=== PATIENT | male | born 1960 | race Caucasian/White ===

== ENCOUNTER 2019-02-21 11:16 | Outpatient (CLI) | payer MEDICAID, SELFPAY ==
--- NOTE | 2019-02-21 11:24 | XRR_ITS ---
PROCEDURE INFORMATION: Exam: XR Left Knee Exam date and time: 02/21/2019 11:45 AM Age: 58 years old Clinical indication: Knee; Left; Patient HX: Pain for 3 weeks, no trauma; Additional info: Left knee joint pain TECHNIQUE: Imaging protocol: XR Left knee. Views: Frontal, lateral, and 2 oblique views. COMPARISON: No relevant prior studies available. FINDINGS: Bones/joints: Normal. Soft tissues: Normal. XR/XR knee LT 4V [id number] IMPRESSION: No acute findings.
== END 2019-02-21 11:17 | disposition home or self-care (01) ==
LOC: RAD 11:20
PROVIDERS: Family Provider Internal Medicine; PCP Internal Medicine; Visit Provider Internal Medicine
DX: M25.562 Pain in left knee (principal)
CPT/HCPCS: 73564

== ENCOUNTER 2019-08-21 13:40 | Emergency (ER) | payer MEDICARE, MEDICAID, SELFPAY ==
[2019-08-21 14:29] VITALS: BP 121/72; PULSE 87; RESP 14; TEMP 37.3; O2SAT 95; BMI 30.5
[2019-08-21 14:40] VITALS: RESP 18
--- NOTE | 2019-08-21 15:04 | XRR_ITS ---
PROCEDURE INFORMATION: Exam: XR Right Knee Exam date and time: 08/21/2019 3:46 PM Age: 59 years old Clinical indication: Injury or trauma; Injury history: Stepped in a hole, twisting right knee; Initial encounter; Sprain or strain; Patella or knee; Injury date: 08/21/19; Injury details: Stepped in hole, twisting right knee. Right leg feels unsteady. ; Additional info: Injury and pain with weightbearing. TECHNIQUE: Imaging protocol: XR Right knee. Views: 3 views. COMPARISON: No relevant prior studies available. FINDINGS: Bones/joints: There is no evidence for acute fracture or malalignment. Soft tissues: Normal. XR/XR knee RT 3V* [id number] IMPRESSION: No acute findings. If there is desire for further evaluation, a MRI could be performed.
--- NOTE | 2019-08-21 15:29 | W.ED.EXTPRO ---
HPI - Extremity Problem General: Chief complaint: Extremity Injury, Lower Stated complaint: R knee injury Time Seen by Provider: 08/21/19 15:03 History of Present Illness: HPI Narrative: Patient is a 59-year-old male who comes to the ED with right knee pain. This morning patient was walking outside and he stepped in a hole causing him to twist his right knee. He did not fall down or hit his head or lose consciousness. He now has right knee pain and he says that when he walks on his right leg feels unsteady. He currently rates the pain a 10 out of 10. Associated symptoms: Deny chest pain, fever(s) or rash Review of Systems Const: Denies: fever(s), chills or fatigue Eyes: Denies: change in vision or eye discomfort ENMT: Denies: throat pain, odynophagia, nasal discharge or nasal congestion Card: Denies: chest pain, palpitations, edema, swelling of feet/ankles, dyspnea on exertion or orthopnea Resp: Denies: dyspnea, productive cough or non-productive cough GI: Denies: abdominal pain, nausea, vomiting, diarrhea, constipation or hematochezia : Denies: flank pain, difficulty urinating, dysuria or hematuria Musc: Reports: extremity pain (right knee); Denies: neck pain, back pain or extremity swelling Skin/Breast: Denies: rash or new lesions Neuro: Denies: headache(s), numbness in extremities or weakness in extremities [facility] ED PFSH: Medical History History of amputation of great toe Hypertension Onycholysis of toenail Polyneuropathy due to type 2 diabetes mellitus Family History Mother Diabetes Denies family history of CAD (coronary artery disease) Clotting disorder Dementia Hyperlipidemia Psychiatric illness Chronic kidney disease (CKD) Suicide Anesthesia complication Bleeding disorder Family history of premature coronary artery disease Lung disease Cancer Hypertension Stroke Social History Smoking and tobacco status: never smoked Alcohol intake: never Substance/Drug Use: never Current occupational status: disabled Physical Exam Const: COMMON NORMALS: patient oriented x3 and alert GENERAL APPEARANCE: cooperative and comfortable NUTRITIONAL APPEARANCE: overweight HENMT: COMMON NORMALS: normocephalic HEAD & SCALP: normocephalic MOUTH: Normal oral and palatal mucosa present THROAT: posterior oropharynx normal and uvula midline Eye: COMMON NORMALS: Equal, round and reactive pupils present PUPIL: Yes Equal, round and reactive pupils present Neck/C-Spine: COMMON NORMALS: supple GENERAL: Yes normal visual inspection Resp: COMMON NORMALS: normal respiratory effort, No retractions, No use of accessory muscles and clear to auscultation bilaterally AUSCULTATION: clear to auscultation bilaterally Cardio: COMMON NORMALS: regular rate, regular rhythm, S1 normal heart sound present, S2 normal heart sound present, No gallops present (Cardio), No clicks present (Cardio), No murmurs present (Cardio) and Peripheral pulses 2+ throughout RATE: regular rate RHYTHM: regular rhythm HEART SOUNDS: S1 normal heart sound present and S2 normal heart sound present PERIPHERAL PULSES: Peripheral pulses 2+ throughout GI: COMMON NORMALS: Normal to inspection, nondistended, normoactive bowel sounds present, Soft to palpation, non-tender and no masses PALPATION: Yes Soft to palpation : COMMON NORMALS: Yes no CVA tenderness BLADDER/KIDNEY EXAM: Yes no CVA tenderness Back/Pelvis: COMMON NORMALS: no CVA tenderness Extremity: COMMON NORMALS: no pedal edema GENERAL: Yes normal exam except as noted RIGHT LOWER EXTREMITY: Yes knee joint Right knee: Yes palpation (tenderness to medial and lateral aspect of knee), Yes ROM (limited due to pain) and Yes neurovascular exam (intact) Neuro: COMMON NORMALS: patient oriented x3 and moves all extremities SENSORIUM/ORIENTATION: Yes alert Skin: COMMON NORMALS: no rashes or lesions noted GENERAL SKIN EXAM: no rashes or lesions noted and dry skin Course Vital Signs: Vital signs: Vital Signs Temperature 99.1 F 08/21/19 14:29 Pulse Rate 87 08/21/19 14:29 Respiratory Rate 18 08/21/19 14:40 Blood Pressure 121/72 08/21/19 14:29 Pulse Oximetry 95 08/21/19 14:29 MDM - Extremity (Nontraumatic) MDM Narrative: Medical decision making narrative: Patient is a 59-year-old male who comes to the ED with right knee pain after having a twist injury this morning. Right knee x-ray showed no acute fractures. I spoke with patient and told him that there are no acute fractures or findings but this does not rule out any soft tissue/ligament tears and that patient would need outpatient imaging set up for further eval by his PCP. Patient was placed in a knee immobilizer and told to follow-up with PCP in 7 to 10 days. He was told to return to the ED if symptoms worsen. Patient understood and agreed with plan. Imaging Data^: Xray Ortho: Attestation: I personally reviewed and interpreted this imaging study as follows: My impression: right knee--No acute findings Radiologist's impression: [address] [address] XRay Report Signed Patient: Lamberto Oliva Unit #: [id number] : 1960 Age/Sex: 59 / M ADM Date: 08/21/19 Loc: ER Room/Bed: Attending Dr: Ordering Provider/Ordering MD: Brady Tapia Date of Service: 08/21/19 Procedure(s): XR knee RT 3V* [id number] Accession Number(s): [id number] Report Number: [id number] PROCEDURE INFORMATION: Exam: XR Right Knee Exam date and time: 08/21/2019 3:46 PM Age: 59 years old Clinical indication: Injury or trauma; Injury history: Stepped in a hole, twisting right knee; Initial encounter; Sprain or strain; Patella or knee; Injury date: 08/21/19; Injury details: Stepped in hole, twisting right knee. Right leg feels unsteady. ; Additional info: Injury and pain with weightbearing. TECHNIQUE: Imaging protocol: XR Right knee. Views: 3 views. COMPARISON: No relevant prior studies available. FINDINGS: Bones/joints: There is no evidence for acute fracture or malalignment. Soft tissues: Normal. XR/XR knee RT 3V* [id number] IMPRESSION: No acute findings. If there is desire for further evaluation, a MRI could be performed. Dictated By: Dylan Styles MD Signed By: Dylan Styles MD Signed Date/Time: 08/21/191650 DD/ 49 Discharge Plan Discharge Patient Disposition: Home, Self-Care Clinical Impression: Acute pain of right knee Condition: Stable Prescriptions: No Action lisinopril-hydrochlorothiazide 20-12.5 mg tablet 1 tab PO DAILY RF: 0 Aspir-81 81 mg Tablet,Delayed Release (Dr/Ec) 81 mg PO DAILY RF: 0 glimepiride 4 mg tablet 4 mg PO DAILY RF: 0 diclofenac sodium 50 mg tablet,delayed release (DR/EC) 50 mg PO BID PRN (Reason: Pain) RF: 0 gabapentin 100 mg capsule 100 mg PO TID RF: 0 lovastatin 20 mg tablet 20 mg PO DAILY RF: 0 metformin 500 mg tablet extended release 24 hr 500 mg PO BID RF: 0 Victoza 2-Kwame 0.6 mg/0.1 mL (18 mg/3 mL) pen injector 1.2 mg SUBCUT DAILY RF: 0 Jardiance 10 mg tablet 10 mg PO DAILY RF: 0 Discharge Orders: Discharge Order (Routine); Ordered 08/21/19 Ordered By: Brady Tapia Referrals: Lauren Kaufman MD [Primary Care Provider] - Discharge Diet: Regular Discharge Activity: Limit activity as instructed and Use walker/crutches as instructed Patient Instructions: Knee Sprain (ED), Knee Pain (ED) Activity Restrictions/Additional Instructions: Follow-up with medical provider as directed in 5-7 days. Take ibuprofen or Tylenol for pain. Rest, ice and elevate right leg. Return to the ER or your medical provider if condition worsens. Please read and understand discharge instructions. If any questions, please ask. Discharge Date/Time: 08/21/19 17:03 Coding Level of Care Code ED Windows Technical Specialist for Aki Fwd Exam Comprehensive
[2019-08-21] MEDS: HYDROcodone-acetaminophen 7.5-325 mg Tablet 1 TAB PO (16:36)
== END 2019-08-21 17:03 | disposition home or self-care (01) ==
PROVIDERS: Emergency Provider Physician Assistant; PCP Internal Medicine
DX: M25.561 Pain in right knee (principal); Z79.82 Long term (current) use of aspirin; I10 Essential (primary) hypertension; E11.42 Type 2 diabetes mellitus with diabetic polyneuropathy
CPT/HCPCS: 12345; 29530; 73562; 99281; 99283

== ENCOUNTER 2019-09-12 14:43 | Outpatient (CLI) | payer MEDICARE, MEDICAID, SELFPAY ==
--- NOTE | 2019-09-12 15:15 | MR_ITS ---
WS: [id number] MRI LEFT KNEE HISTORY: M17.11 Unilateral primary osteoarthritis, LEFT knee COMPARISON: 02/21/2019 Anterior cruciate ligament: There is mild thinning and increased signal in the ACL but majority of fi bers are intact. There is mild waviness throughout the ACL suggests there may be some scarring presen t. Posterior cruciate ligament: Intact. Medial collateral ligament: Intact. Posterior lateral corner structures: Intact. Medial menisci: Linear increased signal in the posterior horn does not definitely extend to an articu lar surface. Cannot confirm a horizontal tear. Lateral meniscus: Intact. Normal signal, size and shape. Extensor mechanism: Distal quadriceps tendon and patellar tendons are intact. Fluid and soft tissue: Small suprapatellar effusion and soft tissue edema surrounding the knee. No Ba ker's cyst. Osseous and articular structures: Patellofemoral compartment: Normal. Medial compartment: Mild narrowing medial compartment with thinning and fissuring of the cartilage. T here is no underlying marrow edema. Small osteophytes from the medial joint line. Lateral compartment: No marrow edema. Very mild thinning of the cartilage and a shallow cartilage def ect along the tibial plateau. MR/MR knee LT wo con* [id number] IMPRESSION: 1. Mild medial and lateral compartment osteoarthropathy. 2. Shallow cartilaginous defect along the lateral tibial plateau. 3. No marrow edema or fractures. 4. Linear increased signal in the posterior horn of the medial meniscus withou t definite extension to an articular surface. 5. Mild tethering of the distal ACL may indicate some scarring and fibrosis. N o complete tear.
== END 2019-09-12 14:44 | disposition home or self-care (01) ==
PROVIDERS: PCP Internal Medicine; Visit Provider Orthopaedic Surgery
DX: M17.0 Bilateral primary osteoarthritis of knee (principal); M89.48 Other hypertrophic osteoarthropathy, other site
CPT/HCPCS: 73721

== ENCOUNTER 2019-10-12 08:46 | Outpatient (RCR) | payer MEDICARE, MEDICAID, SELFPAY | END 2019-11-07 23:59 | disposition home or self-care (01) | LOC: SPT 08:46 | PROVIDERS: PCP Internal Medicine; Referring Provider Orthopaedic Surgery; Visit Provider Orthopaedic Surgery | DX: M17.12 Unilateral primary osteoarthritis, left knee (principal) | CPT/HCPCS: 97110; 97161 ==

== ENCOUNTER → 2020-04-10 15:46 | Outpatient (BNVA) | payer MEDICARE, MEDICAID, SELFPAY | PROVIDERS: PCP Internal Medicine; Visit Provider Nurse Practitioner Family | DX: M25.531 Pain in right wrist (principal); X50.0XXA Overexertion from strenuous movement or load, initial encounter; Z68.33 Body mass index [BMI] 33.0-33.9, adult | CPT/HCPCS: 73110 ==

== ENCOUNTER → 2020-07-28 14:43 | Outpatient (BNVA) | payer MEDICARE, MEDICAID, SELFPAY | PROVIDERS: PCP Internal Medicine; Referring Provider Nurse Practitioner Family; Visit Provider Specialist | DX: M25.531 Pain in right wrist (principal); G56.21 Lesion of ulnar nerve, right upper limb | CPT/HCPCS: 95908 ==

== ENCOUNTER 2020-10-25 09:16 | Emergency (ER) | payer MEDICARE, MEDICAID, SELFPAY ==
[2020-10-25 09:25] VITALS: BP 112/67; PULSE 86; RESP 19; TEMP 37.1; O2SAT 97; BMI 30.2
--- NOTE | 2020-10-25 09:28 | W.ED.EXTPRO ---
HPI - Extremity Problem General: Chief complaint: Extremity Problem,Nontraumatic Stated complaint: Lft Shoulder Pain Time Seen by Provider: 10/25/20 09:19 Source: patient Mode of arrival: ambulatory Limitations: no limitations History of Present Illness: HPI Narrative: Patient is a nice 60-year-old male who presents to ED today for evaluation of left shoulder discomfort that he states has been present over the past week. Patient tells me he has had similar discomforts off and on for several years. Patient states he sometimes will have pain and tingling to his left hand. He has not noticed any weakness or atrophy to the extremity. His pain is exacerbated by range of motion of the shoulder joint. He has been told at one point he possibly could have a rotator cuff tear. Patient denies neck pain. He has not had any acute injury or trauma to the shoulder. He has no complaints of chest pain, shortness of breath, difficulty breathing. MD Complaint: joint pain Onset (ago): day(s) Pain Consistency: constant Location: left and upper extremity Radiation: none Exacerbating factors: range of motion and palpation Associated symptoms: Reports no associated symptoms; Deny chest pain or fever(s) Review of Systems Const: Denies: fever(s), chills, body aches, fatigue or malaise Card: Denies: chest pain, palpitations, irregular heart rhythm, edema, syncope, pre-syncope, dyspnea on exertion, orthopnea or acrocyanosis Resp: Denies: dyspnea Musc: Reports: joint pain (L shoulder); Denies: neck pain, back pain, extremity pain, extremity swelling, joint swelling, joint redness, joint warmth, joint stiffness or decrease in muscle mass Neuro: Reports: sensory changes (reports intermittent paresthesias to left arm); Denies: headache(s) or weakness in extremities [facility] ED PFSH: Medical History (Updated 10/25/20 @ 09:31 by MONA Weeks) History of amputation of great toe Hypertension Onycholysis of toenail Polyneuropathy due to type 2 diabetes mellitus Family History Mother Diabetes Denies family history of CAD (coronary artery disease) Clotting disorder Dementia Hyperlipidemia Psychiatric illness Chronic kidney disease (CKD) Suicide Anesthesia complication Bleeding disorder Family history of premature coronary artery disease Lung disease Cancer Hypertension Stroke Social History Smoking and tobacco status: never smoked Alcohol intake: never Current occupational status: disabled Physical Exam Const: COMMON NORMALS: no acute distress, average body habitus, patient oriented x3, no limitations, healthy appearing, alert and well nourished GENERAL APPEARANCE: cooperative ORIENTATION/CONSCIOUSNESS: Yes awake, Yes oriented to person, Yes oriented to place and Yes oriented to time Neck/C-Spine: COMMON NORMALS: full ROM CERVICAL SPINE: Yes cervical ROM normal, No pain with cervical ROM, No Cervical spine tenderness, No step off deformity and No Paracervical muscle tenderness Resp: COMMON NORMALS: normal respiratory effort and clear to auscultation bilaterally AUSCULTATION: clear to auscultation bilaterally Cardio: COMMON NORMALS: regular rate and regular rhythm RATE: regular rate RHYTHM: regular rhythm Extremity: COMMON NORMALS: normal to inspection, capillary refill normal, no joint enlargement and no clubbing, cyanosis or edema GENERAL: Yes normal exam except as noted LEFT UPPER EXTREMITY: Yes shoulder joint OTHER: full but hesitant ROM; he reports pain to anterior shoulder with flexion/abduction past about 90 degrees; NV intact Neuro: COMMON NORMALS: patient oriented x3, moves all extremities, no focal motor deficits, no sensory deficits noted and gait normal SENSORIUM/ORIENTATION: Yes alert, Yes oriented to person, Yes oriented to place and Yes oriented to time SENSORY EXAM: Yes other (normal sensory to bilateral UEs) MOTOR EXAM: 5/5 motor strength present throughout and Other motor observations present (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 Pain is reproducible on exam. DDx labrum tear, shoulder impingement, biceps/rotator cuff tendinopathy, glenohumeral arthritis. Recommend follow up with PCP in 1-2 weeks if pain persists. Will place on steroids and can use topical voltaran gel. Discharge Plan Discharge Patient Disposition: Home Clinical Impression: Chronic left shoulder pain Condition: Stable Prescriptions: New Medrol (Kwame) 4 mg tablets,dose pack See Rx Instructions .ROUTE .COMPLEX Qty: 21 RF: 0 Voltaren Arthritis Pain 1 % gel 2 g topical TID Qty: 100 RF: 0 Discontinued diclofenac sodium 50 mg tablet,delayed release (DR/EC) 50 mg PO BID PRN (Reason: Pain) RF: 0 No Action (DME) Diabetic Shoes with 3 pairs of insterts See Rx Instructions .Route .MEDSUPPLY Qty: 1 RF: 0 (DME) Elbow pad See Rx Instructions .Route .MEDSUPPLY Qty: 1 RF: 0 lisinopril-hydrochlorothiazide 20-12.5 mg tablet 1 tab PO DAILY RF: 0 Aspir-81 81 mg Tablet,Delayed Release (Dr/Ec) 81 mg PO DAILY RF: 0 glimepiride 4 mg tablet 4 mg PO DAILY RF: 0 gabapentin 100 mg capsule 100 mg PO TID RF: 0 lovastatin 20 mg tablet 20 mg PO DAILY RF: 0 metformin 500 mg tablet extended release 24 hr 500 mg PO BID RF: 0 Victoza 2-Kwame 0.6 mg/0.1 mL (18 mg/3 mL) pen injector 1.2 mg SUBCUT DAILY RF: 0 Jardiance 10 mg tablet 10 mg PO DAILY RF: 0 Discharge Orders: Discharge ED (Routine); Ordered 10/25/20 Ordered By: Chaya Keene Referrals: Lauren Kaufman MD [Primary Care Provider] - Activity Restrictions/Additional Instructions: As we discussed please follow-up with your primary care provider for further evaluation of your left shoulder discomfort. This could include continued conservative management, MRI imaging, physical therapy, or referral to orthopedics. Coding Level of Care Code ED Douper for Aik Jimenez
[2020-10-25 09:32] VITALS: BP 112/67; PULSE 55; RESP 17; O2SAT 96
[2020-10-25] MEDS: dexamethasone 10 mg/mL INJ 6 MG IM (09:36)
[2020-10-25 10:01] VITALS: BP 112/67; PULSE 88; RESP 17; TEMP 37.1; O2SAT 97
== END 2020-10-25 10:15 | disposition home or self-care (01) ==
PROVIDERS: Emergency Provider Physician Assistant; PCP Internal Medicine
DX: G89.29 Other chronic pain (principal); M25.512 Pain in left shoulder; Z79.82 Long term (current) use of aspirin; Z79.84 Long term (current) use of oral hypoglycemic drugs; I10 Essential (primary) hypertension; E11.42 Type 2 diabetes mellitus with diabetic polyneuropathy
CPT/HCPCS: 96372; 99283; J1100

== ENCOUNTER 2021-04-11 12:24 | Emergency (ER) | payer MEDICARE, MEDICAID, SELFPAY ==
[2021-04-11 12:31] VITALS: BP 128/84; PULSE 87; RESP 16; TEMP 37; O2SAT 97
--- NOTE | 2021-04-11 12:38 | W.ED.LOWEXIN ---
HPI - Extremity Injury (Lower) General: Chief Complaint: Extremity Injury, Lower Stated Complaint: Right foot injury Time Seen by Provider: 04/11/21 12:38 Source: patient Mode of arrival: ambulatory Limitations: no limitations History of Present Illness: Patient is a 60-year-old male who presents to ED today for evaluation of a right ankle/foot injury that he sustained yesterday after he stepped off of his truck trailer and rolled his ankle. Patient states he has been ambulatory on the extremity since. No other injuries or complaints at this time. MD complaint: ankle injury and foot injury Onset (ago): day(s) (yesterday) Injury: Right: ankle and foot Place: home Severity: moderate Relieving factors: immobilization Exacerbating factors: weight bearing, movement and palpation Associated symptoms: Reports no associated symptoms Other symptoms: none Review of Systems Musc: Reports: extremity pain (R foot), extremity swelling (R ankle) and joint swelling (R ankle) Neuro: Denies: numbness in extremities or sensory changes [facility] ED PFSH: Medical History (Updated 04/11/21 @ 13:36 by MONA Weeks) History of amputation of great toe Hypertension Onycholysis of toenail Polyneuropathy due to type 2 diabetes mellitus Family History Mother Diabetes Denies family history of CAD (coronary artery disease) Clotting disorder Dementia Hyperlipidemia Psychiatric illness Chronic kidney disease (CKD) Suicide Anesthesia complication Bleeding disorder Family history of premature coronary artery disease Lung disease Cancer Hypertension Stroke Social History Smoking and tobacco status: never smoked Alcohol intake: never Current occupational status: disabled Physical Exam Const: COMMON NORMALS: no acute distress, no limitations and alert GENERAL APPEARANCE: cooperative Extremity: GENERAL: Yes normal exam except as noted RIGHT LOWER EXTREMITY: Yes foot & digits (TTP and swelling to lateral malleolus) Right ankle: Yes neurovascular exam (normal) and Yes foot & digits (TTP lateral proximal foot w/o swelling or deformity) Right foot and digits: Yes neurovascular exam (normal) Neuro: COMMON NORMALS: moves all extremities, no focal motor deficits and no sensory deficits noted SENSORIUM/ORIENTATION: Yes alert Course Vital Signs: Vital signs: Vital Signs Temperature 98.6 F 04/11/21 12:31 Pulse Rate 87 04/11/21 12:31 Respiratory Rate 16 04/11/21 12:31 Blood Pressure 128/84 04/11/21 12:31 Pulse Oximetry 97 04/11/21 12:31 MDM - Extremity Injury (Lower) Medical Decision Making XRs negative. Will JONNATHAN wrap. Declines crutches. Discussed RICE therapy. Follow up with PCP in 1-2 weeks if pain persists. Discharge Plan Discharge Patient Disposition: Home Clinical Impression: Right ankle sprain Qualifiers: Encounter type: initial encounter Involved ligament of ankle: unspecified ligament Qualified Code(s): S93.401A - Sprain of unspecified ligament of right ankle, initial encounter Condition: Stable Prescriptions: No Action (DME) Diabetic Shoes with 3 pairs of insterts See Rx Instructions .Route .MEDSUPPLY Qty: 1 0RF Rx Instructions: As directed by [employer] (DME) Elbow pad See Rx Instructions .Route .MEDSUPPLY Qty: 1 0RF Rx Instructions: As directed (DME) Diabetic shoes with 3 sets of insoles See Rx Instructions .Route .MEDSUPPLY Qty: 1 0RF Rx Instructions: As directed by HOME Medrol (Kwame) 4 mg tablets,dose pack See Rx Instructions .ROUTE .COMPLEX Qty: 21 0RF Rx Instructions: orally per package directions Voltaren Arthritis Pain 1 % gel 2 g topical TID Qty: 100 0RF Rx Instructions: apply to left shoulder up to 3x daily as needed for discomfort lisinopril-hydrochlorothiazide 20-12.5 mg tablet 1 tab PO DAILY 0RF Aspir-81 81 mg Tablet,Delayed Release (Dr/Ec) 81 mg PO DAILY 0RF glimepiride 4 mg tablet 4 mg PO DAILY 0RF gabapentin 100 mg capsule 100 mg PO TID 0RF lovastatin 20 mg tablet 20 mg PO DAILY 0RF metformin 500 mg tablet extended release 24 hr 500 mg PO BID 0RF Victoza 2-Kwame 0.6 mg/0.1 mL (18 mg/3 mL) pen injector 1.2 mg SUBCUT DAILY 0RF Jardiance 10 mg tablet 10 mg PO DAILY 0RF Discharge Orders: Discharge ED (Routine); Ordered 04/11/21 Ordered By: Chaya Keene Referrals: Lauren Kaufman MD [Primary Care Provider] - Patient Instructions: Ankle Sprain (ED), RICE Therapy Coding Level of Care Code ED Pecan Mallow Dipper for Aki Jimenez
--- NOTE | 2021-04-11 12:41 | XRR_ITS ---
PROCEDURE INFORMATION: Exam: XR Right Foot Exam date and time: 04/11/2021 12:41 PM Age: 60 years old Clinical indication: Injury or trauma; Fall; Blunt trauma; Right; Patient HX: C/O R foot/ ankle pain and swelling after missing a step; Additional info: Pain, injury TECHNIQUE: Imaging protocol: XR Right foot. Views: 3 or more views. COMPARISON: CR XR knee RT 3V* [id number] 08/21/2019 3:34 PM FINDINGS: Bones/joints: Osseous structures are intact. Negative for fracture. Joint spaces are preserved. Soft tissues: Normal. XR/XR foot RT min 3V* [id number] IMPRESSION: No acute findings.
--- NOTE | 2021-04-11 12:41 | XRR_ITS ---
PROCEDURE INFORMATION: Exam: XR Right Ankle Exam date and time: 04/11/2021 12:41 PM Age: 60 years old Clinical indication: Injury or trauma; Fall; Blunt trauma; Right; Patient HX: C/O R foot/ ankle pain and swelling after missing a step; Additional info: Injury, pain TECHNIQUE: Imaging protocol: XR Right ankle. Views: 3 or more views. COMPARISON: CR XR knee RT 3V* [id number] 08/21/2019 3:34 PM FINDINGS: Bones/joints: Osseous structures are intact. Negative for fracture. Joint spaces are preserved. Soft tissues: Soft tissue swelling noted around the ankle. XR/XR ankle RT min 3V* [id number] IMPRESSION: No acute findings.
== END 2021-04-11 13:47 | disposition home or self-care (01) ==
PROVIDERS: Emergency Provider Physician Assistant; PCP Internal Medicine
DX: S93.401A Sprain of unspecified ligament of right ankle, initial encounter (principal); Z79.84 Long term (current) use of oral hypoglycemic drugs; Z79.82 Long term (current) use of aspirin; I10 Essential (primary) hypertension; E11.42 Type 2 diabetes mellitus with diabetic polyneuropathy; X50.1XXA Overexertion from prolonged static or awkward postures, initial encounter
CPT/HCPCS: 73610; 73630; 99282

== ENCOUNTER → 2021-04-22 10:35 | Outpatient (BNVA) | payer MEDICARE, MEDICAID, SELFPAY | PROVIDERS: PCP Internal Medicine; Visit Provider Podiatrist Foot & Ankle Surgery | DX: M25.571 Pain in right ankle and joints of right foot (principal); M12.9 Arthropathy, unspecified; Z46.89 Encounter for fitting and adjustment of other specified devices; S93.401D Sprain of unspecified ligament of right ankle, subsequent encounter; S82.839D Other fracture of upper and lower end of unspecified fibula, subsequent encounter for closed fracture with routine healing; X58.XXXD Exposure to other specified factors, subsequent encounter | CPT/HCPCS: 73610; 97760; L1902 ==

== ENCOUNTER 2021-04-22 11:44 | Outpatient (CLI) | payer MEDICARE, MEDICAID, SELFPAY | END 2021-04-22 11:45 | disposition home or self-care (01) | LOC: SPT 11:45 | PROVIDERS: PCP Internal Medicine; Visit Provider Podiatrist Foot & Ankle Surgery | DX: Z46.89 Encounter for fitting and adjustment of other specified devices (principal); S93.401D Sprain of unspecified ligament of right ankle, subsequent encounter; S82.839D Other fracture of upper and lower end of unspecified fibula, subsequent encounter for closed fracture with routine healing; X58.XXXD Exposure to other specified factors, subsequent encounter | CPT/HCPCS: 97760; L1902 ==

== ENCOUNTER → 2021-05-26 13:13 | Outpatient (BNVA) | payer MEDICARE, MEDICAID, SELFPAY | PROVIDERS: PCP Internal Medicine; Visit Provider Podiatrist Foot & Ankle Surgery | DX: S82.839A Other fracture of upper and lower end of unspecified fibula, initial encounter for closed fracture (principal); S93.401A Sprain of unspecified ligament of right ankle, initial encounter; W19.XXXA Unspecified fall, initial encounter; E11.42 Type 2 diabetes mellitus with diabetic polyneuropathy; L60.3 Nail dystrophy; I73.9 Peripheral vascular disease, unspecified; Q66.70 Congenital pes cavus, unspecified foot | CPT/HCPCS: 73610; 99213; 99214 ==

== ENCOUNTER → 2021-06-15 09:04 | Outpatient (BNVA) | payer MEDICARE, MEDICAID, SELFPAY | PROVIDERS: PCP Internal Medicine; Visit Provider Podiatrist Foot & Ankle Surgery | DX: L60.3 Nail dystrophy (principal); Q66.70 Congenital pes cavus, unspecified foot; M25.571 Pain in right ankle and joints of right foot; S82.831A Other fracture of upper and lower end of right fibula, initial encounter for closed fracture; S93.401A Sprain of unspecified ligament of right ankle, initial encounter; M76.71 Peroneal tendinitis, right leg; X58.XXXA Exposure to other specified factors, initial encounter | CPT/HCPCS: 73610; 99213; 99214 ==

== ENCOUNTER → 2021-07-23 14:07 | Outpatient (BNVA) | payer MEDICARE, MEDICAID, SELFPAY | PROVIDERS: PCP Internal Medicine; Visit Provider Podiatrist Foot & Ankle Surgery | DX: M76.71 Peroneal tendinitis, right leg (principal); M25.571 Pain in right ankle and joints of right foot; M79.671 Pain in right foot; L60.3 Nail dystrophy; Q66.72 Congenital pes cavus, left foot; Q66.71 Congenital pes cavus, right foot; S82.839A Other fracture of upper and lower end of unspecified fibula, initial encounter for closed fracture; S93.401A Sprain of unspecified ligament of right ankle, initial encounter; X50.1XXA Overexertion from prolonged static or awkward postures, initial encounter | CPT/HCPCS: 73610; 99214 ==

== ENCOUNTER → 2021-08-04 11:12 | Outpatient (BNVA) | payer MEDICARE, MEDICAID, SELFPAY | PROVIDERS: PCP Internal Medicine; Visit Provider Podiatrist Foot & Ankle Surgery | DX: E11.43 Type 2 diabetes mellitus with diabetic autonomic (poly)neuropathy (principal); E11.42 Type 2 diabetes mellitus with diabetic polyneuropathy; L60.3 Nail dystrophy; I73.9 Peripheral vascular disease, unspecified; Q66.70 Congenital pes cavus, unspecified foot | CPT/HCPCS: 11721; 99213 ==

== ENCOUNTER 2021-08-04 12:24 | Outpatient (CLI) | payer MEDICARE, MEDICAID, SELFPAY | END 2021-08-04 12:25 | disposition home or self-care (01) | LOC: SPT 12:25 | PROVIDERS: PCP Internal Medicine; Visit Provider Podiatrist Foot & Ankle Surgery | DX: Z46.89 Encounter for fitting and adjustment of other specified devices (principal); S82.839D Other fracture of upper and lower end of unspecified fibula, subsequent encounter for closed fracture with routine healing; S93.401D Sprain of unspecified ligament of right ankle, subsequent encounter; X58.XXXD Exposure to other specified factors, subsequent encounter | CPT/HCPCS: L1902 ==

== ENCOUNTER 2021-08-05 14:23 | Outpatient (CLI) | payer MEDICARE, MEDICAID, SELFPAY ==
--- NOTE | 2021-08-05 14:37 | XR_ITS ---
WS: [id number] XR knee LT 4V [id number] REASON FOR EXAM: PAIN IN LEFT KNEE FINDINGS: No fracture or focal bone lesion. Mild narrowing of the medial and lateral knee joint spaces, more prominent in the medial knee joint s pace where there is subchondral sclerosis medial tibial plateau. There is mild subchondral sclerosis with small marginal osteophytes in the patella. Small bony body midline anteriorly. Not within the joint space. The knee is relatively unchanged compared to previous examination of 02/21/2019. XR/XR knee LT 4V [id number] IMPRESSION: The knee is relatively unchanged compared to previous examination of 02/21/2019. Mild changes of osteoarthritis.
== END 2021-08-05 14:24 | disposition home or self-care (01) ==
PROVIDERS: PCP Internal Medicine; Visit Provider Internal Medicine
DX: M25.562 Pain in left knee (principal)
CPT/HCPCS: 73564

== ENCOUNTER → 2021-10-07 09:56 | Outpatient (BNVA) | payer MEDICARE, MEDICAID, SELFPAY | PROVIDERS: PCP Internal Medicine; Visit Provider Podiatrist Foot & Ankle Surgery | DX: M76.71 Peroneal tendinitis, right leg (principal); M25.571 Pain in right ankle and joints of right foot; G89.29 Other chronic pain; L60.3 Nail dystrophy; M20.41 Other hammer toe(s) (acquired), right foot; M20.42 Other hammer toe(s) (acquired), left foot; S82.839A Other fracture of upper and lower end of unspecified fibula, initial encounter for closed fracture; S93.401A Sprain of unspecified ligament of right ankle, initial encounter; M25.371 Other instability, right ankle; X58.XXXA Exposure to other specified factors, initial encounter | CPT/HCPCS: 20550; 99213; 99214 ==

== ENCOUNTER → 2022-01-04 07:36 | Outpatient (BNVA) | payer MEDICARE, MEDICAID, SELFPAY | PROVIDERS: PCP Internal Medicine; Visit Provider Podiatrist Foot & Ankle Surgery | DX: L60.3 Nail dystrophy (principal); Q66.70 Congenital pes cavus, unspecified foot; M76.71 Peroneal tendinitis, right leg; M25.371 Other instability, right ankle; S93.401A Sprain of unspecified ligament of right ankle, initial encounter; S82.831A Other fracture of upper and lower end of right fibula, initial encounter for closed fracture; X58.XXXA Exposure to other specified factors, initial encounter; Z79.84 Long term (current) use of oral hypoglycemic drugs | CPT/HCPCS: 99213 ==

== ENCOUNTER → 2022-02-11 13:53 | Outpatient (BNVA) | payer MEDICARE, MEDICAID, SELFPAY | PROVIDERS: PCP Internal Medicine; Visit Provider Podiatrist Foot & Ankle Surgery | DX: M79.671 Pain in right foot (principal); M25.371 Other instability, right ankle | CPT/HCPCS: 73600; 73630; 99214 ==

== ENCOUNTER → 2022-04-08 08:49 | Outpatient (BNVA) | payer MEDICARE, MEDICAID, SELFPAY | PROVIDERS: PCP Internal Medicine; Visit Provider Podiatrist Foot & Ankle Surgery | DX: E11.42 Type 2 diabetes mellitus with diabetic polyneuropathy (principal); I73.9 Peripheral vascular disease, unspecified; M20.42 Other hammer toe(s) (acquired), left foot; M20.41 Other hammer toe(s) (acquired), right foot; M25.371 Other instability, right ankle; Z79.84 Long term (current) use of oral hypoglycemic drugs | CPT/HCPCS: 99214 ==

== ENCOUNTER → 2022-05-24 07:44 | Outpatient (BNVA) | payer MEDICARE, MEDICAID, SELFPAY | PROVIDERS: PCP Internal Medicine; Visit Provider Podiatrist Foot & Ankle Surgery | DX: M25.371 Other instability, right ankle (principal); E11.42 Type 2 diabetes mellitus with diabetic polyneuropathy; M20.41 Other hammer toe(s) (acquired), right foot; M20.42 Other hammer toe(s) (acquired), left foot; I73.9 Peripheral vascular disease, unspecified; Z79.84 Long term (current) use of oral hypoglycemic drugs | CPT/HCPCS: 99213 ==

== ENCOUNTER → 2022-07-06 07:52 | Outpatient (BNVA) | payer MEDICARE, MEDICAID, SELFPAY | PROVIDERS: PCP Internal Medicine; Visit Provider Podiatrist Foot & Ankle Surgery | DX: M25.371 Other instability, right ankle (principal); E11.42 Type 2 diabetes mellitus with diabetic polyneuropathy; M20.41 Other hammer toe(s) (acquired), right foot; M20.42 Other hammer toe(s) (acquired), left foot; I73.9 Peripheral vascular disease, unspecified; S91.331A Puncture wound without foreign body, right foot, initial encounter; W45.0XXA Nail entering through skin, initial encounter; Z79.84 Long term (current) use of oral hypoglycemic drugs | CPT/HCPCS: 99214 ==

== ENCOUNTER 2022-07-18 18:06 | Emergency (ER) | payer MEDICARE, MEDICAID, SELFPAY ==
[2022-07-18 19:29] VITALS: BP 110/73; PULSE 65; RESP 14; TEMP 36.8; O2SAT 98; BMI 25.4
--- NOTE | 2022-07-18 19:56 | ED_ITS ---
HPI - Extremity Problem General: Chief complaint: Extremity Problem,Nontraumatic Stated complaint: hand injury Time Seen by Provider: 07/18/22 19:56 History of Present Illness: 61-year-old male patient comes in with right hand discomfort and mild numbness. Patient reports pain is similar to his carpal tunnel syndrome. Patient is wanting to get an injection of steroid to see if it would help. Patient also has a history of diabetes mellitus, surgical repair of carpal tunnel, hyp ertension, and hypercholesteremia. Associated symptoms: Deny chest pain Review of Systems General: Reports: 10 or more systems reviewed and unremarkable except in HPI and below Card: Denies: chest pain Resp: Denies: dyspnea GI: Denies: vomiting : Denies: difficulty urinating Musc: Reports: extremity pain and extremity swelling (Right hand) [facility] ED PFSH: Medical History (Updated 07/18/22 @ 20:01 by PAL Mendenhall) History of amputation of great toe Hypertension Onycholysis of toenail Polyneuropathy due to type 2 diabetes mellitus Family History Mother Diabetes Denies family history of CAD (coronary artery disease) Clotting disorder Dementia Hyperlipidemia Psychiatric illness Chronic kidney disease (CKD) Suicide Anesthesia complication Bleeding disorder Family history of premature coronary artery disease Lung disease Cancer Hypertension Stroke Social History Smoking and tobacco status: never smoked Alcohol intake: never Substance/Drug Use: never Current occupational status: disabled Physical Exam Const: COMMON NORMALS: alert HENMT: COMMON NORMALS: normocephalic HEAD & SCALP: normocephalic Neck/C-Spine: COMMON NORMALS: full ROM Resp: COMMON NORMALS: normal respiratory effort and clear to auscultation bilaterally AUSCULTATION: clear to auscultation bilaterally Cardio: COMMON NORMALS: regular rate and regular rhythm RATE: regular rate RHYTHM: regular rhythm Back/Pelvis: COMMON NORMALS: thoracic and lumbar spine normal to inspection Extremity: RIGHT UPPER EXTREMITY: Yes hand & digits (Minimal to no swelling, normal range of motion, patient reports numbness) Neuro: SENSORIUM/ORIENTATION: Yes alert Skin: COMMON NORMALS: no rashes or lesions noted GENERAL SKIN EXAM: no rashes or lesions noted Course Vital Signs: Vital signs: Vital Signs Temperature 98.3 F 06/11/23 19:29 Pulse Rate 70 07/18/22 20:26 Respiratory Rate 16 07/18/22 20:26 Blood Pressure 118/74 07/18/22 20:26 Pulse Oximetry 97 07/18/22 20:26 Oxygen Delivery Me thod Room Air 07/18/22 19:29 MDM - Extremity (Nontraumatic) Medical Decision Making 61-year-old male patient comes in today for complaints of numbness in his left hand that is similar to his carpal tunnel syndrome. On exam patient has good range of motion of the hand. Prompt capillary refill. Good pulses. Minimal to no swelling is noted. Differential diagnosis includes but not limited to carpal tunnel syndrome, neuropathy, DVT, arthritis. No signs of serious illness or injuries noted. Reviewed exam with patient recommended treatment and follow-up regarding carpal tunnel syndrome. Review of the record did note that he had an appointment and [address] Winters that did diagnose carpal tunnel syndrome at that time. No recent surgery has been performed patient has had it prior in the past. Recommend follow-up with specialist for further evaluation and consideration of repeat surgical correction. Discharge Plan Discharge Patient Disposition: Home Clinical Impression: Carpal tunnel syndrome of right wrist Condition: Stable Prescriptions: New tramadol 50 mg tablet 50 mg PO BID PRN (Reason: pain (scale score 7-10)) Qty: 14 0RF No Action allopurinol 100 mg tablet PO (DME) Diabetic Shoes with 3 sets of insoles See Rx Instructions .Route .MEDSUPPLY Qty: 1 0RF Rx Instructions: As directed by HOME (DME) AFO Spectrum Brace to the right See Rx Instructions .Route .MEDSUPPLY Qty: 1 0RF Rx Instructions: As directed BY ERIK&O Eric Arthritis Pain 1 % gel 2 g topical TID Qty: 100 0RF Rx Instructions: apply to left shoulder up to 3x daily as needed for discomfort lisinopril-hydrochlorothiazide 20-12.5 mg tablet 1 tab PO DAILY Aspir-81 81 mg Tablet,Delayed Release (Dr/Ec) 81 mg PO DAILY glimepiride 4 mg tablet 4 mg PO DAILY gabapentin 100 mg capsule 100 mg PO TID lovastatin 20 mg tablet 20 mg PO DAILY metformin 500 mg tablet extended release 24 hr 500 mg PO BID Victoza 2-Kwame 0.6 mg/0.1 mL (18 mg/3 mL) pen injector 1.2 mg SUBCUT DAILY Jardiance 10 mg tablet 10 mg PO DAILY Discharge Orders: Discharge ED (Routine); Ordered 07/18/22 Ordered By: Fitz Freeman Referrals: Lauren Kaufman MD [Primary Care Provider] - Discharge Diet: Usual diet Discharge Activity: Increase activity as tolerated Patient Instructions: Carpal Tunnel Syndrome (DC) Activity Restrictions/Additional Instructions: Wear Velcro wrist splint for comfort. Until pain improves. Follow-up with primary care. schedule planning manager will contact you regarding follow-up appointment with orthopedist. Return to ED for new concerns Coding Level of Care Code ED Chemistry Tutor for Aki Jimenez
[2022-07-18] MEDS: dexamethasone 10 mg/mL INJ IM (20:18)
[2022-07-18 20:26] VITALS: BP 118/74; PULSE 70; RESP 16; O2SAT 97
--- NOTE | 2022-07-19 08:53 | DCPLANNER ---
Addendum entered by Chelsea Whitman 08/13/22 10:50: Patient had a follow up appointment scheduled with ortho - patient did attend appointment. Addendum entered by Chelsea Whitman 07/22/22 09:09: Patient has a follow up appointment scheduled for Tuesday, July at 8:[address] Serrano at ortho. Original Note: staffing program manager had message to schedule a follow up appointment for patient with ortho. staffing program manager sent patients to the front office staff at ortho. Patients information will be printed and reviewed. Clinic will call patient with appointment information.
== END 2022-07-18 20:27 | disposition home or self-care (01) ==
PROVIDERS: Emergency Provider Nurse Practitioner Family; PCP Internal Medicine
DX: G56.01 Carpal tunnel syndrome, right upper limb (principal)
CPT/HCPCS: 96372; 99284; J1100

== ENCOUNTER → 2022-07-28 08:14 | Outpatient (BNVA) | payer MEDICARE, MEDICAID, SELFPAY | PROVIDERS: PCP Internal Medicine; Referring Provider Nurse Practitioner Family; Visit Provider Orthopaedic Surgery | DX: M25.531 Pain in right wrist (principal); M19.90 Unspecified osteoarthritis, unspecified site | CPT/HCPCS: 36415; 73110; 85025; 85651; 86140; 86160; 86162; 86200; 86235; 86255; 86376; 86431; 99213 ==

== ENCOUNTER 2022-08-22 08:56 | Emergency (ER) | payer MEDICARE, MEDICAID, SELFPAY ==
[2022-08-22 09:11] VITALS: BP 112/69; PULSE 75; RESP 16; TEMP 36.7; O2SAT 95
[2022-08-22 09:27] VITALS: BP 112/69; PULSE 74; RESP 18; O2SAT 95
--- NOTE | 2022-08-22 09:39 | W.ED.ANIMALB ---
HPI - Animal Bite General: Chief Complaint: Animal Bite Stated Complaint: stung on nose and left Hand unk bug Time Seen by Provider: 08/22/22 09:14 History of Present Illness: Patient is a 62-year-old male comes to the ED with an insect sting to left nose and to left hand. Sting occurred approximately 45 minutes prior to his arrival here in the ED. He was not sure if it was a hornet or wasp but it stung the left side of his nose and stung his left hand. Denies any allergic reaction to bee or wasp stings. He has a little bit of swelling on the left side of his nose and a little bit of swelling on his left hand. He says the area where the sting occurred is a little sore and tender to the touch. Denies any other symptoms. Denies any throat tightening, lip or tongue swelling or any trouble breathing. Associated symptoms: Deny chills, fever(s) or headache(s) Review of Systems Const: Denies: fever(s), chills or fatigue Eyes: Denies: change in vision or eye discomfort ENMT: Denies: throat pain, odynophagia, nasal discharge or nasal congestion Card: Denies: chest pain, palpitations, edema, swelling of feet/ankles, dyspnea on exertion or orthopnea Resp: Denies: dyspnea, productive cough or non-productive cough GI: Denies: abdominal pain, nausea, vomiting, diarrhea, constipation or hematochezia : Denies: flank pain, difficulty urinating, dysuria or hematuria Musc: Denies: neck pain, back pain or extremity swelling Skin/Breast: Reports: new lesions (Insect sting on left hand and nose.); Denies: rash Neuro: Denies: headache(s), numbness in extremities or weakness in extremities [facility] ED PFSH: Medical History (Updated 08/22/22 @ 09:46 by MONA Adames) History of amputation of great toe Hypertension Onycholysis of toenail Polyneuropathy due to type 2 diabetes mellitus Family History Mother Diabetes Denies family history of CAD (coronary artery disease) Clotting disorder Dementia Hyperlipidemia Psychiatric illness Chronic kidney disease (CKD) Suicide Anesthesia complication Bleeding disorder Family history of premature coronary artery disease Lung disease Cancer Hypertension Stroke Social History Smoking and tobacco status: never smoked Alcohol intake: never Substance/Drug Use: never Current occupational status: disabled Physical Exam Const: COMMON NORMALS: patient oriented x3 HENMT: COMMON NORMALS: normocephalic HEAD & SCALP: normocephalic MOUTH: Normal oral and palatal mucosa present THROAT: posterior oropharynx normal and uvula midline OTHER: Small swelling of the left external nose surrounding insect sting. Neck/C-Spine: COMMON NORMALS: supple GENERAL: Yes normal visual inspection Resp: COMMON NORMALS: normal respiratory effort, No retractions, No use of accessory muscles and clear to auscultation bilaterally AUSCULTATION: clear to auscultation bilaterally Cardio: COMMON NORMALS: regular rate, regular rhythm, S1 normal heart sound present, S2 normal heart sound present, No gallops present (Cardio), No clicks present (Cardio), No murmurs present (Cardio) and Peripheral pulses 2+ throughout RATE: regular rate RHYTHM: regular rhythm HEART SOUNDS: S1 normal heart sound present and S2 normal heart sound present PERIPHERAL PULSES: Peripheral pulses 2+ throughout GI: COMMON NORMALS: Normal to inspection, nondistended, normoactive bowel sounds present, Soft to palpation, non-tender and no masses PALPATION: Yes Soft to palpation : COMMON NORMALS: Yes no CVA tenderness BLADDER/KIDNEY EXAM: Yes no CVA tenderness Back/Pelvis: COMMON NORMALS: no CVA tenderness Extremity: COMMON NORMALS: normal to inspection NARRATIVE EXTREMITY EXAM: Patient has some mild left dorsal hand tenderness around insect sting. Neuro: COMMON NORMALS: patient oriented x3 GAIT: Yes Normal gait present Skin: GENERAL SKIN EXAM: dry skin Course Vital Signs: Vital signs: Vital Signs Temperature 98.1 F 08/22/22 09:11 Pulse Rate 83 08/22/22 09:58 Respiratory Rate 18 08/22/22 09:58 Blood Pressure 112/69 08/22/22 09:58 Pulse Oximetry 94 08/22/22 09:58 Oxygen Delivery Me thod Room Air 08/22/22 09:27 MDM - Animal Bite Medical Decision Making Patient is a 62-year-old male comes to the ED with an insect sting to left nose and to left hand. Sting occurred approximately 45 minutes prior to his arrival here in the ED. He was not sure if it was a hornet or wasp but it stung the left side of his nose and stung his left hand. Denies any allergic reaction to bee or wasp stings. He has a little bit of swelling on the left side of his nose and a little bit of swelling on his left hand. He says the area where the sting occurred is a little sore and tender to the touch. Denies any other symptoms. Denies any throat tightening, lip or tongue swelling or any trouble breathing. Vitals are stable. Patient has a little external swelling of the nose and left hand around insect sting and the rest of exam is benign. Patient diagnosed with insect sting and was given at dose of IM Depo-Medrol here in the ED. He was stable for discharge home and told to continue taking his previously prescribed prednisone and Benadryl as needed. Return to ED precautions given. Follow-up with PCP in the next week for reevaluation. Patient understood and agreed with plan. Discharge Plan Discharge Patient Disposition: Home Clinical Impression: Insect sting Qualifiers: Encounter type: initial encounter Injury intent: accidental or unintentional Qualified Code(s): T63.481A - Toxic effect of venom of other arthropod, accidental (unintentional), initial encounter Condition: Stable Prescriptions: No Action allopurinol 100 mg tablet 100 mg PO QAM (DME) Diabetic Shoes with 3 sets of insoles See Rx Instructions .Route .MEDSUPPLY Qty: 1 0RF Rx Instructions: As directed by HOME (DME) AFO Spectrum Brace to the right See Rx Instructions .Route .MEDSUPPLY Qty: 1 0RF Rx Instructions: As directed BY ERIK&O lisinopril-hydrochlorothiazide 20-12.5 mg tablet 1 tab PO QAM gabapentin 100 mg capsule 100 mg PO TID metformin 500 mg tablet extended release 24 hr 500 mg PO BID Victoza 2-Kwame 0.6 mg/0.1 mL (18 mg/3 mL) pen injector 1.2 mg SUBCUT QAM tramadol 50 mg tablet 50 mg PO BID PRN (Reason: pain (scale score 7-10)) Qty: 14 0RF atorvastatin 20 mg tablet 20 mg PO BEDTIME prednisone 20 mg tablet See Rx Instructions .ROUTE .COMPLEX Rx Instructions: TAKE 1 TABLET BY MOUTH ONCE A DAY FOR FIVE DAYS THEN DECREASE TO 1/2 TABLET DAILY omeprazole 40 mg capsule,delayed release(DR/EC) 40 mg PO QAM Aspir-81 81 mg Tablet,Delayed Release (Dr/Ec) 81 mg PO DAILY PRN (Reason: Chest Pain) Lantus Solostar U-100 Insulin 100 unit/mL (3 mL) insulin pen 26 unit SUBCUT BEDTIME Jardiance 25 mg tablet 25 mg PO QAM Discharge Orders: Discharge ED (Routine); Ordered 08/22/22 Ordered By: Brady Tapia Referrals: Lauren Kaufman MD [Primary Care Provider] - Discharge Diet: Regular Discharge Activity: Increase activity as tolerated Patient Instructions: Insect Bite or Sting (ED) Activity Restrictions/Additional Instructions: Follow-up with medical provider as directed in the next 5 to 7 days for reevaluation. Continue taking all home medications as previously prescribed. Take [id number] Benadryl to help with insect sting as well. Return to the ER or your medical provider if condition worsens. Please read and understand discharge instructions. Thank you for choosing [facility] for your healthcare needs today. Please realize this is an emergency room and that we are providing you with a medical screening exam and this may not be complete and all inclusive of all the testing and or work up that you may need to determine your ailment or severity of your illness. It is very important that you follow up as instructed or that you return to the Emergency Department should you have concerns or if your condition changes or worsens in any way.. Coding Level of Care Code ED Salesperson Burial Needs for Aki Jimenez
[2022-08-22] MEDS: methylPREDNISolone (DEPO) 80 MG/ML INJ 1 mL IM (09:52)
[2022-08-22 09:58] VITALS: BP 112/69; PULSE 83; RESP 18; O2SAT 94
== END 2022-08-22 10:00 | disposition home or self-care (01) ==
PROVIDERS: Emergency Provider Physician Assistant; PCP Internal Medicine
DX: T63.481A Toxic effect of venom of other arthropod, accidental (unintentional), initial encounter (principal); Z79.82 Long term (current) use of aspirin; Z79.84 Long term (current) use of oral hypoglycemic drugs; Z79.4 Long term (current) use of insulin; I10 Essential (primary) hypertension; E11.9 Type 2 diabetes mellitus without complications
CPT/HCPCS: 96372; 99284; J1040

== ENCOUNTER → 2022-09-06 07:27 | Outpatient (BNVA) | payer MEDICARE, MEDICAID, SELFPAY | PROVIDERS: PCP Internal Medicine; Visit Provider Podiatrist Foot & Ankle Surgery | DX: M25.371 Other instability, right ankle (principal); E11.42 Type 2 diabetes mellitus with diabetic polyneuropathy; M20.41 Other hammer toe(s) (acquired), right foot; M20.42 Other hammer toe(s) (acquired), left foot; I73.9 Peripheral vascular disease, unspecified; Z79.4 Long term (current) use of insulin; Z79.84 Long term (current) use of oral hypoglycemic drugs | CPT/HCPCS: 99213 ==

== ENCOUNTER 2022-09-15 18:52 | Inpatient (IN) | payer MEDICARE, MEDICAID, SELFPAY ==
[2022-09-15 19:05] VITALS: BP 74/47; PULSE 105; RESP 16; TEMP 36.8; O2SAT 94
--- NOTE | 2022-09-15 19:20 | XRR_ITS ---
PROCEDURE INFORMATION: Exam: XR Chest Exam date and time: 09/15/2022 7:25 PM Age: 62 years old Clinical indication: Pain; Chest pressure; Additional info: Chest pain TECHNIQUE: Imaging protocol: Radiologic exam of the chest. Views: 1 view. COMPARISON: CR XR chest 1V [id number] 01/03/2016 3:59 PM FINDINGS: Lungs: Right upper lobe ground-glass airspace infiltrate. Pleural spaces: Unremarkable. No pleural effusion. No pneumothorax. Heart/Mediastinum: Cardiomegaly. Bones/joints: Unremarkable. XR/XR chest 1V portable [id number] IMPRESSION: 1. Right upper lobe ground-glass airspace infiltrate. 2. Cardiomegaly.
--- NOTE | 2022-09-15 19:21 | ECG_ITS ---
[facility] [place] [facility] Date: 2022-09-15 Pat Name: Lamberto Oliva Department: Room: Gender: Male [employer] Supervisor: : 1960 Requested By: Lexa Bravo Order Number: [id number] [place] MD: Timothy Sands M.D. Measurements Intervals [place] Rate: 104 P: 38 FL: 143 QRS: 247 QRSD: 102 T: 59 QT: 329 QTc: 435 Interpretive Statements SINUS TACHYCARDIA RIGHT VENTRICULAR HYPERTROPHY [SOME/ALL OF: PROMINENT R IN V1, LATE TRANSITION, RAD, MELITON, SSS] POSSIBLE ANTERIOR MYOCARDIAL INFARCTION , OF INDETERMINATE AGE [30 ms Q WAVE IN V3/V4, OR R < 0.2 mV IN V4] No previous ECG available for comparison Electronically Signed On 09-17-2022 9:28:21 CDT by Timothy Sands M.D. [email or web address]
[2022-09-15 19:37] VITALS: BP 104/60; PULSE 95; RESP 27; O2SAT 93
[2022-09-15] MEDS: sodium chloride 0.9% 1,000 ML 999 ML IV ×2 (19:38→21:00)
--- NOTE | 2022-09-15 19:43 | W.ED.GENADLT ---
HPI - General Adult General: Chief complaint: General Medical Stated complaint: Dizzy Time Seen by Provider: 09/15/22 19:20 History of Present Illness: To the ER with complaints of feeling dizzy, little lightheaded like he got a pass out for the last couple days. Patient denies any chest pain nausea vomiting diarrhea any new medicines or recent head trauma. Patient states that it accept the room is spinning. It is worse when he gets up. Patient has not had this before. Patient is on blood pressure medicine as well as Neurontin. Review of Systems General: Reports: 10 or more systems reviewed and unremarkable except in HPI and below PFSH ED PFSH: Medical History (Updated 09/15/22 @ 21:37 by Lexa Bravo DO) History of amputation of great toe Hypertension Onycholysis of toenail Polyneuropathy due to type 2 diabetes mellitus Family History Mother Diabetes Denies family history of CAD (coronary artery disease) Clotting disorder Dementia Hyperlipidemia Psychiatric illness Chronic kidney disease (CKD) Suicide Anesthesia complication Bleeding disorder Family history of premature coronary artery disease Lung disease Cancer Hypertension Stroke Social History Smoking and tobacco status: never smoked Alcohol intake: never Substance/Drug Use: never Current occupational status: disabled Physical Exam Const: COMMON NORMALS: no acute distress, average body habitus, patient oriented x3, no limitations, healthy appearing, alert and well nourished HENMT: COMMON NORMALS: normocephalic, atraumatic, hearing grossly normal bilaterally, external ears normal, Normal external nose present and moist oral mucous membranes HEAD & SCALP: normocephalic and atraumatic NOSE: Normal external nose present EXTERNAL EAR: Yes external ears normal Eye: COMMON NORMALS: Equal, round and reactive pupils present, EOMs intact bilaterally, conjunctivae normal and no scleral icterus CONJUNCTIVA: Yes conjunctivae normal PUPIL: Yes Equal, round and reactive pupils present Neck/C-Spine: COMMON NORMALS: full ROM, no lymphadenopathy, supple, no meningeal signs, no JVD and Thyroid normal THYROID: Thyroid normal Chest: COMMONS NORMALS: normal inspection of the chest and normal palpation of entire chest wall Resp: COMMON NORMALS: normal respiratory effort, No retractions, No use of accessory muscles and clear to auscultation bilaterally AUSCULTATION: clear to auscultation bilaterally Cardio: COMMON NORMALS: no JVD, regular rate, regular rhythm, S1 normal heart sound present, S2 normal heart sound present, No gallops present (Cardio), No clicks present (Cardio) and No murmurs present (Cardio) RATE: regular rate RHYTHM: regular rhythm HEART SOUNDS: S1 normal heart sound present and S2 normal heart sound present GI: COMMON NORMALS: Normal to inspection, nondistended, normoactive bowel sounds present, Soft to palpation, non-tender, No hepatosplenomegaly present and no masses PALPATION: Yes Soft to palpation and Yes No hepatosplenomegaly present : COMMON NORMALS: Yes no CVA tenderness BLADDER/KIDNEY EXAM: Yes no CVA tenderness Back/Pelvis: COMMON NORMALS: no CVA tenderness Neuro: COMMON NORMALS: patient oriented x3 SENSORIUM/ORIENTATION: Yes alert MENINGEAL SIGNS: Yes no meningeal signs Course Vital Signs: Vital signs: Vital Signs Temperature 98.3 F 09/15/22 19:05 Pulse Rate 95 09/15/22 19:37 Respiratory Rate 27 H 09/15/22 19:37 Blood Pressure 104/60 09/15/22 19:37 Pulse Oximetry 93 09/15/22 19:37 Oxygen Delivery Me thod Room Air 09/15/22 19:37 [facility] - General Adult Medical Decision Making Present to the ICU with complaints of lightheaded dizziness factors, pass out. Patient did require 2 L of fluid and Trendelenburg to get his pressure up from 74/47 to 104/60 and his heart rate down from 10 5-95. Patient did have a increase in his BUN/creatinine to 42 and 1.9 as well as a increased white count of 17.5 and a sugar of approximately 470 with a sodium of 123, chest x-ray and CT both showed largely right upper lobe airspace infiltrates. Patient was given Zofran IV, 10 units of normal insulin and [address] Fuentes was consulted and he agreed for inpatient treatment for further evaluation. He did suggest we put the patient in the ICU because of his elevated anion gap. Differential Diagnosis Dizziness, vertigo, hypotension, orthostatics, or medication Medical Records I reviewed the patient's medical records. Lab Data I reviewed the patient's lab results. 09/15/22 19:32 09/15/22 19:32 Radiology Impressions Chest X-Ray 09/15/22 19:20 IMPRESSION: 1. Right upper lobe ground-glass airspace infiltrate. 2. Cardiomegaly. Chest CT 09/15/22 19:52 IMPRESSION: 1. Patchy bilateral largely right upper lobe airspace infiltrates. 2. Scattered prominent subcentimeter short axis nonspecific mediastinal lymph nodes. 3. Hepatic steatosis. 4. Emphysematous changes. Laboratory Results WBC 17.5 10^3/uL (4.0-10.0) H 09/15/22 19:32 RBC 4.74 10^6/uL (4.1-5.3) 09/15/22 19:32 Hgb 14.7 g/dL (11.7-16.6) 09/15/22 19:32 Hct 44.1 % (42.0-52.0) 09/15/22 19:32 MCV 93.0 fl (80-94) 09/15/22 19:32 MCH 31.0 pg (28.0-34.0) 09/15/22 19:32 MCHC 33.3 g/dL (30.0-36.0) 09/15/22 19:32 RDW 13.1 % (12.1-15.1) 09/15/22 19:32 Plt Count 321 10^3/cmm (130-400) 09/15/22 19:32 MPV 10.6 fL (7.4-10.4) H 09/15/22 19:32 Neut % (Auto) 84.4 % 09/15/22 19:32 Lymph % (Auto) 4.3 % 09/15/22 19:32 [place] % (Auto) 5.4 % 09/15/22 19:32 Eos % (Auto) 0.3 % 09/15/22 19:32 Baso % (Auto) 0.6 % 09/15/22 19:32 Neut # (Auto) 14.79 10^3/uL (1.8-7.7) H 09/15/22 19:32 Lymph # (Auto) 0.8 10^3/uL (0.8-4.8) 09/15/22 19:32 [place] # (Auto) 0.9 10^3/uL (0.2-0.9) 09/15/22 19:32 Eos # (Auto) 0.1 10^3/uL (0.0-0.8) 09/15/22 19:32 Baso # (Auto) 0.1 10^3/uL (0.0-0.1) 09/15/22 19:32 Nucleated RBC % (auto) 0 % 09/15/22 19:32 Nucleated RBCs # 0.0 /100WBC 09/15/22 19:32 Sodium 123 mmol/L (136-145) L 09/15/22 19:32 Potassium 4.9 mmol/L (3.5-5.1) 09/15/22 19:32 Chloride 87 mmol/L (98-107) L 09/15/22 19:32 Carbon Dioxide 17 mmol/L (22-29) L 09/15/22 19:32 Anion Gap 23.9 (5-19) H 09/15/22 19:32 BUN 42 mg/dL (8-23) H 09/15/22 19:32 Creatinine 1.9 mg/dL (0.7-1.2) H 09/15/22 19:32 GFR Calculation 36.0 mL/min (90-130) L 09/15/22 19:32 Glucose 472 mg/dL (65-115) H 09/15/22 19:32 POC Glucose 425 mg/dL (70-110) H 09/15/22 21:00 Calculated Osmolality 287 mOsm/kg (285-295) 09/15/22 19:32 Lactic Acid 2.0 mmol/L (0.5-2.2) 09/15/22 19:32 Calcium 9.5 mg/dL (8.5-10.5) 09/15/22 19:32 Magnesium 2.5 mg/dL (1.7-2.3) H 09/15/22 19:32 Total Bilirubin 1.0 mg/dL (0.15-1.2) 09/15/22 19:32 AST 14 U/L (0-40) 09/15/22 19:32 ALT 21 U/L (0-41) 09/15/22 19:32 Alkaline Phosphatase 101 U/L (40-130) 09/15/22 19:32 Troponin T Baseline 25 ng/L (0-15) H 09/15/22 19:32 NT-Pro-B Natriuret Pep 181 pg/mL (0-125) H 09/15/22 19:32 Total Protein 7.7 g/dL (6.6-8.7) 09/15/22 19:32 Albumin 3.1 g/dL (3.5-5.2) L 09/15/22 19:32 Globulin 4.6 g/dL (1.3-4.6) 09/15/22 19:32 Procalcitonin 0.83 ng/mL (0-0.5) H 09/15/22 19:32 Urine Color Light yellow (Yellow) 09/15/22 20:02 Urine Appearance Clear (CLEAR) 09/15/22 20:02 Urine pH 5 (5-7) 09/15/22 20:02 Ur Specific [place] 1.005 (1.005-1.030) 09/15/22 20:02 Urine Protein Neg (Negative) 09/15/22 20:02 Urine Glucose (UA) 4+ (Normal) H 09/15/22 20:02 Urine Ketones 1+ (Negative) H 09/15/22 20:02 Urine Blood Neg (Negative) 09/15/22 20:02 Urine Nitrate Negative (Negative) 09/15/22 20:02 Urine Bilirubin Neg (Negative) 09/15/22 20:02 Urine Urobilinogen Neg mg/dL (Negative) 09/15/22 20:02 Ur Leukocyte Esterase Negative (Negative) 09/15/22 20:02 Serum Ketones Negative (Negative) 09/15/22 19:32 EKG Data EKG 1: I personally reviewed and interpreted this EKG as follows: EKG interpretation date: 09/15/22 EKG interpretation time: 19:08 Prior EKG tracings: not available for review Interpretation: EKG shows sinus tachycardia ventricular rate 104 beats a minute, MD interval 143, QRS duration 102, QTc of 390, right ventricular hypertrophy, possible old PA with Q waves in V3 and V4. Computer generated interpretation: Chest X-Ray 09/15/22 19:20 IMPRESSION: 1. Right upper lobe ground-glass airspace infiltrate. 2. Cardiomegaly. Chest CT 09/15/22 19:52 IMPRESSION: 1. Patchy bilateral largely right upper lobe airspace infiltrates. 2. Scattered prominent subcentimeter short axis nonspecific mediastinal lymph nodes. 3. Hepatic steatosis. 4. Emphysematous changes. Discharge Plan Discharge Patient Disposition: Admitted As Inpatient Clinical Impression: Right upper lobe pneumonia, Acute hyponatremia, Acute kidney insufficiency, Hyperglycemia due to diabetes mellitus Condition: Stable Prescriptions: No Action allopurinol 100 mg tablet 100 mg PO QAM (DME) Diabetic Shoes with 3 sets of insoles See Rx Instructions .Route .MEDSUPPLY Qty: 1 0RF Rx Instructions: As directed by HOME (DME) AFO Spectrum Brace to the right See Rx Instructions .Route .MEDSUPPLY Qty: 1 0RF Rx Instructions: As directed BY ERIK&O lisinopril-hydrochlorothiazide 20-12.5 mg tablet 1 tab PO QAM gabapentin 100 mg capsule 100 mg PO TID metformin 500 mg tablet extended release 24 hr 500 mg PO BID Victoza 2-Kwame 0.6 mg/0.1 mL (18 mg/3 mL) pen injector 1.2 mg SUBCUT QAM tramadol 50 mg tablet 50 mg PO BID PRN (Reason: pain (scale score 7-10)) Qty: 14 0RF atorvastatin 20 mg tablet 20 mg PO BEDTIME prednisone 20 mg tablet See Rx Instructions .ROUTE .COMPLEX Rx Instructions: TAKE 1 TABLET BY MOUTH ONCE A DAY FOR FIVE DAYS THEN DECREASE TO 1/2 TABLET DAILY omeprazole 40 mg capsule,delayed release(DR/EC) 40 mg PO QAM Aspir-81 81 mg Tablet,Delayed Release (Dr/Ec) 81 mg PO DAILY PRN (Reason: Chest Pain) Lantus Solostar U-100 Insulin 100 unit/mL (3 mL) insulin pen 26 unit SUBCUT BEDTIME Jardiance 25 mg tablet 25 mg PO QAM Referrals: Lauren Kaufman MD [Primary Care Provider] - Coding Level of Care Code ED Pharmacy Associate for Aki Jimenez
[2022-09-15 19:46] LABS: Basophils # 0.1 10^3/uL (0.0-0.1); Basophils % 0.6 %; Eosinophils # 0.1 10^3/uL (0.0-0.8); Eosinophils % 0.3 %; Hematocrit 44.1 % (42.0-52.0); Hemoglobin 14.7 g/dL (11.7-16.6); Lymphocytes # 0.8 10^3/uL (0.8-4.8); Lymphocytes % 4.3 %; Mean Corpuscular HGB Conc 33.3 g/dL (30.0-36.0); Mean Platelet Volume 10.6 fL (7.4-10.4); Monocytes # 0.9 10^3/uL (0.2-0.9); Monocytes % 5.4 %; Neutrophils # 14.79 10^3/uL (1.8-7.7); Neutrophils % 84.4 %; Nucleated Red Blood Cells % 0 %; Platelet Count 321 10^3/cmm (130-400); Red Blood Count 4.74 10^6/uL (4.1-5.3); Red Cell Distribution Width 13.1 % (12.1-15.1); White Blood Count 17.5 10^3/uL (4.0-10.0)
--- NOTE | 2022-09-15 19:52 | CTR_ITS ---
PROCEDURE INFORMATION: Exam: CT Chest With Contrast; Diagnostic Exam date and time: 09/15/2022 8:44 PM Age: 62 years old Clinical indication: Other: Pneumonia; Additional info: Pneumonia, leukocytosis, hypotension TECHNIQUE: Imaging protocol: Diagnostic computed tomography of the chest with contrast. Radiation optimization: All CT scans at this facility use at least one of these dose optimization techniques: automated exposure control; mA and/or kV adjustment per patient size (includes targeted exams where dose is matched to clinical indication); or iterative reconstruction. Contrast material: OMNI 350; Contrast volume: 100 ml; Contrast route: INTRAVENOUS (IV); REPORTING DATA: Count of CT and Cardiac NM exams in prior 12 months: This patient has received 0 known CTs and 0 known cardiac nuclear medicine studies in the 12 months prior to the current study. COMPARISON: CR (CHEST, ) 09/15/2022 7:25 PM RADIATION DOSE METRICS: Total DLP (mGy-cm): 986.54 FINDINGS: Lungs: Patchy bilateral largely right upper lobe airspace infiltrates. Emphysematous changes. Pleural spaces: Unremarkable. No pneumothorax. No pleural effusion. Heart: Unremarkable. No cardiomegaly. No pericardial effusion. Lymph nodes: Scattered prominent subcentimeter short axis nonspecific mediastinal lymph nodes. Vasculature: Unremarkable. No aortic aneurysm. Liver: Hepatic steatosis. Bones/joints: Unremarkable. No acute fracture. Soft tissues: Unremarkable. CT/CT chest w con* [id number] IMPRESSION: 1. Patchy bilateral largely right upper lobe airspace infiltrates. 2. Scattered prominent subcentimeter short axis nonspecific mediastinal lymph nodes. 3. Hepatic steatosis. 4. Emphysematous changes.
[2022-09-15 20:09] LABS: Troponin(5th) Baseline 25 ng/L (0-15)
[2022-09-15 20:13] LABS: Add Urine Microscopic? NO; Charge for UA Resulting for Rev
[2022-09-15 20:16] LABS: Bilirubin Urine Neg (Negative); Blood Urine Neg (Negative); Glucose Urine UA 4+ (Normal); Ketones Urine 1+ (Negative); Nitrate Urine Negative (Negative); Protein Urine Neg (Negative); Specific Gravity, Urine 1.005 (1.005-1.030); Urine Appearance Clear (CLEAR); Urine Color Light yellow (Yellow); pH Urine 5 (5-7)
[2022-09-15 20:17] LABS: Leukocyte Esterase Urine Negative (Negative); Urobilinogen Urine Neg (Negative)
[2022-09-15 20:17] LABS: Alanine Aminotransferase 21 U/L (0-41); Albumin Level 3.1 g/dL (3.5-5.2); Alkaline Phosphatase 101 U/L (40-130); Anion Gap 23.9 (5-19); Aspartate Amino Transferase 14 U/L (0-40); Blood Urea Nitrogen 42 mg/dL (8-23); Calcium 9.5 mg/dL (8.5-10.5); Carbon Dioxide 17 mmol/L (22-29); Chloride 87 mmol/L (98-107); Globulin 4.6 g/dL (1.3-4.6); Glucose 472 mg/dL (65-115); Magnesium 2.5 mg/dL (1.7-2.3); NT Pro B Type Natriuretic Pept 181 pg/mL (0-125); Osmolality Calculated 287 mOsm/kg (285-295); Potassium 4.9 mmol/L (3.5-5.1); Sodium 123 mmol/L (136-145); Total Protein 7.7 g/dL (6.6-8.7)
[2022-09-15 20:25] LABS: Procalcitonin 0.83 ng/mL (0-0.5)
[2022-09-15] MEDS: iohexol 350 mg/mL 500 mL Btl (per mL) IV (20:30)
[2022-09-15] MEDS: insulin regular-human 100 units/1 mL 10 UNIT IVP (21:01)
[2022-09-15 21:02] LABS: Ketone (Acetest) Serum Negative (Negative)
--- NOTE | 2022-09-15 21:02 | PC.NURSE ---
This RN verified insulin with Herlinda DUNLAP before administration.
[2022-09-15 21:07] LABS: Glucose Point of Care 425 mg/dL (70-110)
[2022-09-15] MEDS: piperacillin-tazobactam 3.375 GM in sodium chloride 0.9% (plus) 50 ML IV (21:24)
--- NOTE | 2022-09-15 21:33 | PM.HP ---
Providers/Chief Complaint Primary Care Provider: Lauren Kaufman MD Chief Complaint: Dizzy History of Present Illness Lamberto Oliva is a 62 year old male with history of type 2 diabetes peripheral vascular disease, neuropathy, presented today with chief complaint of feeling dizzy and lightheaded. Stating that he lives alone, he has not missed any of his medications, for last 2 to 3 days he has been experiencing chills with generalized weakness and fatigue he has not noticed fever, he is endorsing chest pain on coughing only, no active chest pain at the time of my evaluation, endorsing loose stools, does not use oxygen at home. Patient is active, drove himself to the hospital. In the ER he was diagnosed with sepsis related to pneumonia, hyponatremia, ANTHONY, hyperglycemia without ketosis, hypotension responsive to IV fluids Review of Systems Narrative: Review of symptoms endorsing fatigue and lethargy no active Chills No active chest pain No active shortness of breath Positive bone discomfort Positive skin ulcers Lower extremity wound Positive dizziness Back pain No active diarrhea No extremity weakness Hyperglycemia Medications/Allergies Home Medications Medication Instructions Recorded Confirmed Last Taken Type gabapentin 100 mg capsule 100 mg PO TID 08/21/19 09/06/22 08/22/22 History liraglutide 0.6 mg/0.1 mL (18 mg/3 1.2 mg SUBCUT QAM 08/21/19 09/06/22 08/22/22 History mL) subcutaneous pen injector (Victoza 2-Kwame) lisinopril 20 1 tab PO QAM 08/21/19 09/06/22 08/22/22 History mg-hydrochlorothiazide 12.5 mg tablet metformin 500 mg tablet,extended 500 mg PO BID 08/21/19 09/06/22 08/22/22 History release 24 hr AFO Spectrum Brace to the right #1 ea 10/09/21 09/06/22 Unknown Rx Diabetic Shoes with 3 sets of #1 ea 04/08/22 09/06/22 Unknown Rx insoles allopurinol 100 mg tablet 100 mg PO QAM 05/24/22 09/06/22 08/22/22 History tramadol 50 mg tablet 50 mg PO BID PRN pain (scale score 07/18/22 09/06/22 Unknown Rx 7-10) #14 tabs aspirin 81 mg tablet,delayed 81 mg PO DAILY PRN Chest Pain 08/22/22 09/06/22 Unknown History release atorvastatin 20 mg tablet 20 mg PO BEDTIME 08/22/22 09/06/22 08/21/22 History empagliflozin 25 mg tablet 25 mg PO QAM 08/22/22 09/06/22 08/22/22 History (Jardiance) insulin glargine 100 unit/mL (3 26 unit SUBCUT BEDTIME 08/22/22 09/06/22 08/21/22 History mL) subcutaneous pen (Lantus Solostar U-100 Insulin) omeprazole 40 mg capsule,delayed 40 mg PO QAM 08/22/22 09/06/22 08/22/22 History release prednisone 20 mg tablet See Rx Instructions .Route .COMPLEX 08/22/22 09/06/22 08/22/22 History 10 mg Allergies Allergy/AdvReac Type Severity Reaction Status Date / Time No Known Allergies Allergy Verified 09/06/22 07:36 PFSH Acute PFSH: Medical History History of amputation of great toe Hypertension Onycholysis of toenail Polyneuropathy due to type 2 diabetes mellitus Family History Mother Diabetes Denies family history of CAD (coronary artery disease) Clotting disorder Dementia Hyperlipidemia Psychiatric illness Chronic kidney disease (CKD) Suicide Anesthesia complication Bleeding disorder Family history of premature coronary artery disease Lung disease Cancer Hypertension Stroke Social History Smoking and tobacco status: never smoked Alcohol intake: never Substance/Drug Use: never Current occupational status: disabled Vitals/I&O/Wt Last Vital Signs Temp 98.3 F 09/15/22 19:05 Pulse 95 09/15/22 19:37 Resp 27 H 09/15/22 19:37 BP 104/60 09/15/22 19:37 Pulse Ox 93 09/15/22 19:37 O2 Del Method Room Air 09/15/22 19:37 09/15/22 09/15/22 09/15/22 06:59 14:59 22:59 Intake Total 1000 / 1000 Balance 1000 / 1000 Physical Exam Narrative: Septic exam No encephalopathy No skin mottling Cap refill less than 3 seconds S1, S2 sinus rhythm Currently on room air Nonfocal neuroexam GCS 15 Abdomen soft Diabetic foot ulcer with good granulation tissue Pleasant and cooperative Appears stated age Data 09/15/22 19:32 09/15/22 19:32 Micro: Microbiology 09/15/22 20:08 Blood Culture - Preliminary Blood SPECIMEN COLLECTED 09/15/22 20:08 Blood Culture - Preliminary Blood SPECIMEN COLLECTED A&P Assessment and plan (1) Right upper lobe pneumonia: Qualifiers: Pneumonia type: due to unspecified organism Qualified Code(s): J18.9 - Pneumonia, unspecified organism (2) Acute hyponatremia: (3) Acute kidney insufficiency: (4) Hyperglycemia due to diabetes mellitus: (5) Diabetic peripheral neuropathy associated with type 2 diabetes mellitus: (6) PVD (peripheral vascular disease): (7) Sepsis: Plan Sepsis related to pneumonia qSOFA score 2 for respiratory rate above 22 and systolic blood pressure below 100 SIRS score 3 Community-acquired pneumonia Criteria met with tachypnea tachycardia leukocytosis endorgan damage of high creatinine, lactic acid is normal Responsive to IV fluids In the ER received 2 L I do not have his actual body weight we will give him extra 500 mL bolus His weight has not been calculated in the ER He has been given Zosyn in the ER, blood cultures taken, I will start patient on ceftriaxone and azithromycin Requested sputum culture, MRSA nares Urine antigens Hyperglycemia without DKA I will give him another 500 mL bolus Continue IV fluids overnight I will keep him n.p.o. until his anion gap closes Will give him Lantus, check A1c level ANTHONY is related to sepsis and nephrotoxic agents Hold lisinopril and hydrochlorothiazide Anticipating improvement with IV fluid hydration Hypotension with underlying sepsis No signs of septic shock Responsive to IV fluids History of peripheral vascular disease with diabetic peripheral neuropathy follows up with podiatry outpatient Patient uses special boots as well Hyponatremia with hyperglycemia Corrected sodium is at 130 Continue IV fluids overnight Discontinue hydrochlorothiazide High D-dimer, not a candidate of CTA chest, it could be related to underlying sepsis However if creatinine improves he should go for CTA chest Patient is not requiring oxygen he is not tachycardic Request venous Doppler Pleuritic chest pain related to pneumonia no active chest pain at the time of my evaluation, troponin trending down EKG without significant ischemic changes Full code N.p.o. 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
[2022-09-15 21:45] LABS: Glucose Point of Care 367 mg/dL (70-110)
--- NOTE | 2022-09-15 21:50 | ECG_ITS ---
[facility] Test Date: 2022-09-15 Pat Name: Lamberto Oliva Department: Room: Gender: Male Manager New Product: : 1960 Requested By: Lexa Bravo Order Number: [id number] aKty MD: Timothy Sands M.D. Measurements Intervals [place] Rate: 92 P: 42 WA: 157 QRS: -65 QRSD: 104 T: 61 QT: 355 QTc: 439 Interpretive Statements SINUS RHYTHM LEFT AXIS DEVIATION [QRS AXIS < -30] LOW QRS VOLTAGE IN EXTREMITY LEADS [QRS DEFLECTION < 0.5 mV IN LIMB LEADS] POSSIBLE ANTERIOR MYOCARDIAL INFARCTION , OF INDETERMINATE AGE [30 ms Q WAVE IN V3/V4, OR R < 0.2 mV IN V4] Compared to ECG 09/15/2022 19:08:47 Left-axis deviation now present Low QRS voltage now present Sinus tachycardia no longer present Right ventricular hypertrophy no longer present Atrial abnormality no longer present Myocardial infarct finding still present Electronically Signed On 09-17-2022 9:31:54 CDT by Timothy Sands M.D. [id number]
[2022-09-15 21:59] LABS: D Dimer 1.14 ug/mIFEU (0-0.59)
[2022-09-15 22:14] VITALS: BP 85/52; PULSE 90; RESP 29; O2SAT 97
[2022-09-15 22:20] VITALS: PULSE 89; O2SAT 94
[2022-09-15 22:38] LABS: Estmated Average Glucose 301; Hemoglobin A1C 12.1 % (4.0-6.0)
[2022-09-15] MEDS: lactated ringers 1,000 ML 999 ML IV (22:54)
[2022-09-15] MEDS: heparin 5,000 unit/mL INJ 1 mL 5000 UNIT SUBCUT (22:58)
[2022-09-15] MEDS: sodium chloride 0.9% 1,000 ML 100 ML IV (22:59)
[2022-09-15 23:48] LABS: Thyroid Stimulating Hormone 0.61 uIU/mL (0.27-4.20); Vitamin B12 506 pg/mL (232-1245)
[2022-09-16] VITALS (58 sets, daily range): BP systolic 98–150; BP diastolic 59–78; PULSE 77–94; RESP 16–25; TEMP 36.6–37.7; O2SAT 90–98
[2022-09-16] MEDS: insulin glargine 100 units/1 mL 30 UNIT SUBCUT ×2 (00:09→21:18)
--- NOTE | 2022-09-16 01:21 | ECG_ITS ---
[facility] Test Date: 2022-09-16 Pat Name: Lamberto Oliva Department: Room: ICU04 Gender: Male Investigations Director: : 1960 Requested By: Lexa Bravo Order Number: [id number] [place] MD: Timothy Sands M.D. Measurements Intervals [place] Rate: 78 P: 44 CO: 159 QRS: 31 QRSD: 105 T: 49 QT: 387 QTc: 442 Interpretive Statements SINUS RHYTHM LOW QRS VOLTAGE IN EXTREMITY LEADS [QRS DEFLECTION < 0.5 mV IN LIMB LEADS] POSSIBLE ANTERIOR MYOCARDIAL INFARCTION , OF INDETERMINATE AGE [30 ms Q WAVE IN V3/V4, OR R < 0.2 mV IN V4] Compared to ECG 09/15/2022 21:50:40 Left-axis deviation no longer present Myocardial infarct finding still present Electronically Signed On 09-17-2022 9:31:48 CDT by Timohty Sands M.D. [id number]
[2022-09-16 01:50] LABS: Hematocrit 37.6 % (42.0-52.0); Hemoglobin 12.7 g/dL (11.7-16.6); Mean Corpuscular HGB Conc 33.8 g/dL (30.0-36.0); Mean Corpuscular Hemoglobin 31.1 pg (28.0-34.0); Mean Corpuscular Volume 91.9 fl (80-94); Mean Platelet Volume 10.3 fL (7.4-10.4); Platelet Count 275 10^3/cmm (130-400); Red Blood Count 4.09 10^6/uL (4.1-5.3); White Blood Count 13.6 10^3/uL (4.0-10.0)
[2022-09-16 01:57] LABS: Lactic Sepsis W/Reflex 1.1 mmol/L (0.5-2.2)
[2022-09-16 02:08] LABS: Troponin 5 6HR 20.21 ng/L (0-15); Troponin 5 6HR Delta -4.79 ng/L (0-12)
[2022-09-16 02:09] LABS: Anion Gap 16.5 (5-19); Blood Urea Nitrogen 39 mg/dL (8-23); C Reactive Protein 170.2 mg/L (0.0-4.9); Calcium 8.1 mg/dL (8.5-10.5); Carbon Dioxide 20 mmol/L (22-29); Chloride 101 mmol/L (98-107); Glomerular Filtration Rate 43.9 mL/min (90-130); Glucose 261 mg/dL (65-115); Magnesium 2.3 mg/dL (1.7-2.3); Osmolality Calculated 294 mOsm/kg (285-295); Potassium 4.5 mmol/L (3.5-5.1); Sodium 133 mmol/L (136-145)
[2022-09-16 02:17] LABS: Cortisol Random 11.99 ug/dL (2.47-19.5)
[2022-09-16 02:33] LABS: Slide Review Slide Review Perform
[2022-09-16 02:37] LABS: Absolute Eosinophils 0.2 10^3/cmm (0.0-0.7); Absolute Segmented Neutrophil 10.9 10/cmm (1.6-7.1); Eosinophils 2 %; Lymphocytes 8 %; Monocytes Absolute 0.8 10^3/cmm (0.1-0.6); Platelet Estimate Normal (Normal); Segmented Neutrophils 80 %; Total Cells Counted 100 (0-100)
[2022-09-16] MEDS: pantoprazole DR 40 mg Tablet PO (05:09)
[2022-09-16] MEDS: allopurinol 100 mg Tablet PO (05:10)
[2022-09-16 08:01] LABS: Glucose Point of Care 148 mg/dL (70-110)
[2022-09-16] MEDS: sennosides-docusate Tablet 1 TAB PO (08:01)
[2022-09-16] MEDS: cefTRIAXone 1,000 MG in sodium chloride 0.9% (plus) 50 ML 100 MG IV (08:01)
[2022-09-16] MEDS: enoxaparin 80 mg/0.8 mL Syringe 70 MG SUBCUT (08:01)
[2022-09-16] MEDS: azithromycin 250 mg Tablet 500 MG PO (08:01)
[2022-09-16] MEDS: sodium chloride 0.9% 1,000 ML 100 ML IV ×2 (08:02→20:05)
[2022-09-16] MEDS: insulin lispro 100 unit/1 mL SUBCUT ×3 (08:06→18:44)
--- NOTE | 2022-09-16 10:57 | USCV_ITS ---
Lamberto Oliva Age: 62 Gender: M : 1960 Exam Date: 09/16/2022 13:58 Ordering Phys: Chun Law MD Technologist: DARRICK [place] [facility] [place]ication: HTN, SEPTIC SHOCK BP: 996 / HR: 86 Rhythm: Sinus Technical Quality: Adequate MEASUREMENTS (Male / Female) Normal Values 2D ECHO LVOT Diameter 2.0 cm LV Ejection Fraction MOD 2C 64.3 % LV Ejection Fraction 2C AL 65.4 % LA Diameter 2.8 cm LA Width 2.7 cm LA Height 3.4 cm RA Width 3.1 cm RA Height 3.4 cm Aorta at Sinotubular Diameter 2.6 cm M-MODE Aortic Annulus Diameter 2.8 cm LA Ao Ratio MM 1.0 MV E Point Septal Separation 0.9 cm DOPPLER AV Peak Velocity 116.0 cm/s LVOT Peak Velocity 92.0 cm/s AV Area Cont Eq vti 2.5 cm squared AV Area Cont Eq pk 2.6 cm squared MV Peak Velocity 79.0 cm/s MV Area PHT 2.6 cm squared Mitral E to A Ratio 0.9 MV E' Velocity 39.5 cm/s Mitral E to MV E' Ratio 9.1 Mitral E to LV E' Lateral Ratio 9.1 Mitral E to LV E' Septal Ratio 9.3 TR Peak Velocity 165.9 cm/s TR Peak Gradient 11.0 mmHg TR Mean Velocity 141.0 cm/s TR Mean Gradient 8.4 mmHg TR Velocity Time Integral 41.7 cm TV Peak E Velocity 40.0 cm/s Right Atrial Pressure 8.0 mmHg Pulmonary Artery Systolic Pressu 19.0 mmHg PV Peak Velocity 139.0 cm/s RV Acceleration Time 0.1 s RV Ejection Time 0.4 s RV AcT/ET 0.1 FINDINGS Left Ventricle Left ventricle is normal size. LV systolic function is normal with EF of 55 to 60%. No regional wall motion abnormalities are seen. Right Ventricle Normal in size and function Right Atrium Normal in size Left Atrium Normal in size Mitral Valve Structurally normal mitral valve. Trace mitral regurgitation. Aortic Valve Structurally normal aortic valve. No significant stenosis or regurgitation. Tricuspid Valve Mild tricuspid regurgitation. Insufficient TR jet to calculate RVSP Pulmonic Valve Not well visualized Pericardium Normal Aorta Normal in size IVC Appears to be normal CONCLUSIONS LV systolic function is normal with EF 55 to 60%. Trace mitral regurgitation Mild tricuspid regurgitation No comparison studies are available. Timothy Sands MD (Electronically Signed) Final Date: 16 September 2022 18:44 S
[2022-09-16 11:45] LABS: Glucose Point of Care 240 mg/dL (70-110)
[2022-09-16 12:02] LABS: Iron 23 ug/dL (59-158); Percent Saturation 12.9 % (20-50); Total Iron Binding Capacity 178 mcg/dl; Unsaturated Iron Binding 155 ug/dL (112-347)
[2022-09-16] MEDS: ipratropium 0.5 mg/2.5 mL Neb INHALATION ×2 (13:46→19:49)
[2022-09-16] MEDS: levalbuterol 0.63 mg/3 mL Neb INHALATION ×2 (13:48→19:50)
--- NOTE | 2022-09-16 14:36 | PM.PN ---
Subjective Subjective: Admitted overnight. H&P and labs appreciated. On examination patient lying comfortably in bed, eyes closed. Able to have complete conversation but does not open his eyes. Denies any nausea, vomiting, headache, dizziness. Breathing well on room air. Saturating more than 95%. Blood pressure stable. On softer side with a mean artery pressure yesterday on admission. Blood work appreciated Vitals/I&O/Wt Last Vital Signs Temp 98.3 F 09/15/22 19:05 Pulse 86 09/16/22 14:00 Resp 16 09/16/22 13:49 BP 85/52 09/15/22 22:14 Pulse Ox 94 09/16/22 13:49 O2 Del Method Room Air 09/16/22 13:49 09/15/22 09/16/22 09/16/22 22:59 06:59 14:59 Intake Total 2049 / 2049 1000 / 3050 1195 / 1195 Output Total 900 / 900 300 / 300 Balance 2049 100 / 2150 895 / 895 Weight last 48 hrs Weight 105.687 kg Physical Exam Narrative: General: No acute distress, AO x3 HEENT: PERRLA, pupils bilaterally equal and reactive Chest: Normal vesicular breath sounds, right upper and middle lobe rhonchi with coarse crackles, equal good air entry bilaterally CVS: S1-S2 regular, no murmurs, no tachycardia, no gallops, no rubs Abdomen: Soft, nontender, no organomegaly, bowel sounds present Neuro: No focal deficits, no facial deformity, AO x3, power 5/5 in all limbs Data 09/16/22 01:37 09/16/22 01:37 Micro: Microbiology 09/15/22 22:45 MRSA Culture - Final Nose 09/15/22 22:45 Bacterial Antigens - Final Urine,Voided 09/15/22 22:45 Legionella Urinary Antigen - Final Urine,Voided 09/15/22 20:08 Blood Culture - Preliminary Blood SPECIMEN COLLECTED 09/15/22 20:08 Blood Culture - Preliminary Blood SPECIMEN COLLECTED A&P Assessment and plan (1) Sepsis: (2) Right upper lobe pneumonia: Qualifiers: Pneumonia type: due to unspecified organism Qualified Code(s): J18.9 - Pneumonia, unspecified organism (3) Acute hyponatremia: (4) Acute kidney insufficiency: (5) Hyperglycemia due to diabetes mellitus: (6) Diabetic peripheral neuropathy associated with type 2 diabetes mellitus: (7) PVD (peripheral vascular disease): Plan Sepsis related to pneumonia: Present on admission. Ruled in with tachycardia, tachypnea, hypotension, leukocytosis with endorgan damage in kidneys. Sign off infection lungs with concerns for right upper lobe pneumonia. Follow-up blood culture. Sputum culture awaited. Urine Legionella, bacterial antigen pending. For now continue with IV ceftriaxone and oral azithromycin. Keep me on artery pressure 65, saturation over 92%. Type 2 diabetes mellitus with hyperglycemia without DKA: Blood sugars better controlled. Continue with insulin sliding scale before meals and at bedtime at moderate dose protocol. A1c found to be more than 12. Continue with Lantus 30 units at bedtime. Will uptitrate as per blood sugar levels. ANTHONY: Creatinine trending down to 1.6. Seems to be at baseline at 1.5. With uremia. Most likely in setting of sepsis along with nephrotoxic drugs including hydrochlorothiazide and lisinopril. Medical decompression done for nephrotoxic drugs. Monitor BMP daily for now. IV hydration with normal saline at 100 cc/h Strict input output charting. No Arriaga catheterization. Septic shock: Goal blood pressure less than 140/90 mmHg with mean over 65. Levophed as needed. Continue with IV fluid as above. Monitor blood pressure regularly for now. High D-dimer up to 1.34. Check lower limb Dopplers for DVT. Currently patient is on room air. Will hold off on CTA or VQ scan for now. Continue to monitor. If patient has more oxygen requirement then will plan for workup for pulmonary embolism. Pleuritic chest pain related to pneumonia no active chest pain at the time of my evaluation, troponin trending down EKG without significant ischemic changes Full code Carbohydrate cardiac diet DVT prophylaxis with Lovenox 40 mg subcu daily Protonix for PUD prophylaxis. Transfer to MedSur floor. Attestations Medical Necessity Statement*: Requires further hospitalization for management of sepsis in setting of right upper lobe pneumonia, type 2 diabetes mellitus with hyperglycemia, ANTHONY Diagnoses Sepsis A41.9 Right upper lobe pneumonia J18.9 Pneumonia type: due to unspecified organism Acute hyponatremia E87.1 Acute kidney insufficiency N28.9 Hyperglycemia due to diabetes mellitus E11.65 Diabetic peripheral neuropathy associated with type 2 diabetes mellitus E11.42 PVD (peripheral vascular disease) I73.9
[2022-09-16] MEDS: gabapentin 100 mg Capsule PO ×2 (15:58→20:07)
[2022-09-16 16:39] LABS: Glucose Point of Care 168 mg/dL (70-110)
[2022-09-16] MEDS: atorvastatin 40 mg Tablet 20 MG PO (20:07)
[2022-09-16 20:52] LABS: Glucose Point of Care 105 mg/dL (70-110)
--- NOTE | 2022-09-16 23:02 | USCV_ITS ---
Lamberto Oliva Age: 62 Gender: M : 1960 Exam Date: 09/16/2022 02:51 Ordering Phys: Romel Fuentes MD Technologist: FLTECHER Exam Location: [facility] [place]: swelling No history of DVT per patient. HISTORY: swelling No history of DVT per patient. PROCEDURES: Venous duplex imaging was performed in bilateral lower extremities. The following venous structures were evaluated: common femoral vein, profunda vein, proximal portion of the greater saphenous vein, superficial femoral vein, and the popliteal vein. In addition, the posterior tibial and peroneal veins were evaluated. Serial compression, augmentation maneuvers, and spectral Doppler flow evaluation were performed, which were normal. Bilaterally, the common femoral, superficial femoral, profunda femoral, popliteal, posterior tibial, greater saphenous veins, and the peroneal veins were identified and interrogated in the standard fashion. These veins were found to be easily compressible with spontaneous blood flow. No evidence of thrombus noted. CONCLUSIONS No evidence of right lower extremity DVT. No evidence of left lower extremity DVT. Que Garcia MD (Electronically Signed) Final Date: 16 September 2022 14:28 S
[2022-09-17] VITALS (14 sets, daily range): BP systolic 111–132; BP diastolic 70–77; PULSE 67–98; RESP 16–18; TEMP 36.6–36.9; O2SAT 92–98
[2022-09-17] MEDS: levalbuterol 0.63 mg/3 mL Neb INHALATION ×4 (01:44→20:30)
[2022-09-17] MEDS: ipratropium 0.5 mg/2.5 mL Neb INHALATION ×4 (01:44→20:30)
[2022-09-17 05:01] LABS: Hematocrit 36.9 % (42.0-52.0); Hemoglobin 12.3 g/dL (11.7-16.6); Mean Corpuscular HGB Conc 33.3 g/dL (30.0-36.0); Mean Corpuscular Hemoglobin 30.9 pg (28.0-34.0); Mean Corpuscular Volume 92.7 fl (80-94); Mean Platelet Volume 10.5 fL (7.4-10.4); Platelet Count 296 10^3/cmm (130-400); Red Blood Count 3.98 10^6/uL (4.1-5.3); Red Cell Distribution Width 13.2 % (12.1-15.1); White Blood Count 9.7 10^3/uL (4.0-10.0)
[2022-09-17 05:17] LABS: Chol HDL Ratio 2.05 mg/dL (1.0-5.00); Cholesterol 84 mg/dL (0-200); HDL Cholesterol 41 mg/dL (60-100); LDL Cholesterol Calculated 22 mg/dL (50-129); Magnesium 2.2 mg/dL (1.7-2.3); Phosphorus 2.9 mg/dL (2.5-4.5); Triglycerides 104 mg/dL (0-150); VLDL Cholestrol Calculation 21 mg/dL (0-30)
[2022-09-17 05:32] LABS: Folate Level 15.1 ng/mL (4.5-32.2)
[2022-09-17 05:37] LABS: Alanine Aminotransferase 28 U/L (0-41); Albumin Level 2.8 g/dL (3.5-5.2); Alkaline Phosphatase 90 U/L (40-130); Anion Gap 18.5 (5-19); Aspartate Amino Transferase 31 U/L (0-40); Blood Urea Nitrogen 29 mg/dL (8-23); Calcium 8.3 mg/dL (8.5-10.5); Carbon Dioxide 19 mmol/L (22-29); Chloride 103 mmol/L (98-107); Globulin 2.7 g/dL (1.3-4.6); Glomerular Filtration Rate 67.6 mL/min (90-130); Glucose 107 mg/dL (65-115); Osmolality Calculated 288 mOsm/kg (285-295); Potassium 4.5 mmol/L (3.5-5.1); Sodium 136 mmol/L (136-145); Total Bilirubin 0.4 mg/dL (0.15-1.2); Total Protein 5.5 g/dL (6.6-8.7)
[2022-09-17 05:54] LABS: Absolute Neutrophil 7.6 10^3/cmm (1.4-6.5); Absolute Segmented Neutrophil 7.6 10/cmm (1.6-7.1); Eosinophils 1 %; Lymphocytes 11 %; Monocytes Absolute 0.5 10^3/cmm (0.1-0.6); Platelet Estimate Normal (Normal); Segmented Neutrophils 78 %; Slide Review Slide Review Perform; Total Cells Counted 100 (0-100)
[2022-09-17] MEDS: allopurinol 100 mg Tablet PO (06:03)
[2022-09-17] MEDS: pantoprazole DR 40 mg Tablet PO (06:03)
[2022-09-17] MEDS: sodium chloride 0.9% 1,000 ML 100 ML IV (06:07)
[2022-09-17 06:34] LABS: Glucose Point of Care 122 mg/dL (70-110)
[2022-09-17] MEDS: cefTRIAXone 1,000 MG in sodium chloride 0.9% (plus) 50 ML 100 MG IV (08:32)
[2022-09-17] MEDS: sennosides-docusate Tablet 1 TAB PO (08:32)
[2022-09-17] MEDS: gabapentin 100 mg Capsule PO ×3 (08:32→21:53)
[2022-09-17] MEDS: azithromycin 250 mg Tablet 500 MG PO (08:34)
[2022-09-17] MEDS: enoxaparin 40 mg/0.4 mL Syringe SUBCUT (10:45)
[2022-09-17 11:25] LABS: Glucose Point of Care 158 mg/dL (70-110)
[2022-09-17] MEDS: insulin lispro 100 unit/1 mL SUBCUT ×3 (11:55→21:53)
--- NOTE | 2022-09-17 14:43 | PM.PN ---
Subjective Subjective: No acute events overnight. Today morning seen on [facility] floor. Patient is lying comfortably in bed, awake and alert. Denies any nausea vomiting, headache. Remains on room air. Blood work shows resolution of leukocytosis, stable hemoglobin levels, CMP showing resolution of ANTHONY with creatinine down to 1.1, BUN improving down to 29, blood sugars improving as well, A1c of 12. Over the last 24 hours received 10 units of Humalog and 30 units of Lantus. Vitals/I&O/Wt Last Vital Signs Temp 98.2 F 09/17/22 11:51 Pulse 86 09/17/22 14:03 Resp 16 09/17/22 14:03 BP 124/77 09/17/22 11:51 Pulse Ox 92 09/17/22 14:03 O2 Del Method Room Air 09/17/22 14:03 09/16/22 09/17/22 09/17/22 22:59 06:59 14:59 Intake Total 1000 / 2195 1000 / 3195 1228.333 / 1228.333 Balance 1000 / 1895 1000 / 2895 1228.333 / 1228.333 Weight last 48 hrs Weight 105.687 kg Physical Exam Narrative: General: No acute distress, AO x3 HEENT: PERRLA, pupils bilaterally equal and reactive Chest: Normal vesicular breath sounds, right upper and middle lobe rhonchi with coarse crackles, equal good air entry bilaterally CVS: S1-S2 regular, no murmurs, no tachycardia, no gallops, no rubs Abdomen: Soft, nontender, no organomegaly, bowel sounds present Neuro: No focal deficits, no facial deformity, AO x3, power 5/5 in all limbs Data 09/17/22 04:27 09/17/22 04:27 Micro: Microbiology 09/15/22 20:08 Blood Culture - Preliminary Blood NEGATIVE TO DATE 09/15/22 20:08 Blood Culture - Preliminary Blood NEGATIVE TO DATE 09/15/22 22:45 MRSA Culture - Final Nose 09/15/22 22:45 Bacterial Antigens - Final Urine,Voided A&P Assessment and plan (1) Sepsis: (2) Right upper lobe pneumonia: Qualifiers: Pneumonia type: due to unspecified organism Qualified Code(s): J18.9 - Pneumonia, unspecified organism (3) Acute hyponatremia: (4) Acute kidney insufficiency: (5) Hyperglycemia due to diabetes mellitus: (6) Diabetic peripheral neuropathy associated with type 2 diabetes mellitus: (7) PVD (peripheral vascular disease): Plan Sepsis related to pneumonia: Present on admission. Ruled in with tachycardia, tachypnea, hypotension, leukocytosis with endorgan damage in kidneys. Sign off infection lungs with concerns for right upper lobe pneumonia. Blood cultures so far negative. Sputum culture awaited. Urine Legionella, bacterial antigen, MRSA swab negative. For now continue with IV ceftriaxone and oral azithromycin. If remains hemodynamically stable we will plan to transition to oral antibiotics in next 24 hours. Keep me on artery pressure 65, saturation over 92%. Type 2 diabetes mellitus with hyperglycemia without DKA: Blood sugars better controlled. Continue with insulin sliding scale before meals and at bedtime at moderate dose protocol. A1c found to be more than 12. Continue with Lantus 30 units at bedtime. Overall patient has received 40 units of insulin in last 24 hours. Takes 26 units of Lantus at home. Will monitor further insulin requirement in next 24 hours for discharge planning. ANTHONY: Resolved. Creatinine down to baseline.. Most likely in setting of sepsis along with nephrotoxic drugs including hydrochlorothiazide and lisinopril. Medical decompression done for nephrotoxic drugs. Monitor BMP daily for now. Patient eating okay. Stop IV fluids. Strict input output charting. No Arriaga catheterization. Septic shock: Goal blood pressure less than 140/90 mmHg with mean over 65. Septic shock resolved. Monitor blood pressure regularly for now. High D-dimer up to 1.34. Lower limb Dopplers negative for DVT. Currently patient is on room air. Will hold off on CTA or VQ scan for now. Continue to monitor. If patient has more oxygen requirement then will plan for workup for pulmonary embolism. Pleuritic chest pain related to pneumonia no active chest pain at the time of my evaluation, troponin trending down EKG without significant ischemic changes Full code Carbohydrate cardiac diet DVT prophylaxis with Lovenox 40 mg subcu daily Protonix for PUD prophylaxis. Transfer to MedSur floor. Attestations Medical Necessity Statement*: Requires further hospitalization for management of sepsis in setting of pneumonia, severe uncontrolled type 2 diabetes mellitus while outpatient insulin requirement is sought for safe discharge planning Diagnoses Sepsis A41.9 Right upper lobe pneumonia J18.9 Pneumonia type: due to unspecified organism Acute hyponatremia E87.1 Acute kidney insufficiency N28.9 Hyperglycemia due to diabetes mellitus E11.65 Diabetic peripheral neuropathy associated with type 2 diabetes mellitus E11.42 PVD (peripheral vascular disease) I73.9
[2022-09-17 16:50] LABS: Glucose Point of Care 216 mg/dL (70-110)
[2022-09-17 21:31] LABS: Glucose Point of Care 221 mg/dL (70-110)
[2022-09-17] MEDS: atorvastatin 40 mg Tablet 20 MG PO (21:52)
[2022-09-17] MEDS: insulin glargine 100 units/1 mL 30 UNIT SUBCUT (21:53)
[2022-09-18] VITALS (9 sets, daily range): BP systolic 104–124; BP diastolic 69–75; PULSE 68–99; RESP 16–18; TEMP 36.4–36.9; O2SAT 95–98
[2022-09-18] MEDS: levalbuterol 0.63 mg/3 mL Neb INHALATION ×2 (02:14→08:40)
[2022-09-18] MEDS: ipratropium 0.5 mg/2.5 mL Neb INHALATION ×2 (02:14→08:40)
[2022-09-18 05:00] LABS: Basophils # 0.1 10^3/uL (0.0-0.1); Basophils % 1.3 %; Eosinophils # 0.2 10^3/uL (0.0-0.8); Eosinophils % 2.1 %; Hematocrit 38.5 % (42.0-52.0); Hemoglobin 12.7 g/dL (11.7-16.6); Lymphocytes # 0.8 10^3/uL (0.8-4.8); Mean Corpuscular Hemoglobin 30.9 pg (28.0-34.0); Mean Corpuscular Volume 93.7 fl (80-94); Mean Platelet Volume 10.3 fL (7.4-10.4); Monocytes # 0.4 10^3/uL (0.2-0.9); Monocytes % 5.8 %; Neutrophils # 5.44 10^3/uL (1.8-7.7); Neutrophils % 72.2 %; Nucleated Red Blood Cells % 0 %; Platelet Count 269 10^3/cmm (130-400); Red Blood Count 4.11 10^6/uL (4.1-5.3); Red Cell Distribution Width 13.2 % (12.1-15.1); White Blood Count 7.5 10^3/uL (4.0-10.0)
[2022-09-18 05:18] LABS: Magnesium 2.1 mg/dL (1.7-2.3)
[2022-09-18 05:32] LABS: Alanine Aminotransferase 33 U/L (0-41); Albumin Level 2.6 g/dL (3.5-5.2); Alkaline Phosphatase 99 U/L (40-130); Anion Gap 15.3 (5-19); Aspartate Amino Transferase 30 U/L (0-40); Blood Urea Nitrogen 23 mg/dL (8-23); Calcium 8.7 mg/dL (8.5-10.5); Carbon Dioxide 21 mmol/L (22-29); Chloride 106 mmol/L (98-107); Globulin 3.9 g/dL (1.3-4.6); Glomerular Filtration Rate 75.5 mL/min (90-130); Glucose 188 mg/dL (65-115); Osmolality Calculated 293 mOsm/kg (285-295); Potassium 5.3 mmol/L (3.5-5.1); Sodium 137 mmol/L (136-145); Total Bilirubin 0.3 mg/dL (0.15-1.2); Total Protein 6.5 g/dL (6.6-8.7)
[2022-09-18 05:45] LABS: Slide Review Slide Review Perform
[2022-09-18] MEDS: pantoprazole DR 40 mg Tablet PO (06:18)
[2022-09-18] MEDS: allopurinol 100 mg Tablet PO (06:19)
[2022-09-18 06:55] LABS: Glucose Point of Care 170 mg/dL (70-110)
[2022-09-18] MEDS: azithromycin 250 mg Tablet 500 MG PO (08:20)
[2022-09-18] MEDS: cefTRIAXone 1,000 MG in sodium chloride 0.9% (plus) 50 ML 100 MG IV (08:21)
[2022-09-18] MEDS: sennosides-docusate Tablet 1 TAB PO (08:21)
[2022-09-18] MEDS: gabapentin 100 mg Capsule PO (08:21)
[2022-09-18] MEDS: insulin lispro 100 unit/1 mL SUBCUT ×2 (08:22→12:40)
[2022-09-18] MEDS: enoxaparin 40 mg/0.4 mL Syringe SUBCUT (11:07)
--- NOTE | 2022-09-18 11:22 | P.DS_ITS ---
Discharge Providers Date of Admission: 09/15/22 22:01 Date of Discharge: September 18, 2022 Attending Provider at Admission: Romel Fuentes MD Attending Provider at Discharge: Chun Law MD Primary Care Provider: Lauren Kaufman MD Diagnoses at Discharge Discharge Diagnosis (1) Sepsis: Status: Acute (2) Right upper lobe pneumonia: Status: Acute Qualifiers: Pneumonia type: due to unspecified organism Qualified Code(s): J18.9 - Pneumonia, unspecified organism (3) Acute hyponatremia: Status: Acute (4) Acute kidney insufficiency: Status: Acute (5) Hyperglycemia due to diabetes mellitus: Status: Acute (6) Diabetic peripheral neuropathy associated with type 2 diabetes mellitus: Status: Acute (7) PVD (peripheral vascular disease): Status: Acute Reason for Visit Reason for Visit: Dizzy Brief History: History as per HPI: Lamberto Oliva is a 62 year old male with history of type 2 diabetes peripheral vascular disease, neuropathy, presented today with chief complaint of feeling dizzy and lightheaded. Stating that he lives alone, he has not missed any of his medications, for last 2 to 3 days he has been experiencing chills with generalized weakness and fatigue he has not noticed fever, he is endorsing chest pain on coughing only, no active chest pain at the time of my evaluation, endorsing loose stools, does not use oxygen at home.? Patient is active, drove himself to the hospital.? In the ER he was diagnosed with sepsis related to pneumonia, hyponatremia, ANTHONY, hyperglycemia without ketosis, hypotension responsive to IV fluids. Hospital Course Hospital Course Patient was admitted to the ICU for further evaluation and management of severe sepsis along with hyperglycemia without DKA, ANTHONY in setting of pneumonia. He was started on broad-spectrum antibiotics, IV hydration and aggressive insulin sliding scale. He responded well to the treatment and has remained hemodynamically stable and on room air for the last 48 hours. A1c was checked and was found to be around 10. On admission patient also had pseudohyponatremia which resolved with hydration and better control of blood sugars. During hospitalization his blood cultures remain negative. He has been discharged hemodynamically stable condition on oral Augmentin and Levaquin for 5 more days. His home dose of Lantus has been changed to 20 units twice daily along with continuation of his home dose of other OHA's and Victoza. During hospitalization he was also found to have borderline blood pressures for which his home dose of lisinopril hydrochlorothiazide combination was withheld. He has been advised in detail to check his blood sugar and blood pressure daily at home and maintain a diary and follow-up with a primary care provider within the next 10 days for further adjustment of medications as needed. Plan of discussed details with the patient and he verbalized understanding. Physical Exam Narrative: General: No acute distress, AO x3 HEENT: PERRLA, pupils bilaterally equal and reactive Chest: Normal vesicular breath sounds, right upper and middle lobe rhonchi with coarse crackles, equal good air entry bilaterally CVS: S1-S2 regular, no murmurs, no tachycardia, no gallops, no rubs Abdomen: Soft, nontender, no organomegaly, bowel sounds present Neuro: No focal deficits, no facial deformity, AO x3, power 5/5 in all limbs Discharge Data Studies Completed and Pending Completed Studies During Hospitalization Category Date Time Status CT chest w con* [id number] Stat Cat Scan 09/15/22 19:52 Completed XR chest 1V portable [id number] Stat Exams 09/15/22 19:20 [place] [id number] Routine Ultrasound 09/16/22 23:02 Completed CV. echo complete* [id number] Routine Ultrasound 09/16/22 10:57 Completed Pending at discharge Category Date Time Status Blood Culture Stat Lab 09/15/22 20:08 Results MAG [Magnesium] AM LABS Lab 09/19/22 04:00 Ordered PHOS [Phosphorus] AM LABS Lab 09/19/22 04:00 Ordered Sputum Culture and Gram Stain Routine Lab 09/15/22 22:21 Uncollected Radiology Impressions Chest X-Ray 09/15/22 19:20 IMPRESSION: 1. Right upper lobe ground-glass airspace infiltrate. 2. Cardiomegaly. Chest CT 09/15/22 19:52 IMPRESSION: 1. Patchy bilateral largely right upper lobe airspace infiltrates. 2. Scattered prominent subcentimeter short axis nonspecific mediastinal lymph nodes. 3. Hepatic steatosis. 4. Emphysematous changes. Echocardiogram: CONCLUSIONS ?LV systolic function is normal with EF 55 to 60%. ?Trace mitral regurgitation ?Mild tricuspid regurgitation ?No comparison studies are available. ?Timothy Sands MD ?(Electronically Signed) ?Final Date:? ? ? 16 September 2022 ? 18:44 Laboratory Results WBC 7.5 10^3/uL (4.0-10.0) 09/18/22 04:16 RBC 4.11 10^6/uL (4.1-5.3) 09/18/22 04:16 Hgb 12.7 g/dL (11.7-16.6) 09/18/22 04:16 Hct 38.5 % (42.0-52.0) L 09/18/22 04:16 MCV 93.7 fl (80-94) 09/18/22 04:16 MCH 30.9 pg (28.0-34.0) 09/18/22 04:16 MCHC 33.0 g/dL (30.0-36.0) 09/18/22 04:16 RDW 13.2 % (12.1-15.1) 09/18/22 04:16 Plt Count 269 10^3/cmm (130-400) 09/18/22 04:16 MPV 10.3 fL (7.4-10.4) 09/18/22 04:16 Neut % (Auto) 72.2 % 09/18/22 04:16 Lymph % (Auto) 11.0 % 09/18/22 04:16 [place] % (Auto) 5.8 % 09/18/22 04:16 Eos % (Auto) 2.1 % 09/18/22 04:16 Baso % (Auto) 1.3 % 09/18/22 04:16 Neut # (Auto) 5.44 10^3/uL (1.8-7.7) 09/18/22 04:16 Lymph # (Auto) 0.8 10^3/uL (0.8-4.8) 09/18/22 04:16 [place] # (Auto) 0.4 10^3/uL (0.2-0.9) 09/18/22 04:16 Eos # (Auto) 0.2 10^3/uL (0.0-0.8) 09/18/22 04:16 Baso # (Auto) 0.1 10^3/uL (0.0-0.1) 09/18/22 04:16 Nucleated RBC % (auto) 0 % 09/18/22 04:16 Total Counted 100 (0-100) 09/17/22 04:27 Atypical Lymphs % Not Reportable 09/17/22 04:27 Absolute Neutrophils 7.6 10^3/cmm (1.4-6.5) H 09/17/22 04:27 Segmented Neutrophils 78 % 09/17/22 04:27 Abs Segm Neuts (Man) 7.6 10/cmm (1.6-7.1) H 09/17/22 04:27 Band Neutrophils 0.0 % 09/17/22 04:27 Abs Band Neuts (Man) 0.0 10^3/cmm (0.0-1.2) 09/17/22 04:27 Lymphocytes (Manual) 11 % 09/17/22 04:27 Monocytes (Manual) 5.0 % 09/17/22 04:27 Absolute Monocytes 0.5 10^3/cmm (0.1-0.6) 09/17/22 04:27 Eosinophils (Manual) 1 % 09/17/22 04:27 Absolute Eosinophils 0.0 10^3/cmm (0.0-0.7) 09/17/22 04:27 Basophils (Manual) 0.0 % 09/17/22 04:27 Absolute Basophils 0.0 10^3/cmm (0.0-0.2) 09/17/22 04:27 Metamyelocytes 1.0 % 09/16/22 01:37 Myelocytes 3.0 % 09/17/22 04:27 Promyelocytes 2.0 % 09/17/22 04:27 Nucleated RBCs # 0.0 /100WBC 09/18/22 04:16 Platelet Estimate Normal (Normal) 09/17/22 04:27 D-Dimer 1.14 ug/mIFEU (0-0.59) H 09/15/22 19:32 Sodium 137 mmol/L (136-145) 09/18/22 04:16 Potassium 5.3 mmol/L (3.5-5.1) H 09/18/22 04:16 Chloride 106 mmol/L (98-107) 09/18/22 04:16 Carbon Dioxide 21 mmol/L (22-29) L 09/18/22 04:16 Anion Gap 15.3 (5-19) 09/18/22 04:16 BUN 23 mg/dL (8-23) 09/18/22 04:16 Creatinine 1.0 mg/dL (0.7-1.2) 09/18/22 04:16 GFR Calculation 75.5 mL/min (90-130) L 09/18/22 04:16 Glucose 188 mg/dL (65-115) H 09/18/22 04:16 POC Glucose 170 mg/dL (70-110) H 09/18/22 06:41 Estimat Average Glucose 301 09/15/22 19:32 Hemoglobin A1c 12.1 % (4.0-6.0) H 09/15/22 19:32 Calculated Osmolality 293 mOsm/kg (285-295) 09/18/22 04:16 Lactic Acid 1.1 mmol/L (0.5-2.2) 09/16/22 01:37 Calcium 8.7 mg/dL (8.5-10.5) 09/18/22 04:16 Phosphorus 3.0 mg/dL (2.5-4.5) 09/18/22 04:16 Magnesium 2.1 mg/dL (1.7-2.3) 09/18/22 04:16 Iron 23 ug/dL (59-158) L 09/16/22 01:37 TIBC 178 mcg/dl 09/16/22 01:37 % Saturation 12.9 % (20-50) L 09/16/22 01:37 Unsat Iron Binding 155 ug/dL (112-347) 09/16/22 01:37 Total Bilirubin 0.3 mg/dL (0.15-1.2) 09/18/22 04:16 AST 30 U/L (0-40) 09/18/22 04:16 ALT 33 U/L (0-41) 09/18/22 04:16 Alkaline Phosphatase 99 U/L (40-130) 09/18/22 04:16 Troponin T Baseline 25 ng/L (0-15) H 09/15/22 19:32 Troponin T 120 Minute 20.10 ng/L (0-15) H 09/15/22 21:19 Delta Troponin T -4.90 ABS# (0-10) L 09/15/22 21:19 Troponin T Hi Sens 6Hr 20.21 ng/L (0-15) H 09/16/22 01:37 Troponin T Hi Sens 6Hr Delta -4.79 ng/L (0-12) L 09/16/22 01:37 C-Reactive Protein 170.2 mg/L (0.0-4.9) H 09/16/22 01:37 NT-Pro-B Natriuret Pep 181 pg/mL (0-125) H 09/15/22 19:32 Total Protein 6.5 g/dL (6.6-8.7) L 09/18/22 04:16 Albumin 2.6 g/dL (3.5-5.2) L 09/18/22 04:16 Globulin 3.9 g/dL (1.3-4.6) 09/18/22 04:16 Triglycerides 104 mg/dL (0-150) 09/17/22 04:27 Cholesterol 84 mg/dL (0-200) 09/17/22 04:27 LDL Cholesterol, Calc 22 mg/dL (50-129) L 09/17/22 04:27 Total VLDL Cholesterol 21 mg/dL (0-30) 09/17/22 04:27 HDL Cholesterol 41 mg/dL (60-100) L 09/17/22 04:27 Cholesterol/HDL Ratio 2.05 mg/dL (1.0-5.00) 09/17/22 04:27 Vitamin B12 506 pg/mL (232-1245) 09/15/22 19:32 Folate 15.1 ng/mL (4.5-32.2) 09/17/22 04:27 Procalcitonin 0.83 ng/mL (0-0.5) H 09/15/22 19:32 TSH 0.61 uIU/mL (0.27-4.20) 09/15/22 19:32 Random Cortisol 11.99 ug/dL (2.47-19.5) 09/16/22 01:37 Urine Color Light yellow (Yellow) 09/15/22 20:02 Urine Appearance Clear (CLEAR) 09/15/22 20:02 Urine pH 5 (5-7) 09/15/22 20:02 Ur Specific [place] 1.005 (1.005-1.030) 09/15/22 20:02 Urine Protein Neg (Negative) 09/15/22 20:02 Urine Glucose (UA) 4+ (Normal) H 09/15/22 20:02 Urine Ketones 1+ (Negative) H 09/15/22 20:02 Urine Blood Neg (Negative) 09/15/22 20:02 Urine Nitrate Negative (Negative) 09/15/22 20:02 Urine Bilirubin Neg (Negative) 09/15/22 20:02 Urine Urobilinogen Neg mg/dL (Negative) 09/15/22 20:02 Ur Leukocyte Esterase Negative (Negative) 09/15/22 20:02 Serum Ketones Negative (Negative) 09/15/22 19:32 Vitals Last Vital Signs Temp 98.3 F 09/18/22 07:44 Pulse 75 09/18/22 08:00 Resp 18 09/18/22 08:00 BP 107/75 09/18/22 07:44 Pulse Ox 95 09/18/22 08:00 O2 Del Method Room Air 09/18/22 08:00 Discharge Plan Discharge Patient Disposition: Home Condition: Stable Prescriptions: New Augmentin 500-125 mg tablet 1 tab PO BID Qty: 10 0RF levofloxacin 750 mg tablet 750 mg PO DAILY 5 Days Qty: 5 0RF Continued allopurinol 100 mg tablet 100 mg PO QAM (DME) Diabetic Shoes with 3 sets of insoles See Rx Instructions .Route .MEDSUPPLY Qty: 1 0RF Rx Instructions: As directed by HOME (DME) AFO Spectrum Brace to the right See Rx Instructions .Route .MEDSUPPLY Qty: 1 0RF Rx Instructions: As directed BY ERIK&O gabapentin 100 mg capsule 100 mg PO TID metformin 500 mg tablet extended release 24 hr 500 mg PO BID Victoza 2-Kwame 0.6 mg/0.1 mL (18 mg/3 mL) pen injector 1.2 mg SUBCUT QAM tramadol 50 mg tablet 50 mg PO BID PRN (Reason: pain (scale score 7-10)) Qty: 14 0RF atorvastatin 20 mg tablet 20 mg PO BEDTIME omeprazole 40 mg capsule,delayed release(DR/EC) 40 mg PO QAM aspirin 81 mg Tablet,Delayed Release (Dr/Ec) 81 mg PO DAILY PRN (Reason: Chest Pain) Jardiance 25 mg tablet 25 mg PO QAM Changed Lantus Solostar U-100 Insulin 100 unit/mL (3 mL) insulin pen 20 unit SUBCUT BID Qty: 15 0RF Discontinued lisinopril-hydrochlorothiazide 20-12.5 mg tablet 1 tab PO QAM prednisone 10 mg tablet See Rx Instructions .ROUTE .COMPLEX Rx Instructions: 10 mg orally FOR 5 DAYS THEN 5 MG DAILY Discharge Orders: Discharge Order (Routine); Ordered 09/18/22 Ordered By: Chun Law Referrals: Lauren Kaufman MD [Primary Care Provider] - 7-10 days (Please schedule a follow up appointment on Tuesday for 7-10 days) Discharge Diet: Cardiac and Diabetic Discharge Activity: Resume usual activity and Increase activity as tolerated Patient Instructions: Amoxicillin/Clavulanate Potassium (By mouth) (Augmentin, Augmentin..., Levofloxacin (By mouth) (Levaquin, Levaquin Leva-kwame), Pneumonitis (DC), Opioid Safety Activity Restrictions/Additional Instructions: Take Augmentin and Levaquin which is the antibiotics for next 5 days. Augmentin will be twice daily and Levaquin will be once daily. Dose of Lantus has been increased to 20 units twice daily. Please check your blood sugars daily at home and maintain a blood sugar diary and follow-up with a primary care provider within next 10 days for further adjustment of antidiabetic medications. For now do not take the combination of lisinopril and hydrochlorothiazide as your blood pressures are doing well without them. Check your blood pressure daily at home maintain a blood pressure diary and follow-up with your primary care provider within next 10 days for further adjustment of medications. Discharge Attestations 2 Time Spent in Discharge Care*: greater than 30 min Specific Discharge Activities: educating patient, discussing with pcp/other providers, discussing with registered nurse hh case manager/social workers/dc planners, documenting/other paperwork and evaluating patient/reviewing data Status at Discharge: Cognitive status at discharge: cognitively intact , Behavioral status at discharge: cooperative , Functional status at discharge: independent ambulation , Overall status at discharge: patient is back to baseline Quality Metrics Clinical Quality Measures [ No reported AMI, CVA or VTE this stay] Coding Level of Care Code 85186 Total time (in minutes) for Discharge: 60 Diagnoses Sepsis A41.9 Right upper lobe pneumonia J18.9 Pneumonia type: due to unspecified organism Acute hyponatremia E87.1 Acute kidney insufficiency N28.9 Hyperglycemia due to diabetes mellitus E11.65 Diabetic peripheral neuropathy associated with type 2 diabetes mellitus E11.42 PVD (peripheral vascular disease) I73.9
[2022-09-18 11:55] LABS: Glucose Point of Care 289 mg/dL (70-110)
== END 2022-09-18 14:05 | disposition home or self-care (01) | DRG 194 ==
LOC: ER 21:37 → ICU 22:01 → MEDSURG 09-16 14:49
PROVIDERS: Admitting Provider Internal Medicine; Emergency Provider Emergency Medicine; PCP Internal Medicine; Visit Provider Student in an Organized Health Care Education/Training Program
DX: J18.9 Pneumonia, unspecified organism (principal); E87.1 Hypo-osmolality and hyponatremia; N17.9 Acute kidney failure, unspecified; E11.42 Type 2 diabetes mellitus with diabetic polyneuropathy; E11.51 Type 2 diabetes mellitus with diabetic peripheral angiopathy without gangrene; E11.65 Type 2 diabetes mellitus with hyperglycemia; Z79.84 Long term (current) use of oral hypoglycemic drugs; Z79.891 Long term (current) use of opiate analgesic; Z79.82 Long term (current) use of aspirin; I10 Essential (primary) hypertension; T50.2X5A Adverse effect of carbonic-anhydrase inhibitors, benzothiadiazides and other diuretics, initial encounter; T46.4X5A Adverse effect of angiotensin-converting-enzyme inhibitors, initial encounter; Z79.85 Long-term (current) use of injectable non-insulin antidiabetic drugs
CPT/HCPCS: 36415; 36416; 71045; 71260; 80048; 80053; 80061; 81003; 82009; 82533; 82607; 82746; 82962; 83036; 83540; 83550; 83605; 83735; 83880; 84100; 84145; 84443; 84484; 85007; 85025; 85378; 86140; 86403; 87040; 87449; 87641; 93005; 93306; 93970; 94640; 94664; 96361; 96372; 96374; 96375; 99285; J0696; J1644; J1650; J1815; J2543; J7030; J7120; J7614; J7644; Q0144; Q9967

== ENCOUNTER → 2022-09-21 08:15 | Outpatient (BNVA) | payer MEDICARE, MEDICAID, SELFPAY | PROVIDERS: PCP Internal Medicine; Visit Provider Student in an Organized Health Care Education/Training Program | DX: R20.0 Anesthesia of skin; R20.2 Paresthesia of skin; M25.531 Pain in right wrist; M25.532 Pain in left wrist; Z46.89 Encounter for fitting and adjustment of other specified devices | CPT/HCPCS: 73110; 97760; 99214; L3908 ==

== ENCOUNTER 2022-09-21 11:45 | Outpatient (CLI) | payer MEDICARE, MEDICAID, SELFPAY | END 2022-09-21 11:46 | disposition home or self-care (01) | LOC: SPT 11:45 | PROVIDERS: PCP Internal Medicine; Visit Provider Student in an Organized Health Care Education/Training Program | DX: Z46.89 Encounter for fitting and adjustment of other specified devices (principal); G56.03 Carpal tunnel syndrome, bilateral upper limbs | CPT/HCPCS: 97760; 99214; L3908 ==

== ENCOUNTER → 2022-11-24 10:12 | Outpatient (BNVA) | payer MEDICARE, MEDICAID, SELFPAY | PROVIDERS: PCP Internal Medicine; Visit Provider Internal Medicine Rheumatology | DX: Z79.899 Other long term (current) drug therapy (principal); M19.041 Primary osteoarthritis, right hand; M45.6 Ankylosing spondylitis lumbar region; Z11.59 Encounter for screening for other viral diseases; Z11.1 Encounter for screening for respiratory tuberculosis; M19.90 Unspecified osteoarthritis, unspecified site; G56.01 Carpal tunnel syndrome, right upper limb | CPT/HCPCS: 36415; 73130; 82306; 83520; 85651; 86140; 86480; 86704; 86803; 86812; 87340; 99204 ==

== ENCOUNTER → 2022-12-06 07:27 | Outpatient (BNVA) | payer MEDICARE, MEDICAID, SELFPAY | PROVIDERS: PCP Internal Medicine; Visit Provider Podiatrist Foot & Ankle Surgery | DX: M25.371 Other instability, right ankle (principal); E11.42 Type 2 diabetes mellitus with diabetic polyneuropathy; M20.41 Other hammer toe(s) (acquired), right foot; M20.42 Other hammer toe(s) (acquired), left foot; I73.9 Peripheral vascular disease, unspecified; L60.3 Nail dystrophy; Z79.4 Long term (current) use of insulin; Z79.84 Long term (current) use of oral hypoglycemic drugs | CPT/HCPCS: 11721 ==

== ENCOUNTER → 2022-12-14 14:15 | Outpatient (BNVA) | payer MEDICARE, MEDICAID, SELFPAY | PROVIDERS: PCP Internal Medicine; Visit Provider Internal Medicine Rheumatology | DX: M25.562 Pain in left knee (principal) | CPT/HCPCS: 20605; J1030 ==

== ENCOUNTER 2022-12-21 13:49 | Outpatient (CLI) | payer MEDICARE, MEDICAID, SELFPAY ==
[2022-12-21 14:07] LABS: Basophils # 0.1 10^3/uL (0.0-0.1); Basophils % 1.1 %; Eosinophils # 0.1 10^3/uL (0.0-0.8); Eosinophils % 0.8 %; Hematocrit 49.6 % (37-53); Lymphocytes # 1.1 10^3/uL (0.8-4.8); Lymphocytes % 13.2 %; Mean Corpuscular HGB Conc 33.1 g/dL (30-55); Mean Corpuscular Hemoglobin 30.4 pg (27-33); Mean Corpuscular Volume 91.9 fl (82-101); Mean Platelet Volume 10.2 fL (7.4-10.4); Monocytes # 0.6 10^3/uL (0.2-0.9); Monocytes % 7.2 %; Neutrophils % 77.3 %; Nucleated Red Blood Cells % 0 %; Platelet Count 232 10^3/cmm (157-399); Red Cell Distribution Width 12.9 % (12.1-15.1); White Blood Count 8.53 10^3/uL (3.29-11.43)
[2022-12-21 14:29] LABS: Alanine Aminotransferase 150 U/L (0-41); Albumin Level 4.3 g/dL (3.5-5.2); Alkaline Phosphatase 85 U/L (40-130); Aspartate Amino Transferase 63 U/L (0-40); Globulin 2.9 g/dL (1.3-4.6); Glomerular Filtration Rate 85.2 mL/min (90-130); Total Bilirubin 0.8 mg/dL (0.15-1.2); Total Protein 7.2 g/dL (6.6-8.7)
== END 2022-12-21 13:50 | disposition home or self-care (01) ==
PROVIDERS: PCP Internal Medicine; Visit Provider Internal Medicine Rheumatology
DX: M19.90 Unspecified osteoarthritis, unspecified site (principal); Z79.899 Other long term (current) drug therapy
CPT/HCPCS: 36415; 80076; 82565; 85025; 86140

== ENCOUNTER 2023-01-04 10:07 | Outpatient (CLI) | payer MEDICARE, MEDICAID, SELFPAY ==
[2023-01-04 10:48] LABS: Alanine Aminotransferase 65 U/L (0-41); Albumin Level 4.3 g/dL (3.5-5.2); Alkaline Phosphatase 82 U/L (40-130); Aspartate Amino Transferase 34 U/L (0-40); Globulin 2.8 g/dL (1.3-4.6); Total Bilirubin 0.5 mg/dL (0.15-1.2); Total Protein 7.1 g/dL (6.6-8.7)
== END 2023-01-04 10:08 | disposition home or self-care (01) ==
LOC: LAB 10:07
PROVIDERS: PCP Internal Medicine; Visit Provider Internal Medicine Rheumatology
DX: R79.89 Other specified abnormal findings of blood chemistry (principal)
CPT/HCPCS: 36415; 80076

== ENCOUNTER → 2023-01-13 13:56 | Outpatient (BNVA) | payer MEDICARE, MEDICAID, SELFPAY | PROVIDERS: PCP Internal Medicine; Visit Provider Specialist | DX: E11.42 Type 2 diabetes mellitus with diabetic polyneuropathy (principal); G56.03 Carpal tunnel syndrome, bilateral upper limbs | CPT/HCPCS: 95911 ==

== ENCOUNTER → 2023-01-19 14:24 | Outpatient (BNVA) | payer MEDICARE, MEDICAID, SELFPAY | PROVIDERS: PCP Internal Medicine; Visit Provider Internal Medicine Rheumatology | DX: M17.0 Bilateral primary osteoarthritis of knee (principal); M19.90 Unspecified osteoarthritis, unspecified site; G56.01 Carpal tunnel syndrome, right upper limb; Z71.85 Encounter for immunization safety counseling; Z79.899 Other long term (current) drug therapy | CPT/HCPCS: 99214 ==

== ENCOUNTER → 2023-01-25 12:49 | Outpatient (BNVA) | payer MEDICARE, MEDICAID, SELFPAY | PROVIDERS: PCP Internal Medicine; Visit Provider Podiatrist Foot & Ankle Surgery | DX: E11.42 Type 2 diabetes mellitus with diabetic polyneuropathy (principal); I73.9 Peripheral vascular disease, unspecified; L60.1 Onycholysis; Z79.84 Long term (current) use of oral hypoglycemic drugs; Z79.4 Long term (current) use of insulin | CPT/HCPCS: 99213 ==

== ENCOUNTER → 2023-02-04 07:48 | Outpatient (BNVA) | payer MEDICARE, MEDICAID, SELFPAY | PROVIDERS: PCP Internal Medicine; Visit Provider Physician Assistant | DX: G56.03 Carpal tunnel syndrome, bilateral upper limbs (principal); G56.21 Lesion of ulnar nerve, right upper limb | CPT/HCPCS: 99214 ==

== ENCOUNTER 2023-02-08 08:22 | Outpatient (CLI) | payer MEDICARE, MEDICAID, SELFPAY ==
[2023-02-08 08:48] LABS: Basophils # 0.1 10^3/uL (0.0-0.1); Basophils % 1.9 %; Eosinophils # 0.3 10^3/uL (0.0-0.8); Eosinophils % 3.9 %; Hematocrit 50.3 % (37-53); Lymphocytes # 1.4 10^3/uL (0.8-4.8); Lymphocytes % 21.6 %; Mean Corpuscular Hemoglobin 29.2 pg (27-33); Mean Corpuscular Volume 88.4 fl (82-101); Mean Platelet Volume 11.1 fL (7.4-10.4); Monocytes # 0.7 10^3/uL (0.2-0.9); Monocytes % 10.7 %; Neutrophils # 3.86 10^3/uL (1.8-7.7); Neutrophils % 61.1 %; Nucleated Red Blood Cells % 0 %; Platelet Count 178 10^3/cmm (157-399); Red Blood Count 5.69 10^6/uL (3.85-5.65); White Blood Count 6.33 10^3/uL (3.29-11.43)
[2023-02-08 09:05] LABS: Alanine Aminotransferase 57 U/L (0-41); Albumin Level 4.4 g/dL (3.5-5.2); Alkaline Phosphatase 77 U/L (40-130); Aspartate Amino Transferase 33 U/L (0-40); Glomerular Filtration Rate 67.6 mL/min (90-130); Total Bilirubin 0.8 mg/dL (0.15-1.2); Total Protein 7.4 g/dL (6.6-8.7)
== END 2023-02-08 08:23 | disposition home or self-care (01) ==
LOC: LAB 08:23
PROVIDERS: PCP Internal Medicine; Visit Provider Internal Medicine Rheumatology
DX: M19.90 Unspecified osteoarthritis, unspecified site (principal); Z79.899 Other long term (current) drug therapy
CPT/HCPCS: 36415; 80076; 82565; 85025; 86140

== ENCOUNTER 2023-02-19 12:29 | Emergency (ER) | payer MEDICARE, MEDICAID, SELFPAY ==
[2023-02-19 12:30] VITALS: BP 166/81; PULSE 86; RESP 17; TEMP 36.6; O2SAT 97; BMI 29.2
--- NOTE | 2023-02-19 13:07 | ED_ITS ---
HPI - Extremity Problem General: Chief complaint: Extremity Problem,Nontraumatic Stated complaint: right wrist pain Time Seen by Provider: 02/19/23 13:05 Source: patient Mode of arrival: ambulatory History of Present Illness: 62-year-old male presents to the emergen cy room with complaints of right hand pain. He has had this for the last several months he has seen Dr. Tapia and is scheduled to have a right carpal tunnel release at the end of this month. He has not had any recent trauma or fall. Pain is just been progressively worsening last several days he would like to take something different 40 has been taking Tylenol to this point. MD Complaint: extremity pain Associated symptoms: Deny chest pain, fever(s) or rash Review of Systems Const: Denies: fever(s) or chills Card: Denies: chest pain Resp: Denies: dyspnea GI: Denies: abdominal pain : Denies: dysuria, urinary frequency or urinary urgency Musc: Denies: neck pain or back pain Skin/Breast: Denies: rash PFSH ED PFSH: Medical History Immunization counseling High risk medication use Osteoarthritis of knees, bilateral Inflammatory arthritis Hypertension Polyneuropathy due to type 2 diabetes mellitus History of amputation of great toe Onycholysis of toenail Family History Mother Diabetes Denies family history of Lupus (systemic lupus erythematosus) Rheumatoid arthritis CAD (coronary artery disease) Clotting disorder Dementia Hyperlipidemia Psychiatric illness Chronic kidney disease (CKD) Suicide Anesthesia complication Bleeding disorder Family history of premature coronary artery disease Lung disease Cancer Hypertension Stroke Social History Smoking and tobacco/nicotine status: never used tobacco/nicotine Alcohol intake: never Substance/Drug Use: never Current occupational status: disabled Physical Exam Const: COMMON NORMALS: no acute distress GENERAL APPEARANCE: cooperative and comfortable ORIENTATION/CONSCIOUSNESS: Yes awake, Yes oriented to person, Yes oriented to place and Yes oriented to time HENMT: COMMON NORMALS: normocephalic, atraumatic and hearing grossly normal bilaterally HEAD & SCALP: normocephalic and atraumatic Resp: COMMON NORMALS: normal respiratory effort, No retractions, No use of accessory muscles and clear to auscultation bilaterally AUSCULTATION: clear to auscultation bilaterally Cardio: COMMON NORMALS: regular rate, regular rhythm and No murmurs present (Cardio) RATE: regular rate RHYTHM: regular rhythm Extremity: COMMON NORMALS: normal to inspection, capillary refill normal, no clubbing, cyanosis or edema, no calf tenderness and no pedal edema Neuro: SENSORIUM/ORIENTATION: Yes oriented to person, Yes oriented to place and Yes oriented to time Skin: COMMON NORMALS: no rashes or lesions noted GENERAL SKIN EXAM: no rashes or lesions noted Course Vital Signs: Vital signs: Vital Signs Temperature 98 F 02/19/23 12:30 Pulse Rate 86 02/19/23 12:30 Respiratory Rate 17 02/19/23 12:30 Blood Pressure 166/81 02/19/23 12:30 Pulse Oximetry 97 02/19/23 12:30 Oxygen Delivery Me thod Room Air 02/19/23 12:30 MDM - Extremity (Nontraumatic) Medical Decision Making Persistent carpal tunnel. Patient is on gabapentin we will add diclofenac and a steroid taper have him follow-up with his primary care doctor with Dr. Tapia next week if persisting Medical Records I reviewed the patient's medical records. No radiology studies performed this visit Discharge Plan Discharge Patient Disposition: Home Clinical Impression: Carpal tunnel syndrome of right wrist Condition: Stable Prescriptions: New diclofenac sodium 75 mg tablet,delayed release (DR/EC) 75 mg PO Q12H PRN (Reason: pain) Qty: 20 0RF Medrol (Kwame) 4 mg tablets,dose pack See Rx Instructions .ROUTE .COMPLEX Qty: 21 0RF Rx Instructions: orally per package directions No Action epinephrine 0.15 mg/0.3 mL auto-injector 0.15 mg IM Q30M PRN Rx Instructions: do not exceed 12 doses per 24 hrs dulaglutide [Trulicity] SUBCUT albuterol sulfate inhalation ramipril PO ondansetron HCl 4 mg tablet 4 mg PO Q8H allopurinol 100 mg tablet 100 mg PO QAM (DME) Diabetic Shoes with 3 sets of insoles See Rx Instructions .Route .MEDSUPPLY Qty: 1 0RF Rx Instructions: As directed by HOME (DME) biateral wrist braces See Rx Instructions .Route .MEDSUPPLY Qty: 1 0RF Rx Instructions: As directed (DME) RIGHT WRIST BRACE See Rx Instructions .Route .MEDSUPPLY Qty: 1 0RF Rx Instructions: As directed tramadol 50 mg tablet 50 mg PO Q8H PRN (Reason: pain) Qty: 60 1RF sulfasalazine 500 mg tablet 0.5 g PO BID Qty: 60 3RF Rx Instructions: Take 1 tab daily for 1wk then stay on 1 tab twice daily.... give with food ( meal/snack) (DME) JONNATHAN Knee Brace Misc See Rx Instructions .Route Qty: 1 0RF Rx Instructions: As directed gabapentin 100 mg capsule 100 mg PO TID metformin 500 mg tablet extended release 24 hr 500 mg PO BID atorvastatin 20 mg tablet 20 mg PO BEDTIME omeprazole 40 mg capsule,delayed release(DR/EC) 40 mg PO QAM aspirin 81 mg Tablet,Delayed Release (Dr/Ec) 81 mg PO DAILY PRN (Reason: Chest Pain) Jardiance 25 mg tablet 25 mg PO QAM Lantus Solostar U-100 Insulin 100 unit/mL (3 mL) insulin pen 20 unit SUBCUT BID Qty: 15 0RF Discharge Orders: Discharge ED (Routine); Ordered 02/19/23 Ordered By: Te Hoang Referrals: Lauren Kaufman MD [Primary Care Provider] - Discharge Diet: Usual diet Discharge Activity: Limit activity as instructed Patient Instructions: Carpal Tunnel Syndrome, Opioid Safety, Pain Management Activity Restrictions/Additional Instructions: Thank you for choosing [facility] for your healthcare needs today. Please realize this is an emergency room and that we are providing you with a medical screening exam and this may not be complete and all inclusive of all the testing and or work up that you may need to determine your ailment or severity of your illness. It is very important that you follow up as instructed or that you return to the Emergency Department should you have concerns or if your condition changes or worsens in any way. Coding Level of Care Code ED Certified Ophthalmic Surgical Assistant for Aki Jimenez
== END 2023-02-19 13:18 | disposition home or self-care (01) ==
PROVIDERS: Emergency Provider Family Medicine; PCP Internal Medicine
DX: G56.01 Carpal tunnel syndrome, right upper limb (principal); Z79.82 Long term (current) use of aspirin; Z79.4 Long term (current) use of insulin; Z79.84 Long term (current) use of oral hypoglycemic drugs; I10 Essential (primary) hypertension; E11.42 Type 2 diabetes mellitus with diabetic polyneuropathy
CPT/HCPCS: 99283

== ENCOUNTER → 2023-03-08 07:16 | Outpatient (BNVA) | payer MEDICARE, MEDICAID, SELFPAY | PROVIDERS: PCP Internal Medicine; Visit Provider Podiatrist Foot & Ankle Surgery | DX: E11.42 Type 2 diabetes mellitus with diabetic polyneuropathy (principal); I73.9 Peripheral vascular disease, unspecified; M25.371 Other instability, right ankle; M20.41 Other hammer toe(s) (acquired), right foot; M20.42 Other hammer toe(s) (acquired), left foot; M21.6X1 Other acquired deformities of right foot; M21.6X2 Other acquired deformities of left foot; Z79.4 Long term (current) use of insulin | CPT/HCPCS: 99213 ==

== ENCOUNTER → 2023-04-05 08:57 | Outpatient (BNVA) | payer MEDICARE, MEDICAID, SELFPAY | PROVIDERS: PCP Internal Medicine; Visit Provider Physician Assistant | DX: G56.03 Carpal tunnel syndrome, bilateral upper limbs (principal); G56.21 Lesion of ulnar nerve, right upper limb | CPT/HCPCS: 99204 ==

== ENCOUNTER → 2023-04-13 14:28 | Outpatient (BNVA) | payer MEDICARE, MEDICAID, SELFPAY | PROVIDERS: PCP Internal Medicine; Visit Provider Internal Medicine Rheumatology | DX: Z71.89 Other specified counseling (principal); M79.662 Pain in left lower leg | CPT/HCPCS: 20610; J1030 ==

== ENCOUNTER → 2023-04-27 13:44 | Outpatient (BNVA) | payer MEDICARE, MEDICAID, SELFPAY | PROVIDERS: PCP Internal Medicine; Visit Provider Internal Medicine Rheumatology | DX: Z79.899 Other long term (current) drug therapy (principal); M19.90 Unspecified osteoarthritis, unspecified site; M17.0 Bilateral primary osteoarthritis of knee; G56.01 Carpal tunnel syndrome, right upper limb; Z71.85 Encounter for immunization safety counseling | CPT/HCPCS: 99214 ==

== ENCOUNTER 2023-05-05 05:36 | Day surgery (SDC) | payer MEDICARE, MEDICAID, SELFPAY ==
[2023-05-05] VITALS (10 sets, daily range): BP systolic 120–136; BP diastolic 72–90; PULSE 73–83; RESP 16–20; TEMP 36.1–36.4; O2SAT 93–98; BMI 29.2
[2023-05-05] MEDS: scopolamine 1.5 Patch 1 PATCH TRANSDERMA (06:29)
[2023-05-05] MEDS: sodium chloride 0.9% 1,000 ML 30 ML IV (06:29)
[2023-05-05] MEDS: acetaminophen 1,000 MG/100 ML PIGGYBACK 400 MG IV (06:29)
[2023-05-05] MEDS: ketorolac 30 mg/mL INJ IVP (06:29)
[2023-05-05 06:30] LABS: Glucose Point of Care 114 mg/dL (70-110)
--- NOTE | 2023-05-05 06:33 | ANES.PREANE2 ---
Pre-Anesthetic Assessment Height/Weight: Height 1.8 m Weight 95.254 kg Temp Pulse Resp BP Pulse Ox O2 Del Method 97.4 F L 74 18 122/83 98 Room Air 05/05/23 06:09 05/05/23 06:09 05/05/23 06:09 05/05/23 06:09 05/05/23 06:09 05/05/23 06:09 Operation Date: 05/05/23 07:00 Proposed Procedures p Carpal Tunnel Release(Right) - Jacky Greenup, DO s Cubital Tunnel Release(Right) - Jacky Willie, DO s Ulnar Nerve Transposition/ possibel(Right) - Jacky Willie, DO Familial anesthetic complications: None Was Beta Ashley taken within 24 hours: N/A Was Clonidine taken within 24 hours: N/A Last intake: Intake Last Liquid Date 05/04/23 Last Liquid Time 17:00 Last Solid Date 05/04/23 Last Solid Time 17:00 Social No alcohol and No tobacco Exam alert, oriented x 3, clear to auscultation bilaterally and regular rate & rhythm Airway Mallampati: Class IV Dentition: other (no teeth) CV/HEM Hypertension Metabolic Diabetes Mellitus, Hyperlipidemia and Morbid Obesity Anesthetic Plan ASA status: 3 Anesthesia: Choice Risk of > 500 ml blood loss (7ml/kg in children): No Medications/Allergies Home Medications Medication Instructions Recorded Confirmed Last Taken Type gabapentin 100 mg capsule 100 mg PO TID 08/21/19 05/04/23 05/04/23 History metformin 500 mg tablet,extended 500 mg PO BID 08/21/19 05/04/23 05/04/23 History release 24 hr Diabetic Shoes with 3 sets of #1 ea 04/08/22 04/27/23 03/08/23 Rx insoles allopurinol 100 mg tablet 100 mg PO QAM 05/24/22 05/04/23 05/04/23 History aspirin 81 mg tablet,delayed 81 mg PO DAILY PRN Chest Pain 08/22/22 05/04/23 05/03/23 History release atorvastatin 20 mg tablet 20 mg PO BEDTIME 08/22/22 05/04/23 05/04/23 History empagliflozin 25 mg tablet 25 mg PO QAM 08/22/22 05/04/23 05/04/23 History (Jardiance) omeprazole 40 mg capsule,delayed 40 mg PO QAM 08/22/22 05/04/23 05/04/23 History release insulin glargine 100 unit/mL (3 20 unit (0.2 mL) SUBCUT BID #15 mL 09/18/22 05/04/23 05/04/23 Rx mL) subcutaneous pen (Lantus Solostar U-100 Insulin) biateral wrist braces #1 ea 09/21/22 04/27/23 03/08/23 Rx albuterol sulfate 1 inh inhalation Q4H PRN Shortness 11/24/22 05/04/23 03/08/23 History Of Breath dulaglutide [Trulicity] 1.5 units SUBCUT DIRECTED 11/24/22 05/04/23 05/04/23 History epinephrine 0.15 mg/0.3 mL 0.15 mg IM Q30M PRN Allergy 11/24/22 05/04/23 03/08/23 History injection,auto-injector Symptoms ondansetron HCl 4 mg tablet 4 mg PO Q8H PRN Nausea And Vomiting 11/24/22 05/04/23 03/08/23 History ramipril See Rx Instructions .Route .COMPLEX 11/24/22 05/04/23 05/04/23 History leg brace (JONNATHAN Knee Brace) #1 ea 01/13/23 04/27/23 03/08/23 Rx RIGHT WRIST BRACE #1 ea 02/04/23 04/27/23 03/08/23 Rx diclofenac sodium 75 mg 75 mg PO Q12H PRN pain #20 tabs 02/19/23 05/04/23 05/04/23 Rx tablet,delayed release Diabetic shoes #1 ea 03/08/23 04/27/23 03/08/23 Rx tramadol 50 mg tablet 50 mg PO Q8H PRN pain #60 tabs 03/15/23 05/04/23 05/04/23 Rx sulfasalazine 500 mg tablet 0.5 g PO BID #60 tabs 04/27/23 05/04/23 05/04/23 Rx adalimumab 40 mg/0.8 mL 40 mg (0.8 mL) SUBCUT Q14D #2 ea 05/04/23 Unknown Rx subcutaneous pen kit (Humira Pen) Allergies Allergy/AdvReac Type Severity Reaction Status Date / Time No Known Allergies Allergy Verified 03/28/24 06:14 Current Medications Generic Name Dose Route Start Last Admin Trade Name Freq PRN Reason Stop Dose Admin Sodium Chloride 1,000 mls @ 30 mls/hr 05/05/23 06:00 05/05/23 06:29 Sodium Chloride 0.9% IV 05/06/23 05:59 30 mls/hr .Q24H LILO Administration PFSH Anesthesia Medical History Immunization counseling High risk medication use Osteoarthritis of knees, bilateral Inflammatory arthritis Hypertension Polyneuropathy due to type 2 diabetes mellitus Onycholysis of toenail Surgical History History of amputation of great toe Family History Mother Diabetes Denies family history of Lupus (systemic lupus erythematosus) Rheumatoid arthritis CAD (coronary artery disease) Clotting disorder Dementia Hyperlipidemia Psychiatric illness Chronic kidney disease (CKD) Suicide Anesthesia complication Bleeding disorder Family history of premature coronary artery disease Lung disease Cancer Hypertension Stroke Social History Smoking and tobacco/nicotine status: never used tobacco/nicotine Alcohol intake: never Substance/Drug Use: never Current occupational status: disabled Data Anesthesia Cardiac Studies: Echocardiogram 09/16/22
--- NOTE | 2023-05-05 06:52 | W.PM.OPSUD ---
Surgery/Procedure H&P Update DATE OF PROCEDURE: May 05, 2023 DATE H&P PERFORMED: 04/05/23 H&P UPDATE INFORMATION: I have reviewed H&P completed within last 30 days, I have examined patient prior to procedure and No changes to prior documentation PREOP DIAGNOSIS: Right carpal tunnel & right cubital tunnel syndrome PRIMARY INDICATION FOR PROCEDURE: Right carpal tunnel & right cubital tunnel syndrome PLANNED PROCEDURE: Operation Date: 05/05/23 07:00 Proposed Procedures p Carpal Tunnel Release(Right) - DO kami Vlaadez Cubital Tunnel Release(Right) - DO kami Valadez Ulnar Nerve Transposition/ possibel(Right) - Jacky Tapia DO
[2023-05-05] MEDS: ceFAZolin 2,000 MG in sodium chloride 0.9% (plus) 50 ML 100 MG IV (06:54)
[2023-05-05] MEDS: lidocaine 2% INJ 20 mL INJECTION (08:22)
[2023-05-05] MEDS: ROPivacaine 0.5% SDV 30 mL 150 MG INJECTION (08:22)
--- NOTE | 2023-05-05 08:33 | W.PM.BPON ---
Date of Procedure: 05/05/2023 Surgeon: Jacky Tapia DO Thrasher Feeder(s): Brady Tapia PA-C Procedure(s) performed: Right carpal tunnel release Right cubital tunnel release Right ulnar nerve transposition Findings of the procedure(s): Patient was found to have recurrent right carpal tunnel syndrome as well as patient had recurrent right cubital tunnel syndrome and an unstable ulnar nerve and as result underwent carpal tunnel release and cubital tunnel release with ulnar nerve transposition without any issues or complications. Patient currently has a [place] drain in place as well as cubital tunnel splint on and I will have patient see OT hand therapy to have drain removed as well as for dressing change. Will remain in splint for the next 10 to 14 days. Estimated blood loss: 10 mm Specimen(s) removed: None Post-operative diagnosis: Right carpal tunnel syndrome right cubital tunnel syndrome with unstable ulnar nerve
--- NOTE | 2023-05-05 08:34 | P.OP_ITS ---
Operative Report Date of procedure: May 05, 2023 Surgeon: Jacky Tapia DO Procedure: Preoperative diagnosis: Right carpal tunnel syndrome Right cubital tunnel syndrome post-op diagnosis:? 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 Patient had EMG findings consistent with this.? ?On my examination in the office patient findings are consistent with this preoperative diagnosis. We had detailed discussion in office about continued nonoperative intervention versus operative intervention.? Patient understands the risk benefits complications alternatives to surgical and nonsurgical treatment options.? Patient understands the risks include but not limited to make it better, make it worse, infection, permanent injury to nerve, decreased function and sensation to the hand with persistent weakness.? Given these risks patient understands and agrees to proceed with current plan.? Patient elects to proceed with a right cubital tunnel release and possible ulnar nerve?transposition. all questions answered. Procedure: Patient was seen and evaluated in the preoperative holding area.? The consent that was filled out in office was reviewed with patient. Correct extremity was then marked.? Patient was seen evaluated by the preoperative team as well as anesthesia department.? Once cleared for surgery patient was then taken to the operative suite and transported onto the operative table all bony prominences were well-padded and patient was secured to the table.? Right upper extremity was placed on an armboard.? Patient then underwent anesthesia per the anesthesia department. The right upper extremity tourniquet was applied. Patient's right upper extremity was then prepped and draped in standard orthopedic fashion.? This point a final timeout was performed. Patient received appropriate preop antibiotics. Esmarch tourniquet was used to exsanguinate the operative extremity and was insufflated to 250 mmHg.? I started with the carpal tunnel release first.? I made a standard open carpal tunnel release starting with the distal most extent in the palm at the Gibson's cardinal line and the incision line was made in line with the fourth ray and ended just distal to the wrist crease.? Sharp scalpel incision was made through skin and subcutaneous tissue I then utilizing self retainer then began to dissect with dissection scissors split longitudinally the palmar fascia.? Next I then utilizing my curriculum assistant Ivandajoana retractors subsequently utilizing scalpel feathered through the palmaris brevis as well as through the transverse carpal ligament distally.? Once I encountered the floor of the transverse carpal ligament and entered into the carpal tunnel I then switched to dissection scissors.? Carefully released the distal extent of the transverse carpal ligament to the palmar fat.? Care was to protect the recurrent branch and not injured this during this part of the case.? Next I then placed a [place] underneath the transverse carpal ligament proximally to protect the nerve in the carpal tunnel contents.? And then I subsequently under loupe magnification utilize my dissection scissors to release the transverse carpal ligament into the antebrachial fascia under direct visualization with care to keep my scissors with a curved ulnarly away from the palmar cutaneous branch.? The transverse carpal was then completely decompressed proximally and a [place] was then placed both distally and proximally throughout the carpal tunnel and had complete decompression of the nerve.? The nerve did appear to have hourglass shape as it went through the carpal tunnel.? With significant irritation noted around the nerve.? No masses were noted within the contents of the carpal tunnel.? This completed the carpal tunnel release and then I subsequently irrigated the wound bed and placed a wet Ray-Srinath into the incision for later closure. Standard curvilinear incision was made centering over the ulnar nerve between the medial epicondyle and olecranon process.? Sharp scalpel excision through skin and subcutaneous tissue was performed.? Once I encountered subcutaneous tissue I then utilized dissection scissors to spread in the path of the [facility] and care was made to protect any nerve branches throughout this case.? I then utilized a scalpel to complete my dissection directly on over to the flexor pronator mass and elevated this fat tissue directly off of the fascia.? I started my dissection of the ulnar nerve the nerve proximally.? Once identified I then utilized Littler dissection scissors and decompress the nerve completely and proximally and utilized blunt dissection to make sure there was no entrapment proximally..? Once decompressed proximally I then traced the nerve distal through Parmar's ligament and as it entered the FCU fascia aponeurosis and completed by decompression and ulnar nerve neurolysis distally.? The nerve was completely released in situ no areas of entrapment I was able to place my finger distally and proximally with no areas entrapment along the nerve.? At this point in time by in situ release was completed I then subsequently took the elbow through range of motion and subluxation was noted over the medial epicondyle and plan for ulnar nerve?transposition?was made.? ?I thoroughly irrigated the nerve throughout the case to prevent it from drying out. Of note the ulnar nerve had significant irritation and inflammation.? Next while protecting the nerve as well as care to not injure any venous structures I then excised the intermuscular septum proximally with bipolar electrocautery.? This allowed for there to be no entrapment proximally with my?transposition.? Next I then performed my standard Z- flap into the fascia.? This created a large thick fascial band that would be sutured to secure the ulnar nerve when its been transposed.? Once the incision was made just through the fascia I then mobilized just the fascia and freed the muscle belly off of this.? I then sequentially excised the T and Y shaped fascial bands throughout the flexor pronator mass to prevent any type of bandage strip structure irritating the?transposition.? At this point I had only soft tissue and muscle belly with which the ulnar nerve could rest.? I had to do a small excision of the muscle belly distally to create a nice trough for the nerve to lie.? At this point I then mobilized the nerve and this was transposed into the flexor pronator insertion under the fasica flaps.? There was no evidence of kinking/tethering of the nerve.? this was significantly redundant and lax with no signs of tension or entrapment.? I then utilized a 3-0 Ethibond suture and approximated the fascia flaps that was created and the right knee okay okay secured with horizontal interrupted mattress stitches.? I was able to place 2 fingers under the repair with no evidence of entrapment and the elbow was taken through range of motion and no areas of entrapment or kinking were noted on the nerve and the nerve was redundant relaxed in all ranges of motion.? This completed my ulnar nerve decompression of the cubital tunnel as well as ulnar nerve?transposition.? Wound bed was then thoroughly irrigated.? Tourniquet was deflated.? Maintained exact hemostasis with bipolar electrocautery.? I did place a dexter drain to prevent hematoma formation. As result the skin was reapproximated with interrupted Vicryl subcutaneous suture 3-0.? I next utilized a running horizontal mattress stitch with 3-0 nylon.? Extremity was then cleaned and the incision was then covered with Xeroform 4 x 4's ABD Curlex and soft roll and a cubital splint was then applied with an Matt wrap.? Patient was then awakened from anesthesia and taken to PACU in stable condition. Disposition: Patient taken to PACU in stable condition.? Patient given appropriate discharge instructions as well as pain medication.? We will get Patient in with OT hand therapy for splint takedown dressing change and drain pull. Patient will see me in office in 2 weeks.? pt understands? if they has any questions they can contact the office.
[2023-05-05] MEDS: HYDROcodone-acetaminophen 5-325 mg Tablet 1 TAB PO (09:43)
--- NOTE | 2023-05-05 10:35 | ANE.PACU2 ---
Inpatient post-anesthesia follow up: Airway intact: Yes Vital signs: Temperature 97.5 F Pulse Rate 73 Respiratory Rate 18 Blood Pressure 129/87 Pulse Oximetry 93 Oxygen Delivery Me thod Room Air Oxygen Flow Rate 6 Fraction of Inspir ed Oxygen Hydration adequate: Yes Nausea and vomiting: No Pain level: 1 Mental status: Baseline
--- NOTE | 2023-05-05 10:43 | PC.NURSE ---
scopolamine patch removed by nurse before discharge per pt request.
== END 2023-05-05 10:35 | disposition home or self-care (01) ==
PROVIDERS: PCP Internal Medicine; Visit Provider Student in an Organized Health Care Education/Training Program
PROC: (CPT 64721; principal; 2023-05-05 07:00)
PROC: (CPT 64718; 2023-05-05 07:00)
PROC: (CPT 64718; 2023-05-05 07:00)
DX: G56.01 Carpal tunnel syndrome, right upper limb (principal); G56.21 Lesion of ulnar nerve, right upper limb; I10 Essential (primary) hypertension; E78.5 Hyperlipidemia, unspecified; E66.01 Morbid (severe) obesity due to excess calories; Z68.29 Body mass index [BMI] 29.0-29.9, adult; Z79.4 Long term (current) use of insulin; E11.42 Type 2 diabetes mellitus with diabetic polyneuropathy
CPT/HCPCS: 64718; 64721; 36416; 82962; J0131; J0330; J0690; J1100; J1885; J2371; J2405; J2704; J2795; J3010; J7030

== ENCOUNTER 2023-05-06 06:00 | Outpatient (RCR) | payer MEDICARE, MEDICAID, SELFPAY | END 2023-05-08 23:59 | disposition home or self-care (01) | LOC: SOT 06:00 | PROVIDERS: Visit Provider Physician Assistant | DX: Z47.89 Encounter for other orthopedic aftercare (principal) | CPT/HCPCS: 97165; 97530 ==

== ENCOUNTER 2023-05-09 06:00 | Outpatient (RCR) | payer MEDICARE, MEDICAID, SELFPAY | END 2023-06-07 23:59 | disposition home or self-care (01) | LOC: SOT 06:00 | PROVIDERS: Visit Provider Physician Assistant | DX: Z47.89 Encounter for other orthopedic aftercare (principal) | CPT/HCPCS: 97110; 97530 ==

== ENCOUNTER 2023-05-09 09:48 | Emergency (ER) | payer MEDICARE, MEDICAID, SELFPAY ==
[2023-05-09 10:10] VITALS: BP 146/72; PULSE 84; RESP 15; TEMP 36.9; O2SAT 97; BMI 32.8
--- NOTE | 2023-05-09 11:09 | XR_ITS ---
WS: [id number] Examination: XR hand RT min 3V* [id number] Reason for Exam: Chronic pain Date: May 09, 2023 Comparison: None. Findings: The bone density is maintained. There is marked soft tissue swelling particularly dorsally but also at the level of the distal forear m. Vascular calcification is present. There is no fracture or dislocation Mild degenerative changes are noted. This appears dominant in the lateral wrist particularly at the f irst carpal metacarpal joint as well as the scaphoid oh trapezium joint. Impression: Prominent soft tissue swelling is present. I see no fracture Osteoarthritic changes are present.
--- NOTE | 2023-05-09 11:50 | ED_ITS ---
HPI - Extremity Problem 2 General: Chief complaint: Extremity Problem,Nontraumatic Stated complaint: post op hand trouble Time Seen by Provider: 05/09/23 11:09 Source: patient Mode of arrival: ambulatory History of Present Illness: 62-year-old male who had a carpal tunnel release and ulnar nerve transposition approximately 4 days ago. He was placed in an elbow splint. He had a drain left in place as well he has follow-up this week with Dr. Tapia who did his procedures. No fever sweats or chills he is complaining of pain and swelling. MD Complaint: extremity pain and extremity swelling Onset (ago): day(s) Pain Consistency: constant Location: right Quality: aching Radiation: distal Relieving factors: nothing Exacerbating factors: nothing Associated symptoms: Deny chest pain, fever(s) or rash Review of Systems 2 Const: Denies: fever(s) or chills Card: Denies: chest pain Resp: Denies: dyspnea GI: Denies: abdominal pain : Denies: dysuria, urinary frequency or urinary urgency Musc: Denies: neck pain or back pain Skin/Breast: Denies: rash PFSH ED 2 PFSH: Medical History Immunization counseling High risk medication use Osteoarthritis of knees, bilateral Inflammatory arthritis Hypertension Polyneuropathy due to type 2 diabetes mellitus Onycholysis of toenail Surgical History History of amputation of great toe Family History Mother Diabetes Denies family history of Lupus (systemic lupus erythematosus) Rheumatoid arthritis CAD (coronary artery disease) Clotting disorder Dementia Hyperlipidemia Psychiatric illness Chronic kidney disease (CKD) Suicide Anesthesia complication Bleeding disorder Family history of premature coronary artery disease Lung disease Cancer Hypertension Stroke Social History Smoking and tobacco/nicotine status: never used tobacco/nicotine Alcohol intake: never Substance/Drug Use: never Current occupational status: disabled Physical Exam 2 Const: COMMON NORMALS: no acute distress GENERAL APPEARANCE: cooperative and comfortable ORIENTATION/CONSCIOUSNESS: Yes awake, Yes oriented to person, Yes oriented to place and Yes oriented to time HENMT: COMMON NORMALS: normocephalic, atraumatic and hearing grossly normal bilaterally HEAD & SCALP: normocephalic and atraumatic Resp: COMMON NORMALS: normal respiratory effort, No retractions, No use of accessory muscles and clear to auscultation bilaterally AUSCULTATION: clear to auscultation bilaterally Cardio: COMMON NORMALS: regular rate, regular rhythm and No murmurs present (Cardio) RATE: regular rate RHYTHM: regular rhythm Extremity: COMMON NORMALS: normal to inspection, capillary refill normal, no clubbing, cyanosis or edema, no calf tenderness and no pedal edema Neuro: SENSORIUM/ORIENTATION: Yes oriented to person, Yes oriented to place and Yes oriented to time Skin: COMMON NORMALS: no rashes or lesions noted GENERAL SKIN EXAM: no rashes or lesions noted Course 2 Vital Signs: Vital signs: Vital Signs Temperature 98.5 F 05/09/23 10:10 Pulse Rate 79 05/09/23 12:59 Respiratory Rate 15 05/09/23 10:10 Blood Pressure 146/72 05/09/23 10:10 Pulse Oximetry 97 05/09/23 12:59 Oxygen Delivery Me thod Room Air 05/09/23 10:10 MDM - Extremity (Nontraumatic) Medical Decision Making Patient has already had the drain out at Occupational Therapy. On examination there is no evidence of infection at this time with white count is normal neurovascularly he is intact he was not completely in the brace at 90 degrees. Wounds were redressed the right elbow splint applied. Reviewed the case Dr. Tapia does not recommend any further changes follow-up as previously planned continue OT as an outpatient. Medical Records I reviewed the patient's medical records. Lab Data I reviewed the patient's lab results. 05/09/23 12:19 05/09/23 12:19 Laboratory Results WBC 6.76 10^3/uL (3.29-11.43) 05/09/23 12:19 RBC 4.98 10^6/uL (3.85-5.65) 05/09/23 12:19 Hgb 15.30 g/dL (11.27-16.99) 05/09/23 12:19 Hct 45.3 % (37-53) 05/09/23 12:19 MCV 91.0 fl (82-101) 05/09/23 12:19 MCH 30.7 pg (27-33) 05/09/23 12:19 MCHC 33.8 g/dL (30-55) 05/09/23 12:19 RDW 14.0 % (12.1-15.1) 05/09/23 12:19 Plt Count 192 10^3/cmm (157-399) 05/09/23 12:19 MPV 10.7 fL (7.4-10.4) H 05/09/23 12:19 Neut % (Auto) 60.2 % 05/09/23 12:19 Lymph % (Auto) 23.4 % 05/09/23 12:19 Cache % (Auto) 11.2 % 05/09/23 12:19 Eos % (Auto) 3.3 % 05/09/23 12:19 Baso % (Auto) 1.5 % 05/09/23 12:19 Neut # (Auto) 4.07 10^3/uL (1.8-7.7) 05/09/23 12:19 Lymph # (Auto) 1.6 10^3/uL (0.8-4.8) 05/09/23 12:19 Cache # (Auto) 0.8 10^3/uL (0.2-0.9) 05/09/23 12:19 Eos # (Auto) 0.2 10^3/uL (0.0-0.8) 05/09/23 12:19 Baso # (Auto) 0.1 10^3/uL (0.0-0.1) 05/09/23 12:19 Nucleated RBC % (auto) 0 % 05/09/23 12:19 Nucleated RBCs # 0.0 /100WBC 05/09/23 12:19 Sodium 143 mmol/L (136-145) 05/09/23 12:19 Potassium 4.4 mmol/L (3.5-5.1) 05/09/23 12:19 Chloride 107 mmol/L (98-107) 05/09/23 12:19 Carbon Dioxide 25 mmol/L (22-29) 05/09/23 12:19 Anion Gap 15.4 (5-19) 05/09/23 12:19 BUN 13 mg/dL (8-23) 05/09/23 12:19 Creatinine 1.0 mg/dL (0.7-1.2) 05/09/23 12:19 GFR Calculation 75.5 mL/min (90-130) L 05/09/23 12:19 Glucose 102 mg/dL (65-115) 05/09/23 12:19 Calculated Osmolality 296 mOsm/kg (285-295) H 05/09/23 12:19 Calcium 10.1 mg/dL (8.5-10.5) 05/09/23 12:19 Total Bilirubin 0.8 mg/dL (0.15-1.2) 05/09/23 12:19 AST 18 U/L (0-40) 05/09/23 12:19 ALT 19 U/L (0-41) 05/09/23 12:19 Alkaline Phosphatase 72 U/L (40-130) 05/09/23 12:19 C-Reactive Protein 3.0 mg/L (0.0-4.9) 05/09/23 12:19 Total Protein 7.2 g/dL (6.6-8.7) 05/09/23 12:19 Albumin 4.1 g/dL (3.5-5.2) 05/09/23 12:19 Globulin 3.1 g/dL (1.3-4.6) 05/09/23 12:19 All radiology interpretation(s) finalized by discharge Discharge Plan Discharge Patient Disposition: Home Clinical Impression: Carpal tunnel syndrome of right wrist, Ulnar neuropathy at elbow of right upper extremity Condition: Stable Prescriptions: No Action epinephrine 0.15 mg/0.3 mL auto-injector 0.15 mg IM Q30M PRN (Reason: Allergy Symptoms) Rx Instructions: do not exceed 12 doses per 24 hrs dulaglutide [Trulicity] 1.5 units SUBCUT DIRECTED albuterol sulfate 1 inh inhalation Q4H PRN (Reason: Shortness Of Breath) ramipril See Rx Instructions .ROUTE .COMPLEX Rx Instructions: Patient unsure of dose ondansetron HCl 4 mg tablet 4 mg PO Q8H PRN (Reason: Nausea And Vomiting) (DME) Diabetic shoes See Rx Instructions .ROUTE .MEDSUPPLY Qty: 1 0RF Rx Instructions: With 3 pairs of inserts by the shoe shaw allopurinol 100 mg tablet 100 mg PO QAM (DME) Diabetic Shoes with 3 sets of insoles See Rx Instructions .Route .MEDSUPPLY Qty: 1 0RF Rx Instructions: As directed by HOME (DME) biateral wrist braces See Rx Instructions .Route .MEDSUPPLY Qty: 1 0RF Rx Instructions: As directed (DME) RIGHT WRIST BRACE See Rx Instructions .Route .MEDSUPPLY Qty: 1 0RF Rx Instructions: As directed sulfasalazine 500 mg tablet 0.5 g PO BID Qty: 60 5RF (DME) JONNATHAN Knee Brace Misc See Rx Instructions .Route Qty: 1 0RF Rx Instructions: As directed tramadol 50 mg tablet 50 mg PO Q8H PRN (Reason: pain) Qty: 60 1RF Humira Pen 40 mg/0.8 mL pen injector kit 40 mg SUBCUT Q14D Qty: 2 5RF gabapentin 100 mg capsule 100 mg PO TID metformin 500 mg tablet extended release 24 hr 500 mg PO BID atorvastatin 20 mg tablet 20 mg PO BEDTIME omeprazole 40 mg capsule,delayed release(DR/EC) 40 mg PO QAM aspirin 81 mg Tablet,Delayed Release (Dr/Ec) 81 mg PO DAILY PRN (Reason: Chest Pain) Jardiance 25 mg tablet 25 mg PO QAM diclofenac sodium 75 mg tablet,delayed release (DR/EC) 75 mg PO Q12H PRN (Reason: pain) Qty: 20 0RF hydrocodone-acetaminophen 5-325 mg tablet 1 tab PO Q6H PRN (Reason: pain) 7 Days Qty: 28 0RF insulin glargine [Lantus Solostar U-100 Insulin] 100 unit/mL (3 mL) insulin pen 20 unit SUBCUT BID Qty: 15 0RF Discharge Orders: Discharge ED (Routine); Ordered 05/09/23 Ordered By: Te Hoang Discharge Diet: Usual diet Discharge Activity: Limit activity as instructed Patient Instructions: Opioid Safety, Pain Management Activity Restrictions/Additional Instructions: Thank you for choosing [facility] for your healthcare needs today. Please realize this is an emergency room and that we are providing you with a medical screening exam and this may not be complete and all inclusive of all the testing and or work up that you may need to determine your ailment or severity of your illness. It is very important that you follow up as instructed or that you return to the Emergency Department should you have concerns or if your condition changes or worsens in any way. You are seen today in the emergency room with complaints of pain and swelling in the right arm. Your x-ray and labs are unremarkable. There is no sign of infection at the incision sites. Recommend you follow-up with occupational therapy as previously scheduled and with Dr. Tapia in his office as scheduled. Coding Level of Care Code ED Plant Operations Coordinator for Aki Jimenez
[2023-05-09 12:23] LABS: Basophils # 0.1 10^3/uL (0.0-0.1); Basophils % 1.5 %; Eosinophils # 0.2 10^3/uL (0.0-0.8); Eosinophils % 3.3 %; Hematocrit 45.3 % (37-53); Lymphocytes # 1.6 10^3/uL (0.8-4.8); Lymphocytes % 23.4 %; Mean Corpuscular HGB Conc 33.8 g/dL (30-55); Mean Corpuscular Hemoglobin 30.7 pg (27-33); Mean Platelet Volume 10.7 fL (7.4-10.4); Monocytes # 0.8 10^3/uL (0.2-0.9); Monocytes % 11.2 %; Neutrophils # 4.07 10^3/uL (1.8-7.7); Neutrophils % 60.2 %; Nucleated Red Blood Cells % 0 %; Platelet Count 192 10^3/cmm (157-399); Red Blood Count 4.98 10^6/uL (3.85-5.65); White Blood Count 6.76 10^3/uL (3.29-11.43)
[2023-05-09 12:45] LABS: Alanine Aminotransferase 19 U/L (0-41); Albumin Level 4.1 g/dL (3.5-5.2); Alkaline Phosphatase 72 U/L (40-130); Anion Gap 15.4 (5-19); Aspartate Amino Transferase 18 U/L (0-40); Blood Urea Nitrogen 13 mg/dL (8-23); Calcium 10.1 mg/dL (8.5-10.5); Carbon Dioxide 25 mmol/L (22-29); Chloride 107 mmol/L (98-107); Globulin 3.1 g/dL (1.3-4.6); Glomerular Filtration Rate 75.5 mL/min (90-130); Glucose 102 mg/dL (65-115); Osmolality Calculated 296 mOsm/kg (285-295); Potassium 4.4 mmol/L (3.5-5.1); Sodium 143 mmol/L (136-145); Total Bilirubin 0.8 mg/dL (0.15-1.2); Total Protein 7.2 g/dL (6.6-8.7)
[2023-05-09 12:59] VITALS: PULSE 79; O2SAT 97
== END 2023-05-09 13:01 | disposition home or self-care (01) ==
PROVIDERS: Emergency Provider Family Medicine
DX: G56.01 Carpal tunnel syndrome, right upper limb (principal); G56.21 Lesion of ulnar nerve, right upper limb; Z79.85 Long-term (current) use of injectable non-insulin antidiabetic drugs; Z79.82 Long term (current) use of aspirin; Z79.4 Long term (current) use of insulin; Z79.84 Long term (current) use of oral hypoglycemic drugs; I10 Essential (primary) hypertension; E11.42 Type 2 diabetes mellitus with diabetic polyneuropathy
CPT/HCPCS: 36415; 73130; 80053; 85025; 86140; 99284

== ENCOUNTER → 2023-05-10 06:55 | Outpatient (BNVA) | payer MEDICARE, MEDICAID, SELFPAY | PROVIDERS: Visit Provider Podiatrist Foot & Ankle Surgery | DX: E11.42 Type 2 diabetes mellitus with diabetic polyneuropathy (principal); I73.9 Peripheral vascular disease, unspecified; L60.3 Nail dystrophy; Z79.84 Long term (current) use of oral hypoglycemic drugs; Z79.4 Long term (current) use of insulin | CPT/HCPCS: 11721 ==

== ENCOUNTER → 2023-05-24 08:08 | Outpatient (BNVA) | payer MEDICARE, MEDICAID, SELFPAY | PROVIDERS: Visit Provider Student in an Organized Health Care Education/Training Program | DX: Z98.890 Other specified postprocedural states (principal) | CPT/HCPCS: 99024; 99213 ==

== ENCOUNTER 2023-06-03 09:19 | Outpatient (CLI) | payer MEDICARE, MEDICAID, SELFPAY ==
--- NOTE | 2023-06-03 09:26 | XRR_ITS ---
PROCEDURE INFORMATION: Exam: XR Left Knee Exam date and time: 06/03/2023 9:32 AM Age: 62 years old Clinical indication: Pain; Knee; Left; Additional info: Chronic left knee pain TECHNIQUE: Imaging protocol: Radiologic exam of the left knee. Views: 4 or more views. COMPARISON: CR XR knee LT 4V [id number] 08/05/2021 2:41 PM FINDINGS: Bones/joints: Normal. No acute osseous, joint, or soft tissue abnormality. Slight medial compartment narrowing and spurring. Soft tissues: Normal. XR/XR knee LT 4V [id number] IMPRESSION: No acute findings.
== END 2023-06-03 09:20 | disposition home or self-care (01) ==
LOC: RAD 09:21
PROVIDERS: PCP Internal Medicine; Visit Provider Nurse Practitioner Family
DX: M25.562 Pain in left knee (principal)
CPT/HCPCS: 73564

== ENCOUNTER 2023-07-04 13:02 | Emergency (ER) | payer MEDICARE, MEDICAID, SELFPAY ==
[2023-07-04 13:05] VITALS: BP 138/86; PULSE 78; RESP 16; TEMP 36.6; O2SAT 98
[2023-07-04] MEDS: BUPivacaine 0.5% INJ 10 mL INJECTION (14:25)
--- NOTE | 2023-07-04 15:23 | W.ED.WOUNDLC ---
HPI - Wound/Laceration General: Chief Complaint: Wound/Laceration Stated Complaint: right pointer finger cut Time Seen by Provider: 07/04/23 13:31 Source: patient Mode of arrival: ambulatory Limitations: no limitations History of Present Illness: Patient was messing with his lawn more and reaching into the deck when the blade caught his finger injury to his right index and middle finger. Injury to the tuft. Blade was not spinning at the time. Lawnmower was off. Review of Systems General: Reports: 10 or more systems reviewed and unremarkable except in HPI and below PFSH ED PFSH: Medical History Immunization counseling High risk medication use Osteoarthritis of knees, bilateral Inflammatory arthritis Hypertension Polyneuropathy due to type 2 diabetes mellitus Onycholysis of toenail Surgical History History of amputation of great toe Family History Mother Diabetes Denies family history of Lupus (systemic lupus erythematosus) Rheumatoid arthritis CAD (coronary artery disease) Clotting disorder Dementia Hyperlipidemia Psychiatric illness Chronic kidney disease (CKD) Suicide Anesthesia complication Bleeding disorder Family history of premature coronary artery disease Lung disease Cancer Hypertension Stroke Social History Smoking and tobacco/nicotine status: never used tobacco/nicotine Alcohol intake: never Substance/Drug Use: never Current occupational status: disabled Physical Exam Const: COMMON NORMALS: no acute distress, patient oriented x3 and healthy appearing HENMT: COMMON NORMALS: normocephalic and atraumatic HEAD & SCALP: normocephalic and atraumatic Extremity: RIGHT UPPER EXTREMITY: Yes hand & digits Right hand and digits: Yes inspection (has complex lacerations to index finger measuring 3cm and 3rd digit 1cm), Yes neurovascular exam and Yes other (lacerations both has missing tissue. ) Neuro: COMMON NORMALS: patient oriented x3 Procedures Laceration Laceration 1: Site: hand (tuft of 3rd digit) Side (If applicable): right Size (cm): 1 Description: stellate and flap Depth: simple, single layer Local Anesthetic: lidocaine 1% and bupivacaine 0.5% Amount of anesthesia used (mL): 5 (digital block) Pre-repair: wound explored and irrigated extensively Skin layer closed with: nylon Size (cm): 4-0 Number of sutures: 3 Technique: simple, interrupted Laceration 2: Site: hand (tuft of 2nd digit. ) Side (If applicable): right Size (cm): 3 Description: stellate, flap, irregular and other (involves nailbed) Depth: simple, single layer Local Anesthetic: lidocaine 1% and bupivacaine 0.5% Amount of anesthesia used (mL): 5 Pre-repair: wound explored, irrigated extensively, extensive debridement and wound margins revised Skin layer closed with: nylon (4) and vicryl (2) Size (cm): 4-0 (ethilon) and 5-0 (vicryl) Number of sutures: 7 Technique: simple, interrupted Course Vital Signs: Vital signs: Vital Signs Temperature 97.8 F 07/04/23 13:05 Pulse Rate 78 07/04/23 13:05 Respiratory Rate 16 07/04/23 13:05 Blood Pressure 138/86 07/04/23 13:05 Pulse Oximetry 98 07/04/23 13:05 Oxygen Delivery Me thod Room Air 07/04/23 13:05 MDM - Wound/Laceration Medical Decision Making Such as repair and extensive cleaning with Betadine and irrigation. Also placed on prophylactic antibiotics given the severe contamination of the wound. No radiology studies performed this visit Discharge Plan Discharge Patient Disposition: Home Clinical Impression: Laceration of finger of right hand, Laceration of finger Condition: Stable Prescriptions: New sulfamethoxazole-trimethoprim 800-160 mg tablet 1 tab PO BID 7 Days Qty: 14 0RF No Action epinephrine 0.15 mg/0.3 mL auto-injector 0.15 mg IM Q30M PRN (Reason: Allergy Symptoms) Rx Instructions: do not exceed 12 doses per 24 hrs (DME) Diabetic shoes See Rx Instructions .ROUTE .MEDSUPPLY Qty: 1 0RF Rx Instructions: With 3 pairs of inserts by the shoe shaw allopurinol 100 mg tablet 100 mg PO QAM (DME) Diabetic Shoes with 3 sets of insoles See Rx Instructions .Route .MEDSUPPLY Qty: 1 0RF Rx Instructions: As directed by HOME (DME) biateral wrist braces See Rx Instructions .Route .MEDSUPPLY Qty: 1 0RF Rx Instructions: As directed (DME) RIGHT WRIST BRACE See Rx Instructions .Route .MEDSUPPLY Qty: 1 0RF Rx Instructions: As directed (DME) JONNATHAN Knee Brace Misc See Rx Instructions .Route Qty: 1 0RF Rx Instructions: As directed Humira Pen 40 mg/0.8 mL pen injector kit 40 mg SUBCUT Q14D Qty: 2 5RF tramadol 50 mg tablet 50 mg PO Q8H PRN (Reason: pain) Qty: 60 0RF metformin 500 mg tablet extended release 24 hr 500 mg PO BID atorvastatin 20 mg tablet 20 mg PO BEDTIME omeprazole 40 mg capsule,delayed release(DR/EC) 40 mg PO QAM aspirin 81 mg Tablet,Delayed Release (Dr/Ec) 81 mg PO DAILY PRN (Reason: Chest Pain) Jardiance 25 mg tablet 25 mg PO QAM diclofenac sodium 75 mg tablet,delayed release (DR/EC) 75 mg PO Q12H PRN (Reason: pain) Qty: 20 0RF insulin glargine [Lantus Solostar U-100 Insulin] 100 unit/mL (3 mL) insulin pen 20 unit SUBCUT BID Qty: 15 0RF ramipril 2.5 mg capsule 2.5 mg PO DAILY gabapentin 300 mg capsule 300 mg PO TID albuterol sulfate 90 mcg/actuation HFA aerosol inhaler 1 - 2 puff INHALATION Q4H PRN (Reason: Shortness Of Breath) Ozempic 1 mg/dose (4 mg/3 mL) pen injector 1 mg SUBCUT Q7D sulfasalazine 500 mg tablet 500 mg PO BID Discharge Orders: Discharge ED (Routine); Ordered 07/04/23 Ordered By: Irving Kaur Referrals: Lauren Kaufman MD [Primary Care Provider] - Discharge Diet: Usual diet Discharge Activity: Resume usual activity Patient Instructions: Finger Laceration (ED) Activity Restrictions/Additional Instructions: Return July 10 for suture removal. Coding Level of Care Code ED Cell Phone Repair Technician for Aki Jimenez
== END 2023-07-04 15:53 | disposition home or self-care (01) ==
PROVIDERS: Emergency Provider Emergency Medicine; PCP Internal Medicine
DX: S61.210A Laceration without foreign body of right index finger without damage to nail, initial encounter (principal); S61.212A Laceration without foreign body of right middle finger without damage to nail, initial encounter; Z79.4 Long term (current) use of insulin; Z79.85 Long-term (current) use of injectable non-insulin antidiabetic drugs; Z79.84 Long term (current) use of oral hypoglycemic drugs; Z79.82 Long term (current) use of aspirin; I10 Essential (primary) hypertension; E11.42 Type 2 diabetes mellitus with diabetic polyneuropathy; W31.89XA Contact with other specified machinery, initial encounter
CPT/HCPCS: 12001; 12042; 99283; A6446; J3490

== ENCOUNTER → 2023-07-14 08:09 | Outpatient (BNVA) | payer MEDICARE, MEDICAID, SELFPAY | PROVIDERS: PCP Internal Medicine; Visit Provider Physician Assistant | DX: M17.0 Bilateral primary osteoarthritis of knee (principal); M23.304 Other meniscus derangements, unspecified medial meniscus, left knee | CPT/HCPCS: 73560; 73565; 99213 ==

== ENCOUNTER 2023-08-09 06:45 | Outpatient (CLI) | payer MEDICARE, MEDICAID, SELFPAY ==
--- NOTE | 2023-08-09 07:15 | MR_ITS ---
WS: [id number] MRI LEFT KNEE NONCONTRAST TECHNIQUE: Axial PD, coronal PD fat sat, coronal PD, sagittal PD, and sagittal PD fat-sat images obta ined. CLINICAL INFORMATION: left knee pain/injury COMPARISON: MRI 09/12/2019 FINDINGS: Moderate tricompartment arthritis. Distal quadriceps and patella tendons are intact. ACL and PCL appe ar intact. Moderate chondromalacia patella worse involving the lateral patellar facet. Small amount o f prepatellar and infrapatellar soft tissue edema. Medial and lateral patellar retinaculum appear int act. Normal medial collateral ligament. Normal lateral collateral ligament. Normal popliteus. Biceps femoris appears intact. Normal popliteal fossa. Grade III chondromalacia medial and lateral joint compartments. No significant subchondral edema. Mahnaz r full-thickness small cartilage defect involving the lateral tibial plateau similar to previous. No subchondral edema. Fibular head appears normal. Chronic thinning of the medial and lateral meniscus. Chronic intrasubstance signal abnormality in the posterior horn medial meniscus similar to previous. Suspected small horizontal tear involving the posterior horn medial meniscus MR/MR knee LT wo con* [id number] IMPRESSION: 1. ACL and PCL appear intact. 2. Moderate tricompartment arthritis with grade III chondromalacia. 3. Moderate chondromalacia patella worse involving the lateral patellar facet. No subchondral edema. 4. Horizontal tear involving the posterior horn medial meniscus with chronic t hinning. This is similar to previous. 5. Small amount of prepatellar and infrapatellar soft tissue edema. Outbridge grading: grade III: partial-thickness cartilage loss with focal ulcer ation
== END 2023-08-09 06:46 | disposition home or self-care (01) ==
LOC: RAD 06:45
PROVIDERS: PCP Internal Medicine; Visit Provider Physician Assistant
DX: M25.562 Pain in left knee (principal); M23.304 Other meniscus derangements, unspecified medial meniscus, left knee; M17.12 Unilateral primary osteoarthritis, left knee; M94.262 Chondromalacia, left knee; M23.222 Derangement of posterior horn of medial meniscus due to old tear or injury, left knee
CPT/HCPCS: 73721

== ENCOUNTER 2023-08-21 08:22 | Emergency (ER) | payer MEDICARE, MEDICAID, SELFPAY ==
[2023-08-21 08:38] VITALS: BP 129/70; PULSE 73; TEMP 36.5; O2SAT 96; BMI 31.4
--- NOTE | 2023-08-21 08:50 | ED_ITS ---
HPI - Extremity Problem General: Chief complaint: Extremity Injury, Upper Stated complaint: right hand finger injury Time Seen by Provider: 08/21/23 08:46 Source: patient Mode of arrival: ambulatory Limitations: no limitations History of Present Illness: This patient presents to the emergency department because he injured his right index finger this morning approximately 2 hours prior to arrival. He states he was turning over in bed and jammed his finger against a coffee table. He denies any other trauma. He is right-handed. He states he injured his same finger approximately 2 to 3 weeks ago when he struck portion of the deck of his lawn more. MD Complaint: extremity pain Pain Consistency: constant Location: right and upper extremity Review of Systems General: Reports: 10 or more systems reviewed and unremarkable except in HPI and below PFSH ED PFSH: Medical History Immunization counseling High risk medication use Osteoarthritis of knees, bilateral Inflammatory arthritis Hypertension Polyneuropathy due to type 2 diabetes mellitus Onycholysis of toenail Surgical History History of amputation of great toe Family History Mother Diabetes Denies family history of Lupus (systemic lupus erythematosus) Rheumatoid arthritis CAD (coronary artery disease) Clotting disorder Dementia Hyperlipidemia Psychiatric illness Chronic kidney disease (CKD) Suicide Anesthesia complication Bleeding disorder Family history of premature coronary artery disease Lung disease Cancer Hypertension Stroke Social History Smoking and tobacco/nicotine status: never used tobacco/nicotine Alcohol intake: never Substance/Drug Use: never Current occupational status: disabled Physical Exam Narrative: EXAM NARRATIVE: He is alert and appears to be in no acute distress. He is cooperative. Const: COMMON NORMALS: no acute distress, average body habitus and patient oriented x3 GENERAL APPEARANCE: cooperative and comfortable HENMT: COMMON NORMALS: normocephalic HEAD & SCALP: normocephalic Eye: COMMON NORMALS: Equal, round and reactive pupils present PUPIL: Yes Equal, round and reactive pupils present Neck/C-Spine: COMMON NORMALS: full ROM Resp: COMMON NORMALS: normal respiratory effort EFFORT & INSPECTION: Yes able to speak in complete sentences Cardio: COMMON NORMALS: Peripheral pulses 2+ throughout PERIPHERAL PULSES: Peripheral pulses 2+ throughout Back/Pelvis: COMMON NORMALS: thoraco-lumbar ROM normal Extremity: NARRATIVE EXTREMITY EXAM: Examination with attention to his right hand reveals area of ecchymosis in the subungual region of his right index finger which is approximately 30% of the nail surface area. Appears to be old. There is no deformity of the right index finger. He has tenderness to AP compression and lateral compression of the DIP joint. He has normal-appearing finger approximately as well as hand and wrist and forearm. Normal range of motion at all joints of the right upper extremity. Neurovascular intact with good capillary refill and sensation. Neuro: COMMON NORMALS: patient oriented x3, moves all extremities, no focal motor deficits and no sensory deficits noted Skin: COMMON NORMALS: no rashes or lesions noted GENERAL SKIN EXAM: no rashes or lesions noted Course Reevaluation(s): Reevaluation #1: Patient has no new or focal findings. I informed him of my interpretation of his hand x-ray that was unremarkable at this time. Discussed delayed radiology interpretation potential as well as return precautions. Time: 09:53 Vital Signs: Vital signs: Vital Signs Temperature 97.7 F 08/21/23 08:38 Pulse Rate 73 08/21/23 08:38 Blood Pressure 141/86 08/21/23 09:50 Pulse Oximetry 96 08/21/23 09:50 Oxygen Delivery Me thod Room Air 08/21/23 08:38 MDM - Extremity (Nontraumatic) Medical Decision Making Patient suffered a direct blow to the right index finger as per the HPI. Differential included occult fracture, contusion, joint dislocation although the latter is extremely unlikely given his reassuring clinical examination. Imaging obtained which did not reveal any evidence of fracture dislocation etc. He is stable to be discharged with symptomatic care. We also discussed return precautions. All radiology interpretation(s) finalized by discharge ED provider radiology interpretation(s): No obvious fracture Discharge Plan Discharge Patient Disposition: Home Clinical Impression: Contusion of right index finger Qualifiers: Encounter type: initial encounter Damage to nail status: without damage Qualified Code(s): S60.021A - Contusion of right index finger without damage to nail, initial encounter Condition: Stable Prescriptions: No Action epinephrine 0.15 mg/0.3 mL auto-injector 0.15 mg IM Q30M PRN (Reason: Allergy Symptoms) Rx Instructions: do not exceed 12 doses per 24 hrs (DME) Diabetic shoes See Rx Instructions .ROUTE .MEDSUPPLY Qty: 1 0RF Rx Instructions: With 3 pairs of inserts by the shoe shaw allopurinol 100 mg tablet 100 mg PO QAM (DME) Diabetic Shoes with 3 sets of insoles See Rx Instructions .Route .MEDSUPPLY Qty: 1 0RF Rx Instructions: As directed by HOME (DME) biateral wrist braces See Rx Instructions .Route .MEDSUPPLY Qty: 1 0RF Rx Instructions: As directed (DME) RIGHT WRIST BRACE See Rx Instructions .Route .MEDSUPPLY Qty: 1 0RF Rx Instructions: As directed (DME) JONNATHAN Knee Brace Misc See Rx Instructions .Route Qty: 1 0RF Rx Instructions: As directed tramadol 50 mg tablet 50 mg PO Q8H PRN (Reason: pain) Qty: 60 0RF Humira Pen 40 mg/0.8 mL pen injector kit 40 mg SUBCUT .Q7days Qty: 2 5RF metformin 500 mg tablet extended release 24 hr 500 mg PO BID atorvastatin 20 mg tablet 20 mg PO BEDTIME omeprazole 40 mg capsule,delayed release(DR/EC) 40 mg PO QAM aspirin 81 mg Tablet,Delayed Release (Dr/Ec) 81 mg PO DAILY PRN (Reason: Chest Pain) Jardiance 25 mg tablet 25 mg PO QAM diclofenac sodium 75 mg tablet,delayed release (DR/EC) 75 mg PO Q12H PRN (Reason: pain) Qty: 20 0RF insulin glargine [Lantus Solostar U-100 Insulin] 100 unit/mL (3 mL) insulin pen 20 unit SUBCUT BID Qty: 15 0RF ramipril 2.5 mg capsule 2.5 mg PO DAILY gabapentin 300 mg capsule 300 mg PO TID albuterol sulfate 90 mcg/actuation HFA aerosol inhaler 1 - 2 puff INHALATION Q4H PRN (Reason: Shortness Of Breath) Ozempic 1 mg/dose (4 mg/3 mL) pen injector 1 mg SUBCUT Q7D sulfasalazine 500 mg tablet 500 mg PO BID Discharge Orders: Discharge ED (Routine); Ordered 08/21/23 Ordered By: Elfego Faye Referrals: Lauren Kaufman MD [Primary Care Provider] - Discharge Diet: Usual diet Discharge Activity: Increase activity as tolerated Patient Instructions: Opioid Safety, Pain Management Activity Restrictions/Additional Instructions: As we discussed your x-ray of your hand and finger do not show any obvious injury today. These will be reviewed by the radiologist as well. If there is any change in the management we will contact you. We recommend continue using as you tolerated. You may apply an ice pack to the area of soreness for 10 to 15 minutes 3-4 times daily. If you are still having discomfort pain or disability after 3 to 5 days or worsens at any time you are welcome to return for reevaluation otherwise follow-up with your regular doctor. 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
--- NOTE | 2023-08-21 08:50 | XRR_ITS ---
PROCEDURE INFORMATION: Exam: XR Right Hand Exam date and time: 08/21/2023 9:15 AM Age: 63 years old Clinical indication: Injury or trauma; Other: Continued pain from previous injury; Blunt trauma (contusions or hematomas); Injury details: PT arrives pov C/O right index finger pain. PT states that he initially injured it on 07/04/23 and had to get stiches which have since been removed. PT reports constant pain in the finger and has worsened with him jamming it all the time; Last time hitting it this morning into a coffee table. PT has some redness and black spot under the top nail on right index finger with healed scar. Prior surgery; Surgery date: 6+ months; Surgery type: Right carpal tunnel; Additional info: Index finger injury TECHNIQUE: Imaging protocol: Radiologic exam of the right hand. Views: 3 or more views. COMPARISON: No relevant prior studies available. FINDINGS: Bones/joints: No fracture or dislocation is appreciated. There is joint space narrowing with osteophyte formation most pronounced involving the 1st carpometacarpal joint and to a lesser degree the IP joints. Bony mineralization is normal. Soft tissues: Normal. XR/XR hand RT min 3V* 17200 IMPRESSION: 1. Osteoarthritis.
[2023-08-21 09:50] VITALS: BP 141/86; O2SAT 96
[2023-08-21 09:56] VITALS: BP 139/97; PULSE 70; RESP 16; O2SAT 97
== END 2023-08-21 10:00 | disposition home or self-care (01) ==
PROVIDERS: Emergency Provider Emergency Medicine; PCP Internal Medicine
DX: S60.021A Contusion of right index finger without damage to nail, initial encounter (principal); Z79.85 Long-term (current) use of injectable non-insulin antidiabetic drugs; Z79.84 Long term (current) use of oral hypoglycemic drugs; Z79.82 Long term (current) use of aspirin; Z79.4 Long term (current) use of insulin; I10 Essential (primary) hypertension; E11.42 Type 2 diabetes mellitus with diabetic polyneuropathy; W22.09XA Striking against other stationary object, initial encounter
CPT/HCPCS: 73130; 99283

== ENCOUNTER → 2023-08-23 08:31 | Outpatient (BNVA) | payer MEDICARE, MEDICAID, SELFPAY | PROVIDERS: PCP Internal Medicine; Visit Provider Student in an Organized Health Care Education/Training Program | DX: Z98.890 Other specified postprocedural states (principal) | CPT/HCPCS: 99213 ==

== ENCOUNTER → 2023-08-26 08:06 | Outpatient (BNVA) | payer MEDICARE, MEDICAID, SELFPAY | PROVIDERS: PCP Internal Medicine; Visit Provider Physician Assistant | DX: G56.02 Carpal tunnel syndrome, left upper limb; G56.22 Lesion of ulnar nerve, left upper limb; M17.0 Bilateral primary osteoarthritis of knee; S83.242A Other tear of medial meniscus, current injury, left knee, initial encounter; X58.XXXA Exposure to other specified factors, initial encounter | CPT/HCPCS: 20610; 99214; J3301 ==

== ENCOUNTER → 2023-08-29 08:02 | Outpatient (BNVA) | payer MEDICARE, MEDICAID, SELFPAY | PROVIDERS: PCP Internal Medicine; Visit Provider Podiatrist Foot & Ankle Surgery | DX: E11.42 Type 2 diabetes mellitus with diabetic polyneuropathy (principal); I73.9 Peripheral vascular disease, unspecified; L60.3 Nail dystrophy; Z79.4 Long term (current) use of insulin; Z79.84 Long term (current) use of oral hypoglycemic drugs | CPT/HCPCS: 11721 ==

== ENCOUNTER → 2023-09-15 07:06 | Outpatient (BNVA) | payer MEDICARE, MEDICAID, SELFPAY | PROVIDERS: PCP Internal Medicine; Visit Provider Podiatrist Foot & Ankle Surgery | DX: E11.42 Type 2 diabetes mellitus with diabetic polyneuropathy (principal); L60.0 Ingrowing nail; Z79.4 Long term (current) use of insulin; Z79.84 Long term (current) use of oral hypoglycemic drugs | CPT/HCPCS: 11750 ==

== ENCOUNTER → 2023-09-29 06:59 | Outpatient (BNVA) | payer MEDICARE, MEDICAID, SELFPAY | PROVIDERS: PCP Internal Medicine; Visit Provider Podiatrist Foot & Ankle Surgery | DX: Z98.890 Other specified postprocedural states (principal); L60.3 Nail dystrophy | CPT/HCPCS: 99213 ==

== ENCOUNTER → 2023-10-05 12:33 | Outpatient (BNVA) | payer MEDICARE, MEDICAID, SELFPAY | PROVIDERS: PCP Internal Medicine; Visit Provider Internal Medicine Rheumatology | DX: M17.0 Bilateral primary osteoarthritis of knee (principal); Z79.899 Other long term (current) drug therapy; G56.01 Carpal tunnel syndrome, right upper limb; Z71.85 Encounter for immunization safety counseling | CPT/HCPCS: 99214 ==

== ENCOUNTER 2023-10-13 06:58 | Day surgery (SDC) | payer MEDICARE, MEDICAID, SELFPAY ==
[2023-10-13] VITALS (8 sets, daily range): BP systolic 136–168; BP diastolic 79–99; PULSE 12–83; RESP 14–18; TEMP 36.2–36.6; O2SAT 96–99; BMI 31.4
--- NOTE | 2023-10-13 07:19 | P.ANESASSM_ITS ---
Pre-Anesthetic Assessment Height/Weight: Height 5 ft 11 in Operation Date: 10/13/23 09:35 Proposed Procedures p Carpal Tunnel Release - Revision(Left) - Jacky Willie, DO s Cubital Tunnel Release revision(Left) - Jacyk Alameda, DO s Ulnar Nerve Transposition possible(Left) - Jacky Willie, DO Social No alcohol and No tobacco Exam alert, oriented x 3, clear to auscultation bilaterally and regular rate & rhythm Airway Submandibular: within normal limits Cervical ROM: within normal limits Mallampati: Class II Dentition: false and other (Edentulous) Anesthetic Plan ASA status: 3 Anesthesia: MAC Other: No prior issues with anesthesia NPO since midnight Hypertension on ramipril Rheumatoid arthritis, no neck issues Type 2 diabetes on insulin, will check a.m. BS Denies any pulmonary issues METs greater than 4 Plan for MAC anesthetic with peripheral nerve block Medications/Allergies Home Medications Medication Instructions Recorded Confirmed Last Taken Type metformin 500 mg tablet,extended 500 mg PO BID 08/21/19 10/13/23 10/12/23 History release 24 hr Diabetic Shoes with 3 sets of #1 ea 04/08/22 10/05/23 03/08/23 Rx insoles allopurinol 100 mg tablet 100 mg PO QAM 05/24/22 10/13/23 10/12/23 History aspirin 81 mg tablet,delayed 81 mg PO DAILY PRN Chest Pain 08/22/22 10/13/23 10/10/23 History release atorvastatin 20 mg tablet 20 mg PO BEDTIME 08/22/22 10/13/23 10/12/23 History empagliflozin 25 mg tablet 25 mg PO QAM 08/22/22 10/13/23 10/12/23 History (Jardiance) omeprazole 40 mg capsule,delayed 40 mg PO QAM 08/22/22 10/13/23 10/12/23 History release biateral wrist braces #1 ea 09/21/22 10/05/23 03/08/23 Rx epinephrine 0.15 mg/0.3 mL 0.15 mg IM Q30M PRN Allergy 11/24/22 10/13/23 03/08/23 History injection,auto-injector Symptoms leg brace (JONNATHAN Knee Brace) #1 ea 01/13/23 10/05/23 03/08/23 Rx RIGHT WRIST BRACE #1 ea 02/04/23 10/05/23 03/08/23 Rx Diabetic shoes #1 ea 03/08/23 10/05/23 03/08/23 Rx albuterol sulfate 90 mcg/actuation 1 - 2 puff inhalation Q4H PRN 07/04/23 10/13/23 Unknown History aerosol inhaler Shortness Of Breath gabapentin 300 mg capsule 300 mg PO TID 07/04/23 10/13/23 10/12/23 History ramipril 2.5 mg capsule 2.5 mg PO DAILY 07/04/23 10/13/23 10/12/23 History semaglutide 1 mg/dose (4 mg/3 mL) 1 mg SUBCUT Q7D 07/04/23 10/13/23 09/27/23 History subcutaneous pen injector (Ozempic) tramadol 50 mg tablet 50 mg PO Q8H PRN pain #60 tabs 09/07/23 10/13/23 Unknown Rx adalimumab 40 mg/0.8 mL 40 mg (0.8 mL) SUBCUT .Q7days #4 ea 10/05/23 10/13/23 10/03/23 Rx subcutaneous pen kit (Humira Pen) sulfasalazine 500 mg tablet 500 mg PO BID #60 tabs 10/05/23 10/13/23 10/12/23 Rx insulin glargine 100 unit/mL (3 20 unit SUBCUT DAILY 10/11/23 10/13/23 10/12/23 History mL) subcutaneous pen (Lantus Solostar U-100 Insulin) Allergies Allergy/AdvReac Type Severity Reaction Status Date / Time insect venom Allergy ALGY-Anaphy Verified 10/13/23 07:07 laxis [facility] Anesthesia Medical History Immunization counseling High risk medication use Osteoarthritis of knees, bilateral Inflammatory arthritis Hypertension Polyneuropathy due to type 2 diabetes mellitus Onycholysis of toenail Surgical History History of amputation of great toe Family History Mother Diabetes Denies family history of Lupus (systemic lupus erythematosus) Rheumatoid arthritis CAD (coronary artery disease) Clotting disorder Dementia Hyperlipidemia Psychiatric illness Chronic kidney disease (CKD) Suicide Anesthesia complication Bleeding disorder Family history of premature coronary artery disease Lung disease Cancer Hypertension Stroke Social History Smoking and tobacco/nicotine status: unknown if used tobacco/nicotine Alcohol intake: never Substance/Drug Use: never Current occupational status: disabled Data Anesthesia Cardiac Studies: Echocardiogram 09/16/22
[2023-10-13] MEDS: sodium chloride 0.9% 1,000 ML 30 ML IV (07:25)
[2023-10-13] MEDS: ketorolac 30 mg/mL INJ IVP (07:26)
[2023-10-13] MEDS: scopolamine 1.5 Patch 1 PATCH TRANSDERMA (07:26)
[2023-10-13] MEDS: acetaminophen 1,000 MG/100 ML PIGGYBACK 400 MG IV (07:26)
--- NOTE | 2023-10-13 07:41 | W.PM.OPSFHP ---
Same Day Surgery H&P Indication for Procedure/HPI DATE OF PROCEDURE: October 13, 2023 CHIEF COMPLAINT/INDICATIONFOR SURGICAL PROCEDURE: Left carpal tunnel syndrome left cubital tunnel syndrome recurrent PREOP DIAGNOSIS: Left carpal tunnel syndrome, left cubital tunnel syndrome recurrent PLANNED PROCEDURE: Operation Date: 10/13/23 09:35 Proposed Procedures p Carpal Tunnel Release - Revision(Left) - Jacky Tapia DO s Cubital Tunnel Release revision(Left) - Jacky Tapia DO s Ulnar Nerve Transposition possible(Left) - Jacky Tapia DO Medications/Allergies* Home Medications Medication Instructions Recorded Confirmed Type metformin 500 mg tablet,extended 500 mg PO BID 08/21/19 10/13/23 History release 24 hr allopurinol 100 mg tablet 100 mg PO QAM 05/24/22 10/13/23 History aspirin 81 mg tablet,delayed 81 mg PO DAILY PRN Chest Pain 08/22/22 10/13/23 History release atorvastatin 20 mg tablet 20 mg PO BEDTIME 08/22/22 10/13/23 History empagliflozin 25 mg tablet 25 mg PO QAM 08/22/22 10/13/23 History (Jardiance) omeprazole 40 mg capsule,delayed 40 mg PO QAM 08/22/22 10/13/23 History release epinephrine 0.15 mg/0.3 mL 0.15 mg IM Q30M PRN Allergy 11/24/22 10/13/23 History injection,auto-injector Symptoms albuterol sulfate 90 mcg/actuation 1 - 2 puff inhalation Q4H PRN 07/04/23 10/13/23 History aerosol inhaler Shortness Of Breath gabapentin 300 mg capsule 300 mg PO TID 07/04/23 10/13/23 History ramipril 2.5 mg capsule 2.5 mg PO DAILY 07/04/23 10/13/23 History semaglutide 1 mg/dose (4 mg/3 mL) 1 mg SUBCUT Q7D 07/04/23 10/13/23 History subcutaneous pen injector (Ozempic) insulin glargine 100 unit/mL (3 20 unit SUBCUT DAILY 10/11/23 10/13/23 History mL) subcutaneous pen (Lantus Solostar U-100 Insulin) Allergies/Adverse Reactions Allergy/AdvReac Type Severity Reaction Status Date / Time insect venom Allergy ALGY-Anaphy Verified 10/13/23 07:07 laxis Current Medications: Generic Name Dose Route Start Last Admin Trade Name Diana PRN Reason Stop Dose Admin Sodium Chloride 1,000 mls @ 30 mls/hr 10/13/23 07:15 10/13/23 07:25 Sodium Chloride 0.9% IV 10/14/23 07:14 30 mls/hr .Q24H LILO Administration Pertinent History/Comorbid Conditions* Medical History (Updated 08/29/23 @ 00:01 by EMMA Reis) Immunization counseling High risk medication use Osteoarthritis of knees, bilateral Inflammatory arthritis Hypertension Polyneuropathy due to type 2 diabetes mellitus Onycholysis of toenail Surgical History (Updated 03/27/19 @ 08:10 by Tom Carrillo DPM) History of amputation of great toe Family History (Updated 11/24/22 @ 08:44 by Vira Orozco LPN) Diabetes Mother Denies family history of Lupus (systemic lupus erythematosus) Rheumatoid arthritis CAD (coronary artery disease) Clotting disorder Dementia Hyperlipidemia Psychiatric illness Chronic kidney disease (CKD) Suicide Anesthesia complication Bleeding disorder Family history of premature coronary artery disease Lung disease Cancer Hypertension Stroke Social History Smoking and tobacco/nicotine status: unknown if used tobacco/nicotine Alcohol intake: never Substance/Drug Use: never Current occupational status: disabled Pertinent Exam Findings alert, oriented x 3, operative site marked and procedure specific exam findings Please refer to detailed orthopedic examination dating on 08/25/2023: Left Hand exam-positive Tinel's and positive Phalen's test. No thenar atrophy and no weakness detected. Full range of motion in fingers and wrist and fingers are warm and well-perfused with normal cap refill under 2 seconds. Radial pulse 2+, No intrinsic muscle weakness noted. Previous carpal and cubital incisions are well-healed no signs of infection Recommendations Surgery/Procedure today Other Plans: Plan proceed to the OR today for Revision Left Carpal Tunnel release and Revision Left Cubital tunnel release with possible ulnar nerve transposition. Patient understands the ins and outs procedure risk benefits complication alternatives surgery through shared decision makers proceed with surgical intervention all questions answered at this time. He underwent same procedure on his right side and satisfied with his results would like to proceed with the left side. All questions answered. Coding Level of Care Code Acute Code for niels Fwedward
[2023-10-13 07:44] LABS: Basophils # 0.1 10^3/uL (0.0-0.1); Basophils % 1.2 %; Eosinophils # 0.2 10^3/uL (0.0-0.8); Eosinophils % 2.9 %; Hematocrit 46.4 % (37-53); Lymphocytes # 1.7 10^3/uL (0.8-4.8); Lymphocytes % 25.5 %; Mean Corpuscular HGB Conc 33.6 g/dL (30-55); Mean Corpuscular Hemoglobin 31.1 pg (27-33); Mean Corpuscular Volume 92.6 fl (82-101); Mean Platelet Volume 11.4 fL (7.4-10.4); Monocytes # 0.6 10^3/uL (0.2-0.9); Monocytes % 9.3 %; Neutrophils # 3.94 10^3/uL (1.8-7.7); Neutrophils % 60.3 %; Nucleated Red Blood Cells % 0 %; Platelet Count 174 10^3/cmm (157-399); Red Blood Count 5.01 10^6/uL (3.85-5.65); Red Cell Distribution Width 14.6 % (12.1-15.1); White Blood Count 6.54 10^3/uL (3.29-11.43)
--- NOTE | 2023-10-13 07:45 | ANES.PROC ---
Anesthesia Procedures Procedure/Date: 10/13/23 Nerve Block ^: Nerve Block 1: Main Anesthesia: other (100mcg fentanyl and 2mg versed) Time Out Performed: Yes Consent: requested by attending/covering physician and from patient Nerve block location: supraclavicular Anesthesia monitors applied: pulse oximetry, EKG, BP cuff and oxygen Nerve block position: semi sitting Anesthetic Used: ropivicaine 0.5% Amount of anesthesia used (mL): 25 Ultrasound used to: recognize landmarks Interscalene/Femoral BLK: 4 stimuplex 21 g needle used for position and inplane approach Injection: neg aspiration of heme Patient Tolerated Procedure: well Complications: none Additional Comments: decadron 4mg added
[2023-10-13 07:57] LABS: Alanine Aminotransferase 19 U/L (0-41); Albumin Level 4.1 g/dL (3.5-5.2); Alkaline Phosphatase 85 U/L (40-130); Aspartate Amino Transferase 21 U/L (0-40); Blood Urea Nitrogen 14 mg/dL (8-23); Calcium 8.7 mg/dL (8.5-10.5); Carbon Dioxide 23 mmol/L (22-29); Chloride 109 mmol/L (98-107); Glucose 123 mg/dL (65-115); Osmolality Calculated 300 mOsm/kg (285-295); Sodium 144 mmol/L (136-145); Total Bilirubin 0.7 mg/dL (0.15-1.2); Total Protein 7.1 g/dL (6.6-8.7)
[2023-10-13] MEDS: ceFAZolin 2,000 MG in sodium chloride 0.9% (plus) 50 ML 100 MG IV (08:25)
--- NOTE | 2023-10-13 10:04 | P.OP_ITS ---
Operative Report Date of procedure: October 13, 2023 Surgeon: Jacky Tapia DO Procedure: Preoperative diagnosis: Recurrent left carpal tunnel syndrome, recurrent left cubital tunnel syndrome post-op diagnosis:? Recurrent left carpal tunnel syndrome and?Left?cubital tunnel syndrome and subluxating ulnar nerve Post-op findings: See operative note Procedure done: Left carpal tunnel release revision Left cubital tunnel release revision Left ulnar nerve transposition Surgeon: Jacky Tapia DO Estimated blood?loss: 15 cc Tourniquet Time: 56 minutes IV fluids: See anesthesia record Complications: None Findings: See operative report narrative Condition: stable Disposition: same day Brief History: Patient is a pleasant 63-year-old Male was seen evaluated in the outpatient setting for?Left ulnar nerve neuropathy at the elbow and?Left carpal tunnel syndrome. Patient had history of left carpal and cubital release and this had recurrence of symptoms. 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 ?On my examination in the office patient findings are consistent with this preoperative diagnosis. We had detailed discussion in office about continued nonoperative intervention versus operative intervention.? Patient understands the risk benefits complications alternatives to surgical and nonsurgical treatment options.? Patient understands the risks include but not?limited to make it better, make it worse, infection, permanent injury to nerve, decreased function and sensation to the hand with persistent weakness.? Given these risks patient understands and agrees to proceed with current plan.? Patient elects to proceed with a surgical intervention. All questions answered. Plan to proceed to the OR for Revision Left Carpal Tunnel release and Revision Left Cubital tunnel release with possible ulnar nerve transposition Procedure: Patient was seen and evaluated in the preoperative holding area.? The consent that was filled out in office was reviewed with patient. Correct extremity was then marked.? Patient was seen evaluated by the preoperative team as well as anesthesia department.? Once cleared for surgery patient was then taken to the operative suite and transported onto the operative table all bony prominences were well-padded and patient was secured to the table.??Left upper extremity was placed on an armboard.? Patient then underwent anesthesia per the anesthesia department. The?Left upper extremity tourniquet was applied. Patient's?Left upper extremity was then prepped and draped in standard orthopedic fashion.? This point a final timeout was performed. Patient received appropriate preop antibiotics. Esmarch tourniquet was used to exsanguinate the operative extremity and was insufflated to 250 mmHg.? I started with the carpal tunnel release first.? I utilized patient's previous carpal incision. I made a standard open carpal tunnel release starting with the distal most extent in the palm at the Gibson's cardinal?line and the incision?line was made in?line with the fourth ray and ended just distal to the wrist crease.? Sharp scalpel incision was made through skin and subcutaneous tissue I then utilizing self retainer then began to dissect with dissection scissors split?longitudinally the palmar fascia.? Next I then utilizing my chemistry research assistant Gabe retractors subsequently utilizing scalpel feathered through the palmaris brevis as well as through the transverse carpal?ligament distally.? Patient was once again found to have excessive scar and reforming of the transverse carpal ligament. Once I encountered the floor of the transverse carpal?ligament and entered into the carpal tunnel I then switched to dissection scissors.? Carefully released the distal extent of the transverse carpal?ligament to the palmar fat.? Care was to protect the recurrent branch and not injured this during this part of the case.? Next I then placed a [place] underneath the transverse carpal?ligament proximally to protect the nerve in the carpal tunnel contents.? And then I subsequently under?loupe magnification uti lize my dissection scissors to release the transverse carpal?ligament into the antebrachial fascia under direct visualization with care to keep my scissors with a curved ulnarly away from the palmar cutaneous branch.? The transverse carpal was then completely decompressed proximally and a [place] was then placed both distally and proximally throughout the carpal tunnel and had complete decompression of the nerve.? The nerve did appear to have hourglass shape as it went through the carpal tunnel as well as appear to be under pressure, with significant irritation noted around the nerve.? No masses were noted within the contents of the carpal tunnel.? This completed the carpal tunnel release and then I subsequently irrigated the wound bed and placed a wet Ray-Srinath into the incision for?later closure. Next I utilized patient's previous cubital tunnel incision over the left medial elbow. I did extend this slightly proximally and distally with plan given this being a revision case high likelihood is for scar as well as need for possible transposition. incision was made centering over the ulnar nerve between the medial epicondyle and olecranon process.? Sharp scalpel excision through skin and subcutaneous tissue was performed.? Once I encountered subcutaneous tissue I then utilized dissection scissors to spread in the path of the [facility] and care was made to protect any nerve branches throughout this case.? Patient had excessive scar tissue formation throughout the entire incision. As well as a recurrent thickening of the Parmar's ligament. I then utilized a scalpel to complete my dissection directly on over to the flexor pronator mass and elevated this fat tissue directly off of the fascia.? I started my dissection of the ulnar nerve the nerve proximally.? Once identified I then utilized?Monishar dissection scissors and decompress the nerve completely and proximally and utilized blunt dissection to make sure there was no entrapment proximally..? Once decompressed proximally I then traced the nerve distal through Parmar's?ligament and as it entered the FCU fascia aponeurosis and completed by decompression and ulnar nerve neurolysis distally.? The nerve was completely released in situ no areas of entrapment I was able to place my finger distally and proximally with no areas entrapment along the nerve.? At this point in time by in situ release was completed I then subsequently took the elbow through range of motion and subluxation was noted over the medial epicondyle as well as this being a revision case, and I subsequently elected to proceed for ulnar nerve?t ransposition.? ?I thoroughly irrigated the nerve throughout the case to prevent it from drying out. Of note the ulnar nerve had significant irritation and inflammation.? Next while protecting the nerve as well as care to not injure any venous structures I then excised the intermuscular septum proximally with bipolar electrocautery.? This allowed for there to be no entrapment proximally with my?transposition.? Next I then performed my standard Z- flap into the fascia.? This created a?large thick fascial band that would be sutured to secure the ulnar nerve when its been transposed.? Once the incision was made just through the fascia I then mobilized just the fascia and freed the muscle belly off of this.? I then sequentially excised the T and Y shaped fascial bands throughout the flexor pronator mass to prevent any type of bandage strip structure irritating the?transposition.? At this point I had only soft tissue and muscle belly with which the ulnar nerve could rest.? I had to do a small excision of the muscle belly distally to create a nice trough for the nerve to?lie.? At this point I then mobilized the nerve and this was transposed into the flexor pronator insertion under the fasica flaps anteriorly.? There was no evidence of kinking/tethering of the nerve.? this was significantly redundant and?lax with no signs of tension or entrapment.? I then utilized a 3-0 Ethibond suture and approximated the fascia flaps that was created and then secured with horizontal interrupted mattress stitches.? I was able to place 2 fingers under the repair with no evidence of entrapment and the elbow was taken through range of motion and no areas of entrapment or kinking were noted on the nerve and the nerve was redundant relaxed in all ranges of motion.? This completed ulnar nerve decompression of the?cubital tunnel as well as ulnar nerve?transposition.? Wound bed was then thoroughly irrigated.? Tourniquet was deflated.? Maintained exact hemostasis with bipolar electrocautery.? I did place a dexter drain to prevent hematoma formation. As result the skin was reapproximated with interrupted Vicryl subcutaneous suture 3-0.? I next utilized a running horizontal mattress stitch with 3-0 nylon.? Extremity was then cleaned and the incision was then covered with Xeroform 4 x 4's ABD Curlex and soft roll and a?long-arm posterior splint at 90 degrees was then applied with an Matt wrap.? Patient was then awakened from anesthesia and taken to PACU in stable condition. Disposition: Patient taken to PACU in stable condition.? Patient given appropriate discharge instructions as well as pain medication.? We will get Patient in with OT hand therapy for splint takedown dressing change and drain pull in the next 1 to 3 days. Patient will see orthopedics in 2 weeks.? pt understands? if they has any questions they can contact the office.
--- NOTE | 2023-10-13 10:04 | W.PM.BPON ---
Date of Procedure: 10/16/2023 Surgeon: Jacky Tapia DO Sewer Pipe Layer Helper(s): None Procedure(s) performed: Left carpal tunnel release revision Left cubital tunnel release revision Left ulnar nerve transposition Findings of the procedure(s): Patient was found to have recurrent left carpal tunnel syndrome and left cubital tunnel syndrome as well as unstable ulnar nerve and underwent ulnar nerve transposition. Placed in a long-arm splint and sling with Polaris drain and will be seen by OT hand therapy during the postoperative early course to have the drain removed and new dressing applied and an elbow splint custom thermoplastic made for the patient. Estimated blood loss: 15 mL Specimen(s) removed: None Post-operative diagnosis: Recurrent left carpal tunnel syndrome, left cubital tunnel syndrome and subluxating ulnar nerve
--- NOTE | 2023-10-13 11:27 | ANE.PACU2 ---
Inpatient post-anesthesia follow up: Airway intact: Yes Vital signs: Temperature 97.5 F Pulse Rate 67 Respiratory Rate 17 Blood Pressure 136/99 Pulse Oximetry 96 Oxygen Delivery Me thod Room Air Oxygen Flow Rate 4 Fraction of Inspir ed Oxygen Hydration adequate: Yes Nausea and vomiting: No Pain level: 1 Mental status: Baseline
[2023-10-14 05:39] LABS: Glucose Point of Care 114 mg/dL (70-110)
== END 2023-10-13 11:27 | disposition home or self-care (01) ==
PROVIDERS: PCP Internal Medicine; Visit Provider Student in an Organized Health Care Education/Training Program
PROC: (CPT 64721; principal; 2023-10-13 09:35)
PROC: (CPT 64718; 2023-10-13 09:35)
PROC: (CPT 64718; 2023-10-13 09:35)
DX: G56.02 Carpal tunnel syndrome, left upper limb (principal); G56.22 Lesion of ulnar nerve, left upper limb; E11.42 Type 2 diabetes mellitus with diabetic polyneuropathy; I10 Essential (primary) hypertension; Z79.84 Long term (current) use of oral hypoglycemic drugs; Z79.899 Other long term (current) drug therapy; Z79.4 Long term (current) use of insulin
CPT/HCPCS: 64718; 64721; 36415; 36416; 80053; 82962; 85025; J0131; J0690; J1885; J2704; J7030

== ENCOUNTER 2023-10-14 09:50 | Outpatient (RCR) | payer MEDICARE, MEDICAID, SELFPAY | END 2023-11-07 23:59 | disposition home or self-care (01) | LOC: SOT 09:50 | PROVIDERS: Visit Provider Student in an Organized Health Care Education/Training Program | DX: G56.22 Lesion of ulnar nerve, left upper limb (principal); G56.02 Carpal tunnel syndrome, left upper limb | CPT/HCPCS: 97110; 97165; 97530; L3763 ==

== ENCOUNTER → 2023-10-27 08:21 | Outpatient (BNVA) | payer MEDICARE, MEDICAID, SELFPAY | PROVIDERS: Visit Provider Physician Assistant | DX: Z98.890 Other specified postprocedural states (principal) | CPT/HCPCS: 99024 ==

== ENCOUNTER 2023-11-01 07:11 | Outpatient (CLI) | payer MEDICARE, MEDICAID, SELFPAY ==
[2023-11-01 07:34] LABS: Basophils # 0.1 10^3/uL (0.0-0.1); Basophils % 1.7 %; Eosinophils # 0.2 10^3/uL (0.0-0.8); Eosinophils % 3.7 %; Hematocrit 46.7 % (37-53); Lymphocytes % 30.7 %; Mean Corpuscular Hemoglobin 30.6 pg (27-33); Mean Corpuscular Volume 92.8 fl (82-101); Mean Platelet Volume 11.1 fL (7.4-10.4); Monocytes # 0.8 10^3/uL (0.2-0.9); Neutrophils # 3.29 10^3/uL (1.8-7.7); Neutrophils % 51.4 %; Nucleated Red Blood Cells % 0 %; Platelet Count 197 10^3/cmm (157-399); Red Blood Count 5.03 10^6/uL (3.85-5.65); White Blood Count 6.41 10^3/uL (3.29-11.43)
[2023-11-01 07:40] LABS: Erythrocyte Sedimentation Rate 7 mm/hr (0-10)
[2023-11-01 07:47] LABS: Alanine Aminotransferase 26 U/L (0-41); Albumin Level 4.4 g/dL (3.5-5.2); Alkaline Phosphatase 97 U/L (40-130); Aspartate Amino Transferase 21 U/L (0-40); Globulin 2.8 g/dL (1.3-4.6); Glomerular Filtration Rate 67.4 mL/min (90-130); Total Bilirubin 0.5 mg/dL (0.15-1.2); Total Protein 7.2 g/dL (6.6-8.7)
== END 2023-11-01 07:12 | disposition home or self-care (01) ==
PROVIDERS: Visit Provider Internal Medicine Rheumatology
DX: Z79.899 Other long term (current) drug therapy (principal); M19.90 Unspecified osteoarthritis, unspecified site
CPT/HCPCS: 36415; 80076; 82565; 85025; 85651; 86140

== ENCOUNTER 2023-11-08 06:30 | Outpatient (RCR) | payer MEDICARE, MEDICAID, SELFPAY | END 2023-12-08 23:59 | disposition home or self-care (01) | LOC: SOT 06:30 | PROVIDERS: Visit Provider Student in an Organized Health Care Education/Training Program | DX: G56.02 Carpal tunnel syndrome, left upper limb (principal); G56.22 Lesion of ulnar nerve, left upper limb | CPT/HCPCS: 97110; 97140 ==

== ENCOUNTER → 2023-11-25 07:46 | Outpatient (BNVA) | payer MEDICARE, MEDICAID, SELFPAY | PROVIDERS: Visit Provider Physician Assistant | DX: R03.0 Elevated blood-pressure reading, without diagnosis of hypertension (principal); M17.0 Bilateral primary osteoarthritis of knee | CPT/HCPCS: 20610; 99213; J3301 ==

== ENCOUNTER → 2023-11-29 06:53 | Outpatient (BNVA) | payer MEDICARE, MEDICAID, SELFPAY | PROVIDERS: PCP Internal Medicine; Visit Provider Podiatrist Foot & Ankle Surgery | DX: L60.3 Nail dystrophy (principal); E11.42 Type 2 diabetes mellitus with diabetic polyneuropathy; L60.0 Ingrowing nail; I73.9 Peripheral vascular disease, unspecified; Z79.4 Long term (current) use of insulin; Z79.84 Long term (current) use of oral hypoglycemic drugs | CPT/HCPCS: 11721; 11730; 11750 ==

== ENCOUNTER → 2023-12-22 13:45 | Outpatient (BNVA) | payer MEDICARE, MEDICAID, SELFPAY | PROVIDERS: PCP Internal Medicine; Visit Provider Podiatrist Foot & Ankle Surgery | DX: E11.42 Type 2 diabetes mellitus with diabetic polyneuropathy (principal); I73.9 Peripheral vascular disease, unspecified; L60.3 Nail dystrophy; L60.0 Ingrowing nail; Z79.4 Long term (current) use of insulin; Z79.84 Long term (current) use of oral hypoglycemic drugs | CPT/HCPCS: 99213 ==

== ENCOUNTER → 2024-01-11 08:18 | Outpatient (BNVA) | payer MEDICARE, MEDICAID, SELFPAY | PROVIDERS: PCP Internal Medicine; Visit Provider Podiatrist Foot & Ankle Surgery | DX: S90.512A Abrasion, left ankle, initial encounter (principal); E11.42 Type 2 diabetes mellitus with diabetic polyneuropathy; W60.XXXA Contact with nonvenomous plant thorns and spines and sharp leaves, initial encounter; Z79.84 Long term (current) use of oral hypoglycemic drugs; Z79.4 Long term (current) use of insulin | CPT/HCPCS: 99213 ==

== ENCOUNTER → 2024-01-25 06:57 | Outpatient (BNVA) | payer MEDICARE, MEDICAID, SELFPAY | PROVIDERS: PCP Internal Medicine; Visit Provider Podiatrist Foot & Ankle Surgery | DX: S90.512A Abrasion, left ankle, initial encounter (principal); E11.42 Type 2 diabetes mellitus with diabetic polyneuropathy; W60.XXXA Contact with nonvenomous plant thorns and spines and sharp leaves, initial encounter; Z79.84 Long term (current) use of oral hypoglycemic drugs; Z79.4 Long term (current) use of insulin | CPT/HCPCS: 99213 ==

== ENCOUNTER 2024-01-31 11:13 | Outpatient (CLI) | payer MEDICARE, MEDICAID, SELFPAY ==
[2024-01-31 11:28] LABS: Basophils # 0.1 10^3/uL (0.0-0.1); Basophils % 1.1 %; Eosinophils # 0.2 10^3/uL (0.0-0.8); Eosinophils % 2.9 %; Hematocrit 45.5 % (37-53); Lymphocytes # 1.9 10^3/uL (0.8-4.8); Mean Corpuscular HGB Conc 33.8 g/dL (30-55); Mean Corpuscular Hemoglobin 30.2 pg (27-33); Mean Corpuscular Volume 89.2 fl (82-101); Mean Platelet Volume 11.2 fL (7.4-10.4); Monocytes # 0.6 10^3/uL (0.2-0.9); Monocytes % 9.7 %; Neutrophils # 3.39 10^3/uL (1.8-7.7); Neutrophils % 54.8 %; Nucleated Red Blood Cells % 0 %; Platelet Count 179 10^3/cmm (157-399); Red Cell Distribution Width 13.6 % (12.1-15.1); White Blood Count 6.19 10^3/uL (3.29-11.43)
[2024-01-31 11:46] LABS: Erythrocyte Sedimentation Rate 8 mm/hr (0-10)
[2024-01-31 11:59] LABS: Alanine Aminotransferase 20 U/L (0-41); Albumin Level 4.2 g/dL (3.5-5.2); Alkaline Phosphatase 90 U/L (40-130); Aspartate Amino Transferase 19 U/L (0-40); Globulin 2.9 g/dL (1.3-4.6); Glomerular Filtration Rate 75.2 mL/min (90-130); Total Bilirubin 0.5 mg/dL (0.15-1.2); Total Protein 7.1 g/dL (6.6-8.7)
== END 2024-01-31 11:14 | disposition home or self-care (01) ==
PROVIDERS: PCP Internal Medicine; Visit Provider Internal Medicine Rheumatology
DX: Z79.899 Other long term (current) drug therapy (principal); M19.90 Unspecified osteoarthritis, unspecified site
CPT/HCPCS: 36415; 80076; 82565; 85025; 85651; 86140

== ENCOUNTER → 2024-02-20 07:28 | Outpatient (BNVA) | payer MEDICARE, MEDICAID, SELFPAY | PROVIDERS: PCP Internal Medicine; Visit Provider Podiatrist Foot & Ankle Surgery | DX: M79.672 Pain in left foot (principal); E11.42 Type 2 diabetes mellitus with diabetic polyneuropathy; L60.3 Nail dystrophy; S90.32XA Contusion of left foot, initial encounter; W00.0XXA Fall on same level due to ice and snow, initial encounter; I73.9 Peripheral vascular disease, unspecified; Q66.72 Congenital pes cavus, left foot; Q66.71 Congenital pes cavus, right foot; Z79.4 Long term (current) use of insulin; Z79.84 Long term (current) use of oral hypoglycemic drugs | CPT/HCPCS: 11721; 73630; 99213 ==

== ENCOUNTER → 2024-02-28 07:24 | Outpatient (BNVA) | payer MEDICARE, MEDICAID, SELFPAY | PROVIDERS: PCP Internal Medicine; Visit Provider Physician Assistant | DX: M17.0 Bilateral primary osteoarthritis of knee (principal) | CPT/HCPCS: 99213 ==

== ENCOUNTER → 2024-03-14 12:20 | Outpatient (BNVA) | payer MEDICARE, MEDICAID, SELFPAY | PROVIDERS: PCP Internal Medicine; Visit Provider Physician Assistant | DX: M17.0 Bilateral primary osteoarthritis of knee (principal) | CPT/HCPCS: 20610; 99213; J7318 ==

== ENCOUNTER → 2024-04-04 12:56 | Outpatient (BNVA) | payer MEDICARE, MEDICAID, SELFPAY | PROVIDERS: PCP Internal Medicine; Visit Provider Internal Medicine Rheumatology | DX: M17.0 Bilateral primary osteoarthritis of knee (principal); Z79.899 Other long term (current) drug therapy; M06.00 Rheumatoid arthritis without rheumatoid factor, unspecified site; M19.90 Unspecified osteoarthritis, unspecified site; G56.01 Carpal tunnel syndrome, right upper limb; Z71.85 Encounter for immunization safety counseling | CPT/HCPCS: 99214 ==

== ENCOUNTER → 2024-05-21 07:19 | Outpatient (BNVA) | payer MEDICARE, MEDICAID, SELFPAY | PROVIDERS: PCP Internal Medicine; Visit Provider Podiatrist Foot & Ankle Surgery | DX: E11.42 Type 2 diabetes mellitus with diabetic polyneuropathy (principal); I73.9 Peripheral vascular disease, unspecified; L60.3 Nail dystrophy; Q66.71 Congenital pes cavus, right foot; Q66.72 Congenital pes cavus, left foot; Z79.4 Long term (current) use of insulin | CPT/HCPCS: 11721 ==

== ENCOUNTER 2024-05-31 13:47 | Outpatient (CLI) | payer MEDICARE, MEDICAID, SELFPAY ==
[2024-05-31 14:17] LABS: Basophils # 0.1 10^3/uL (0.0-0.1); Basophils % 1.4 %; Eosinophils # 0.2 10^3/uL (0.0-0.8); Eosinophils % 1.8 %; Hematocrit 45.2 % (37-53); Lymphocytes # 1.8 10^3/uL (0.8-4.8); Lymphocytes % 21.9 %; Mean Corpuscular HGB Conc 32.7 g/dL (30-55); Mean Corpuscular Volume 88.5 fl (82-101); Mean Platelet Volume 10.8 fL (7.4-10.4); Monocytes # 0.8 10^3/uL (0.2-0.9); Monocytes % 8.9 %; Neutrophils # 5.53 10^3/uL (1.8-7.7); Neutrophils % 65.6 %; Nucleated Red Blood Cells % 0 %; Platelet Count 216 10^3/cmm (157-399); Red Blood Count 5.11 10^6/uL (3.85-5.65); Red Cell Distribution Width 14.6 % (12.1-15.1); White Blood Count 8.42 10^3/uL (3.29-11.43)
[2024-05-31 14:33] LABS: Alanine Aminotransferase 16 U/L (0-41); Albumin Level 4.2 g/dL (3.5-5.2); Alkaline Phosphatase 81 U/L (40-130); Aspartate Amino Transferase 22 U/L (0-40); Globulin 3.3 g/dL (1.3-4.6); Glomerular Filtration Rate 75.2 mL/min (90-130); Total Bilirubin 0.6 mg/dL (0.15-1.2); Total Protein 7.5 g/dL (6.6-8.7)
[2024-05-31 15:50] LABS: Erythrocyte Sedimentation Rate 28 mm/hr (0-10)
== END 2024-05-31 13:48 | disposition home or self-care (01) ==
LOC: LAB 13:51
PROVIDERS: PCP Internal Medicine; Visit Provider Internal Medicine Rheumatology
DX: R06.09 Other forms of dyspnea (principal); I10 Essential (primary) hypertension; Z79.82 Long term (current) use of aspirin; Z79.899 Other long term (current) drug therapy; R07.9 Chest pain, unspecified
CPT/HCPCS: 36415; 80076; 82565; 85025; 85651; 86140; 93005; 99204

== ENCOUNTER → 2024-06-13 14:24 | Outpatient (BNVA) | payer MEDICARE, MEDICAID, SELFPAY | PROVIDERS: PCP Internal Medicine; Visit Provider Physician Assistant | DX: M17.0 Bilateral primary osteoarthritis of knee (principal); M25.561 Pain in right knee; M25.562 Pain in left knee | CPT/HCPCS: 20610; 73560; 73565; 99213; J3301; J9999 ==

== ENCOUNTER 2024-06-15 08:23 | Outpatient (CLI) | payer MEDICARE, MEDICAID, SELFPAY ==
--- NOTE | 2024-06-15 | ECG_ITS ---
[facility] 2024-[facility]15 Pat Name: Lamberto Oliva Department: Room: Gender: Male Rock Loader: : 1960 Requested By: Timothy Sands Order Number: [id number] Burns MD: Timothy Sands M.D. Interpretive Statements LEXISCAN SESTAMIBI STRESS TEST Procedure: At the baseline, the blood pressure was 137/98 mmHg with a heart rate of 67 bpm. The electrocardiogram showed normal sinus rhythm, normal axis with normal ST and T's. The Lexiscan was infused over a period of 20 seconds. A total of 0.4 mg of Lexiscan was infused. The stress phase was continued for a total of 5 minutes. Heart rate was at the end of stress phase was 76 bpm and a blood pressure of 121/73 mmHg. The EKG at the peak infusion revealed normal sinus rhythm with no significant ST-T wave changes. Sestamibi was injected 20 seconds after the Lexiscan infusion. Blood pressure at the end of recovery phase was 122/76 mmHg with a heart rate of 73 bpm. Conclusion: 1. Normal EKG response to Lexiscan infusion 2. No Lexiscan induced chest pain or cardiac arrhythmia. 3. Normal blood pressure and heart rate response. 4. Sestamibi/sestamibi perfusion scan pending; see separate report. Electronically Signed On 06-23-2024 12:28:22 CDT by Timothy Sands M.D. [email or web address]
[2024-06-15 08:28] VITALS: BMI 29.9
--- NOTE | 2024-06-15 08:29 | NMCV_ITS ---
NM tarah perf SPECT r/s* [id number] Lamberto Oliva Age: 63 Gender: M : 1960 Exam Date: 06/15/2024 09:26 Ordering Phys: Timothy Sands M.D ([email or web address]) Technologist: JESSICA Aleman Exam Location: [facility] Indications: cp STRESS TEST [facility] IMAGE PROTOCOL Rest/Stress 1 Lexiscan Day Radiopharmaceutical Dose (mCi) Administration Site Administered by Rest: Tc-99m 10.7 IV JESSICA Aleman Sestamibi Stress:Tc-99m 32.5 IV Deborah Lundy STOCKBROKER Sestamibi Rest: 15-Jun-2024 60 Discovery 630 Stress: 15-Jun-2024 30 Discovery 630 0.4mg Lexiscan. Supine position only as patient was unable to lay prone. SPECT RESULTS Technical Quality: Good Raw Data Analysis: Normal Image Corrections: No attenuation or motion correction applied Summed Stress Score: 0 Summed Rest Score: 0 Summed Difference Score: 0 PERFUSION FINDINGS Fairly uniform myocardial tracer uptake with no significant perfusion abnormalities FUNCTIONAL RESULTS (calculated via Gated SPECT) Stress Image LV EF (%): 53 Stress EDV (mL):111 TID: 1.15 Stress ESV (mL):52 FUNCTIONAL FINDINGS: Segmental wall motion analysis revealing no gross wall motion abnormalities IMPRESSIONS 1. Myocardial perfusion imaging revealing uniform myocardial tracer uptake with no significant Perfusion abnormalities 2. Normal LV ejection fraction of 53%. 3. LV wall motion analysis revealing no gross wall motion abnormalities. 4. Mildly dilated LV cavity, end-systolic volume of 52 mL Low probability for coronary ischemia, based on the above findings No similar previous studies are available for comparison Dr Salvador Dallas MD [facility] (Electronically Signed) Final Date: 15 Jun 2024 16:16 S
[2024-06-15] MEDS: regadenoson 0.4 Mg/5 ml Syringe IVP (09:57)
[2024-06-15 10:06] VITALS: BP 122/76; PULSE 73
== END 2024-06-15 08:24 | disposition home or self-care (01) ==
LOC: CDL 08:25
PROVIDERS: PCP Internal Medicine; Visit Provider Internal Medicine
DX: R07.9 Chest pain, unspecified (principal); R06.02 Shortness of breath; I42.0 Dilated cardiomyopathy
CPT/HCPCS: 36415; 78452; 93017; 93306; 96374; A9500; J2785

== ENCOUNTER → 2024-07-18 13:41 | Outpatient (BNVA) | payer MEDICARE, MEDICAID, SELFPAY | PROVIDERS: PCP Internal Medicine; Visit Provider Internal Medicine Rheumatology | DX: M17.0 Bilateral primary osteoarthritis of knee (principal); M19.90 Unspecified osteoarthritis, unspecified site; G56.01 Carpal tunnel syndrome, right upper limb; Z71.85 Encounter for immunization safety counseling; Z79.899 Other long term (current) drug therapy | CPT/HCPCS: 99214 ==

== ENCOUNTER 2024-09-12 09:17 | Outpatient (CLI) | payer MEDICARE, MEDICAID, SELFPAY ==
[2024-09-12 10:51] LABS: Hematocrit 44.2 % (37-53); Hemoglobin 15.10 g/dL (11.27-16.99); Mean Corpuscular HGB Conc 34.2 g/dL (30-55); Mean Corpuscular Hemoglobin 30.6 pg (27-33); Mean Corpuscular Volume 89.7 fl (82-101); Nucleated Red Blood Cells % 0 %; Platelet Count 158 10^3/cmm (157-399); Red Blood Count 4.93 10^6/uL (3.85-5.65); White Blood Count 5.40 10^3/uL (3.29-11.43)
[2024-09-12 11:23] LABS: Alanine Aminotransferase 14 U/L (0-41); Albumin Level 4.1 g/dL (3.5-5.2); Alkaline Phosphatase 73 U/L (40-130); Aspartate Amino Transferase 18 U/L (0-40); Globulin 2.3 g/dL (1.3-4.6); Total Protein 6.4 g/dL (6.6-8.7)
== END 2024-09-12 09:18 | disposition home or self-care (01) ==
LOC: LAB 09:19
PROVIDERS: PCP Internal Medicine; Visit Provider Internal Medicine Rheumatology
DX: Z79.899 Other long term (current) drug therapy (principal)
CPT/HCPCS: 36415; 80076; 82306; 82565; 85025; 85651; 86140; 86480

== ENCOUNTER → 2024-09-19 08:31 | Outpatient (BNVA) | payer OTHER, MEDICAID, SELFPAY | PROVIDERS: PCP Internal Medicine; Visit Provider Student in an Organized Health Care Education/Training Program | DX: M17.0 Bilateral primary osteoarthritis of knee (principal) | CPT/HCPCS: 20610; 99213; J3301; J9999 ==

== ENCOUNTER → 2024-10-04 12:31 | Outpatient (BNVA) | payer OTHER, MEDICAID, SELFPAY | PROVIDERS: PCP Internal Medicine; Visit Provider Internal Medicine | DX: R06.09 Other forms of dyspnea (principal); I10 Essential (primary) hypertension; Z87.891 Personal history of nicotine dependence | CPT/HCPCS: 99213 ==

== ENCOUNTER → 2024-10-30 07:57 | Outpatient (BNVA) | payer OTHER, MEDICAID, SELFPAY | PROVIDERS: PCP Internal Medicine; Visit Provider Student in an Organized Health Care Education/Training Program | DX: M25.561 Pain in right knee (principal); M17.11 Unilateral primary osteoarthritis, right knee | CPT/HCPCS: 20610; 73560; 73565; 99214; J3301; J9999 ==

== ENCOUNTER → 2024-11-19 06:50 | Outpatient (BNVA) | payer OTHER, MEDICAID, SELFPAY | PROVIDERS: PCP Internal Medicine; Visit Provider Podiatrist Foot & Ankle Surgery | DX: E11.42 Type 2 diabetes mellitus with diabetic polyneuropathy (principal); L60.3 Nail dystrophy; Q82.8 Other specified congenital malformations of skin; E11.8 Type 2 diabetes mellitus with unspecified complications; I73.9 Peripheral vascular disease, unspecified; Q66.71 Congenital pes cavus, right foot; Q66.72 Congenital pes cavus, left foot; L08.89 Other specified local infections of the skin and subcutaneous tissue; Z79.4 Long term (current) use of insulin | CPT/HCPCS: 11721; 17110; 99214 ==

== ENCOUNTER 2024-12-08 09:43 | Emergency (ER) | payer OTHER, MEDICAID, SELFPAY ==
--- NOTE | 2024-12-08 09:46 | XRR_ITS ---
PROCEDURE INFORMATION: Exam: XR Right Hand Exam date and time: 12/08/2024 9:55 AM Age: 64 years old Clinical indication: Pain; Hand; Right; Prior surgery; Surgery date: 6+ months; Surgery type: RT carpal tunnel; Additional info: RT hand pain; Injury to RT thumb. No history of recent surgery is otherwise provided. TECHNIQUE: Imaging protocol: Radiologic exam of the right hand. 3image(s) are provided. Views: 3 or more views. COMPARISON: Right hand report of 08/21/2023 as well as right wrist report of 09/21/2022. FINDINGS: Bones/joints: Osseous alignment is maintained. No interval displaced fracture or dislocation is appreciated.There are degenerative changes present of the carpal level including some radiocarpal level narrowing as well as degeneration of the 1st carpometacarpal junction with spurring, narrowing and sclerosis. There is subtle ulnar minus developmental variance. Soft tissues: No radiopaque foreign body or subcutaneous emphysema is appreciated. There is slight prominence of the soft tissues overall.Atherosclerotic vascular changes are demonstrated. No other significant interval changes are appreciated. XR/XR hand RT min 3V* [id number] IMPRESSION: There are degenerative changes present with no interval fracture or dislocation appreciated.
[2024-12-08 09:49] VITALS: BP 142/90; PULSE 65; RESP 16; TEMP 36.4; O2SAT 98
--- NOTE | 2024-12-08 09:50 | W.ED.UPPEXIN ---
HPI - Extremity Injury (Upper) General: Chief Complaint: Extremity Injury, Upper Stated Complaint: Hurt thumb on R hand Time Seen by Provider: 12/08/24 09:50 History of Present Illness: 64-year-old male crush injury to the right thumb has a subungual hematoma in the proximal nail no other injury. Occurred last night. Related Data Home Medications ?Medication ?Instructions ?Recorded ?Confirmed allopurinol 100 mg tablet 100 mg PO QAM 05/24/22 11/19/24 aspirin 81 mg tablet,delayed 81 mg PO DAILY PRN Chest Pain 08/22/22 11/19/24 release atorvastatin 20 mg tablet 20 mg PO BEDTIME 08/22/22 11/19/24 empagliflozin 25 mg tablet 25 mg PO QAM 08/22/22 11/19/24 (Jardiance) omeprazole 40 mg capsule,delayed 40 mg PO QAM 08/22/22 11/19/24 release epinephrine 0.15 mg/0.3 mL 0.15 mg IM Q30M PRN Allergy 11/24/22 11/19/24 injection,auto-injector Symptoms albuterol sulfate 90 mcg/actuation 1 - 2 puff inhalation Q4H PRN 07/04/23 11/19/24 aerosol inhaler Shortness Of Breath ramipril 2.5 mg capsule 2.5 mg PO DAILY 07/04/23 11/19/24 semaglutide 1 mg/dose (4 mg/3 mL) 1 mg SUBCUT Q7D 07/04/23 11/19/24 subcutaneous pen injector (Ozempic) insulin glargine 100 unit/mL (3 46 unit SUBCUT DAILY 05/31/24 11/19/24 mL) subcutaneous pen (Lantus Solostar U-100 Insulin) Previous Rx's ?Medication ?Instructions ?Recorded Diabetic Shoes with 3 sets of #1 ea 04/08/22 insoles biateral wrist braces #1 ea 09/21/22 leg brace (JONNATHAN Knee Brace) #1 ea 01/13/23 RIGHT WRIST BRACE #1 ea 02/04/23 Diabetic shoes #1 ea 03/08/23 Hinged Knee Brace #1 ea 09/19/24 adalimumab 40 mg/0.8 mL 40 mg (0.8 mL) SUBCUT .Q7days #4 ea 10/16/24 subcutaneous pen kit (Humira Pen) pregabalin 100 mg capsule (Lyrica) 100 mg PO BID #60 caps 10/22/24 sulfasalazine 500 mg tablet 500 mg PO BID #180 tabs 10/22/24 Hinged Knee Brace #1 ea 10/30/24 diclofenac sodium 1 % topical gel 4 g topical QID #100 grams 10/30/24 (Voltaren Arthritis Pain) aluminum chloride 20 % topical 1 applic topical ONCE #37.5 mL 11/19/24 solution (Drysol) mupirocin 2 % topical ointment 1 applic topical TID #15 grams 11/19/24 (Centany) Allergies Allergy/AdvReac Type Severity Reaction Status Date / Time insect venom Allergy ALGY-Anaphy Verified 11/19/24 06:53 laxis PFSH ED PFSH: Medical History Immunization counseling High risk medication use Osteoarthritis of knees, bilateral Inflammatory arthritis Hypertension Polyneuropathy due to type 2 diabetes mellitus Onycholysis of toenail Surgical History History of amputation of great toe Family History Mother Diabetes Denies family history of Lupus (systemic lupus erythematosus) Rheumatoid arthritis CAD (coronary artery disease) Clotting disorder Dementia Hyperlipidemia Psychiatric illness Chronic kidney disease (CKD) Suicide Anesthesia complication Bleeding disorder Family history of premature coronary artery disease Lung disease Cancer Hypertension Stroke Social History Smoking and tobacco/nicotine status: former use of tobacco/nicotine Alcohol intake: never Substance/Drug Use: never Current occupational status: disabled Physical Exam Extremity: OTHER: Examination of the right thumb normal range of motion normal sensation subungual hematoma present no deformity no lacerations Procedures Nail Trephination Time out: Yes Location (finger): right and thumb Sterile prep: other (Alcohol) Method of drainage: nail cautery Procedure successful: Yes Patient tolerated procedure: well Course Vital Signs: Vital signs: Vital Signs Temperature 97.6 F 12/08/24 09:49 Pulse Rate 73 12/08/24 10:20 Respiratory Rate 16 12/08/24 09:49 Blood Pressure 116/84 12/08/24 10:20 Pulse Oximetry 92 12/08/24 10:20 Oxygen Delivery Me thod Room Air 12/08/24 09:49 MDM - Extremity Injury (Upper) Medical Decision Making Trephination of the L good relief of discomfort. X-ray was negative discharge patient home will follow-up as needed Lab Data Radiology Impressions Hand X-Ray 12/08/24 09:46 IMPRESSION: There are degenerative changes present with no interval fracture or dislocation appreciated. XR interpretation done by ED provider, pending radiology final review ED provider radiology interpretation(s): X-ray of the right hand no acute fractures some degenerative changes no tuft fractures Discharge Plan Discharge Patient Disposition: Home Clinical Impression: Subungual hematoma of digit of hand Qualifiers: Encounter type: initial encounter Qualified Code(s): S60.10XA - Contusion of unspecified finger with damage to nail, initial encounter Condition: Stable Prescriptions: No Action epinephrine 0.15 mg/0.3 mL auto-injector 0.15 mg IM Q30M PRN (Reason: Allergy Symptoms) Rx Instructions: do not exceed 12 doses per 24 hrs (DME) Diabetic shoes See Rx Instructions .ROUTE .MEDSUPPLY Qty: 1 0RF Rx Instructions: With 3 pairs of inserts by the shoe sheilacornell allopurinol 100 mg tablet 100 mg PO QAM (DME) Diabetic Shoes with 3 sets of insoles See Rx Instructions .Route .MEDSUPPLY Qty: 1 0RF Rx Instructions: As directed by HOME (DME) biateral wrist braces See Rx Instructions .Route .MEDSUPPLY Qty: 1 0RF Rx Instructions: As directed (DME) RIGHT WRIST BRACE See Rx Instructions .Route .MEDSUPPLY Qty: 1 0RF Rx Instructions: As directed (DME) Hinged Knee Brace See Rx Instructions .Route .MEDSUPPLY Qty: 1 0RF Rx Instructions: As directed Length of need: 99 Drysol 20 % solution 1 applic topical ONCE Qty: 37.5 3RF Rx Instructions: apply at bedtime to the bottom of the feet X 2 weeks mupirocin [Centany] 2 % ointment 1 applic topical TID Qty: 15 1RF (DME) Hinged Knee Brace See Rx Instructions .Route .MEDSUPPLY Qty: 1 0RF Rx Instructions: As directed Length of need: 99 diclofenac sodium [Voltaren Arthritis Pain] 1 % gel 4 g topical QID Qty: 100 0RF Rx Instructions: apply to single knee, ankle, foot; for foot includes sole/toes/top of foot (DME) JONNATHAN Knee Brace Misc See Rx Instructions .Route Qty: 1 0RF Rx Instructions: As directed Humira Pen 40 mg/0.8 mL pen injector kit 40 mg SUBCUT .Q7days Qty: 4 6RF sulfasalazine 500 mg tablet 500 mg PO BID Qty: 180 0RF pregabalin [Lyrica] 100 mg capsule 100 mg PO BID Qty: 60 3RF atorvastatin 20 mg tablet 20 mg PO BEDTIME omeprazole 40 mg capsule,delayed release(DR/EC) 40 mg PO QAM aspirin 81 mg Tablet,Delayed Release (Dr/Ec) 81 mg PO DAILY PRN (Reason: Chest Pain) Jardiance 25 mg tablet 25 mg PO QAM insulin glargine [Lantus Solostar U-100 Insulin] 100 unit/mL (3 mL) insulin pen 46 unit SUBCUT DAILY ramipril 2.5 mg capsule 2.5 mg PO DAILY albuterol sulfate 90 mcg/actuation HFA aerosol inhaler 1 - 2 puff INHALATION Q4H PRN (Reason: Shortness Of Breath) Ozempic 1 mg/dose (4 mg/3 mL) pen injector 1 mg SUBCUT Q7D Discharge Orders: Discharge ED (Routine); Ordered 12/08/24 Ordered By: Te Hoang Referrals: Lauren Kaufman MD [Primary Care Provider, Internal Medicine] Patient Instructions: Opioid Safety, Pain Management, Patient Portal & Jada Instructions Activity Restrictions/Additional Instructions: [facility]. It is very important that you follow up as instructed or that you return to the Emergency Department should you have concerns or if your condition changes or worsens in any way. Emergency department visits are focused on emergent conditions, in some cases you may require further evaluation on an outpatient basis. You were seen in the emergency room with a subungual hematoma (blood collecting under the nail). This is relieved by burning 2 holes in the fingernail and expressing the blood. Apply Band-Aid as needed. X-ray of the finger did not show fracture. (Please note that included in your discharge packet is information concerning opioid safety and pain management. This information is given to all patients were discharged from the ER regardless of their discharge diagnosis or the medicines they usually take or are prescribed.) Print Language: Maltese Coding Level of Care Code ED Greenskeeper Supervisor for Aki Jimenez
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
[2024-12-08 10:20] VITALS: BP 116/84; PULSE 73; O2SAT 92
== END 2024-12-08 10:25 | disposition home or self-care (01) ==
PROVIDERS: Emergency Provider Family Medicine; PCP Internal Medicine
DX: S60.10XA Contusion of unspecified finger with damage to nail, initial encounter (principal); Z79.82 Long term (current) use of aspirin; Z79.4 Long term (current) use of insulin; Z87.891 Personal history of nicotine dependence; E11.42 Type 2 diabetes mellitus with diabetic polyneuropathy; I10 Essential (primary) hypertension; X58.XXXA Exposure to other specified factors, initial encounter
CPT/HCPCS: 11740; 73130; 99283

== ENCOUNTER → 2024-12-25 15:21 | Outpatient (BNVA) | payer OTHER, MEDICAID, SELFPAY | PROVIDERS: PCP Internal Medicine; Visit Provider Student in an Organized Health Care Education/Training Program | DX: M25.562 Pain in left knee (principal); S83.207A Unspecified tear of unspecified meniscus, current injury, left knee, initial encounter; S89.92XA Unspecified injury of left lower leg, initial encounter; S83.8X2A Sprain of other specified parts of left knee, initial encounter; X58.XXXA Exposure to other specified factors, initial encounter | CPT/HCPCS: 73560; 73565; 99213 ==

== ENCOUNTER → 2024-12-26 10:46 | Outpatient (BNVA) | payer OTHER, MEDICAID, SELFPAY | PROVIDERS: PCP Internal Medicine; Visit Provider Dermatology | DX: L71.9 Rosacea, unspecified (principal); L73.8 Other specified follicular disorders; D22.22 Melanocytic nevi of left ear and external auricular canal; D22.62 Melanocytic nevi of left upper limb, including shoulder; D22.5 Melanocytic nevi of trunk; L82.1 Other seborrheic keratosis; L91.8 Other hypertrophic disorders of the skin; D48.5 Neoplasm of uncertain behavior of skin; L57.0 Actinic keratosis | CPT/HCPCS: 11102; 17000; 99204 ==

== ENCOUNTER 2025-01-07 07:08 | Outpatient (CLI) | payer OTHER, MEDICAID, SELFPAY ==
--- NOTE | 2025-01-07 08:00 | MR_ITS ---
WS: [id number] MRI LEFT KNEE HISTORY: left knee pain/new injury/rule out meniscus/ligamentous tear COMPARISON: 08/09/2023 Anterior cruciate ligament: Mild intermediate signal throughout the ACL. The ACL is slightly wavy in its appearance which is new since the prior study. There is no complete tear. No tear is identified. Posterior cruciate ligament: Intact. Medial collateral ligament: MCL is intact. There is a small amount of fluid associated with the MCL but no full-thickness tear. Posterior lateral corner structures: Increased signal in the lateral collateral ligament. Similar to the prior study consistent with a chronic interstitial tear. Medial menisci: Intermediate signal in the posterior horn extending towards the intra-articular surface. Signal is most consistent with intrasubstance degeneration and not a tear. Lateral meniscus: Intact. Normal signal, size and shape. Extensor mechanism: Distal quadriceps tendon and patellar tendons are intact. Fluid and soft tissue: Small suprapatellar joint effusion. No Pagan's cyst. Osseous and articular structures: Patellofemoral compartment: Normal position of the patella. Mild to moderate narrowing patellofemoral joint space. There is a new full-thickness cartilage defect along the medial facet. There is no underlying marrow edema. A few foci of chondromalacia involving the lateral patellar facet. Medial compartment: Moderate narrowing the medial compartment. Progression of joint space narrowing and chondromalacia. New subchondral edema along the medial weightbearing surface of the femoral condyle and marginal osteophytes. Progression of chondromalacia. Lateral compartment: Mild to moderate narrowing lateral compartment with mild progression since the prior study. Small marginal osteophytes. Mild thinning of the cartilage. No marrow edema. Moderate thinning involving the medial patellar retinaculum with increased signal. There is no full-thickness defect. There was also mild thinning on the prior examination. MR/MR knee LT wo con* [id number] IMPRESSION: 1. Intermediate signal through a small caliber ACL. The ACL is slightly wavy i n its appearance which is new suggesting there may be a tear. No identifiable t ear is identified. If there is a tear is only partial. 2. No meniscal tear identified. 3. 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 4. Mild to moderate narrowing of the patella femoral joint space. 5. No full-thickness cartilage defect of the medial patellar facet with no und erlying marrow edema. 6. Additional multi foci of chondromalacia involving the lateral patellar face t. 7. Thinning and intermediate signal in the medial patellar retinaculum is eva lar to the prior study. 8. Moderate narrowing medial compartment with progression of joint space narro wing and chondromalacia. New subchondral edema along the medial weightbearing s urface of the femoral condyle. 9. Mild to moderate narrowing lateral compartment with mild progression since the prior exam.
== END 2025-01-07 07:09 | disposition home or self-care (01) ==
LOC: RAD 07:09
PROVIDERS: PCP Internal Medicine; Visit Provider Student in an Organized Health Care Education/Training Program
DX: M25.562 Pain in left knee (principal); S83.207A Unspecified tear of unspecified meniscus, current injury, left knee, initial encounter; S89.92XA Unspecified injury of left lower leg, initial encounter; X58.XXXA Exposure to other specified factors, initial encounter
CPT/HCPCS: 73721